=== PATIENT | female | born 1975 | race Caucasian/White ===

== ENCOUNTER 2025-02-02 15:15 | Inpatient (IN) | payer BC, SELFPAY ==
[2025-02-02 15:58] VITALS: BP 108/62; PULSE 72; RESP 17; TEMP 36.8; O2SAT 95; BMI 27.1
[2025-02-02 18:00] VITALS: BP 103/61; PULSE 72; RESP 16; TEMP 36.9; O2SAT 96
[2025-02-02] MEDS: Cefdinir 300 MG Capsule PO (21:54)
[2025-02-02] MEDS: Midodrine HCl 5 MG Tablet PO (21:54)
[2025-02-02] MEDS: tiZANidine HCl 2 MG Tablet PO (21:54)
[2025-02-02] MEDS: Enoxaparin 80 MG/0.8 ML Syringe SC (21:54)
[2025-02-02 22:00] VITALS: PULSE 72; RESP 15; O2SAT 94
[2025-02-02 23:50] VITALS: BP 108/63; PULSE 70; RESP 16; TEMP 36.7; O2SAT 95
[2025-02-03] VITALS (8 sets, daily range): BP systolic 88–130; BP diastolic 37–74; PULSE 66–74; RESP 15–18; TEMP 36.7–37.2; O2SAT 93–97
[2025-02-03] MEDS: tiZANidine HCl 2 MG Tablet PO ×3 (05:20→20:14)
[2025-02-03] MEDS: Midodrine HCl 5 MG Tablet PO ×3 (05:20→20:46)
[2025-02-03 06:51] LABS: Absolute Lymphocyte Count 1.04 X10^3/uL (0.83-4.51); Absolute Neutrophil Count 9.2 X10^3/uL (2.0-7.7); Basophil% 0.8 % (0-1); Eosinophil# 0.18 X10^3/uL; Eosinophils% 1.5 % (0-5); Hematocrit 35.7 % (37-47); Hemoglobin 11.9 g/dL (12.0-15.0); Lymphocyte # 1.04 X10^3/ul (0.83-4.51); Lymphocyte % 8.8 % (19-41); Mean Corp Hgb Conc 33.3 g/dL (32-36); Mean Corpuscular Hgb 32.2 pg (27.0-32.0); Mean Corpuscular Volume 96.7 fL (81-99); Monocyte# 0.86 X10^3/uL; Monocyte% 7.3 % (0-10); NRBC Flagged by Analyzer 0 % (0-5); Neutrophil # 9.23 X10^3/uL (2.7-7.7); Neutrophil % 78.2 % (47-70); POSITIVE MORPHOLOGY YES; Platelet Count 380 K/mm3 (150-450); RBC Distribution Width CV 13.4 % (11.6-14.6); RBC Distribution Width SD 48.3 fl (35.1-43.9); Red Blood Count 3.69 M/mm3 (4.2-5.4); White Blood Count 11.8 K/mm3 (4.4-11.0)
[2025-02-03 07:02] LABS: International Normalized Ratio 1.8; Prothrombin Time (Protime)PT. 21.3 SECONDS (11.7-14.9)
[2025-02-03 07:25] LABS: Differential Indicated SCAN CRITERIA MET
[2025-02-03 07:27] LABS: Anion Gap 11 (5-15); BUN 20 mg/dL (4-19); BUN/Creat Ratio 24.1 RATIO (10-20); Calcium,Total 9.4 mg/dL (7.6-11.0); Carbon Dioxide 24.8 mmol/L (21.0-32.0); Chloride 98 mmol/L (98-108); Creatinine, Serum 0.81 mg/dL (0.70-1.20); EST Glomerular Filtration Rate 90 (>60); Estimated Creatinine Clearance 82.41 ml/min (50-250); Glucose 111 mg/dL (70-99); Potassium 4.3 mmol/L (3.3-5.1); Sodium Level 134 mmol/L (133-145)
[2025-02-03 07:50] LABS: Magnesium 2.2 mg/dL (1.5-2.2); Phosphorus 3.8 mg/dL (2.7-4.5)
[2025-02-03] MEDS: Enoxaparin 80 MG/0.8 ML Syringe SC ×2 (08:38→20:13)
[2025-02-03] MEDS: Cefdinir 300 MG Capsule PO ×2 (08:38→20:14)
[2025-02-03] MEDS: Amiodarone 200 MG Tablet PO (08:38)
[2025-02-03] MEDS: Multivitamins,Therapeutic Tablet 1 TABLET PO (08:38)
[2025-02-03] MEDS: Pantoprazole Sodium 40 MG Tablet PO (08:39)
--- NOTE | 2025-02-03 09:52 | PCM.HP.STD ---
HPI - General General Date of Admission: 02/02/25 Date of Service: 02/03/25 Chief Complaint: Non-traumatic spinal cord injury HPI Narrative VIC GOLDSTEIN, is a 49 YO F with a PMH of atrial flutter, rheumatic fever, mitral valve replacement, aortic valve replacement, chronic anticoagulation with warfarin, tricuspid valve repair and left atrial appendage closure who presented to an emergency room on 01/17/2025 with complaints of headache and back pain with radiation of pain into her chest. She was transferred to [facility] on January 18, 2025. She was started on a heparin drip. She underwent a stress test which showed probable variable breast attenuation artifact but ischemia could not be excluded. An echocardiogram was concerning for moderate to severe aortic valve regurgitation. The EF was 60 to 65%. Right ventricular systolic pressure was mildly elevated at 36. The tricuspid valve had mild to moderate regurgitation. She was seen by cardiology. Further cardiac workup was not pursued due to sudden onset of severe back pain with acute bilateral lower extremity weakness and numbness along with right arm weakness. Neurosurgery was consulted and she had an MRI of her thoracic, lumbar and cervical spine that showed heterogeneous fluid collection or mass at the level of T1-T6 with moderate cord compression and mild cord edema at T2-T4. Patient had a rapid loss of sensation and motor function from the nipple level down. She underwent emergent thoracic laminectomy (T1-T5), decompression and hematoma evacuation by Dr. Gentile. She was cleared to restart anticoagulation on January 21, 2025. Complications post op included hypotension, constipation and urine retention. She has a Valencia catheter present at admission to rehab and is on Cefdinir for UTI (had Rocephin 01/31-02/02). Apparently no culture was done.......requested results and none were sent. She is currently on Midodrine 5 mg TID but, at presentation she has severe orthostatic hypotension causing syncope. Recovered very quickly with lying her down. Abd is distended and tympanic. Can not tell when she is having a BM. Had a medium non-formed stool today. Was on stool softeners at the previous hospital (was on MiraLAX) but, on no stool softeners at the time of transfer. She was transferred to the acute inpt rehab unit at [facility] on 02/02/25 for 3 hours of therapy daily. Owns her own house, multilevel. Could live in the basement........there is a walk in shower and a kitchen down there. Has 1 step to enter the house. No ramp. Previously independent with all ADL's. Denies any hx of anx/depression. Feeling overwhelmed at the present time. All lab drawn this morning was personally reviewed. White blood cell count is elevated at 11.8 with 78% neutrophils. The immature granulocytes are 3.4% which is elevated. Hemoglobin is 11.9 and the MCV is 96.7. The RDW is elevated. Platelets are within normal limits. INR today is 1.8. Currently taking warfarin 2 mg p.o. daily and is also on therapeutic Lovenox until the INR is therapeutic. Sodium is 134 and the potassium is 4.3. Serum bicarb is normal. The BUN is 20 with a creatinine of 0.81 and a BUN/creatinine ratio of 24.1. Calcium is 9.4 and the phosphorus is 3.8 with a magnesium of 2.2. She had syncope when therapy got her up this morning. BP dropped from 130 systolic to 88/37 with going from lying down to sitting at the EOB with legs dependent. She received 5 mg of midodrine today. Fluid balance is -620 since admission to rehab yesterday. Chronic Valencia catheter for neurogenic bladder. ECHO: Left atrium is mildly to moderately dilated. Right atrium is normal in size. Left ventricular wall thickness is mildly increased with normal systolic function. Unable to assess diastolic dysfunction. There is a mechanical prosthesis at the mitral valve. No evidence of stenosis. No significant regurgitation. Aortic valve is trileaflet and was well-visualized. Leaflets are moderately thickened. There was no stenosis. There was moderate to severe regurgitation reported but she has no diastolic murmur. Tricuspid valve showed no evidence of stenosis but there was mild to moderate regurgitation. The IVC was dilated. [facility] Medical History (Updated 02/04/25 @ 16:[address] Brooke Alvarado DO) History of rheumatic fever Atrial flutter Chronic anticoagulation Spinal cord injury at T1-T6 level Home Medications ?Medication ?Instructions ?Recorded ?Last Taken ?Type amiodarone 200 mg tablet 200 mg PO DAILY b/p 02/02/25 Unknown History cefdinir 300 mg capsule 300 mg PO BID antibiotic 02/02/25 Unknown History enoxaparin 80 mg/0.8 mL 80 mg subcut Q12H dvt 02/02/25 Unknown History subcutaneous syringe ergocalciferol (vitamin D2) 1,250 1,250 mcg PO QWEEK supplement 02/02/25 Unknown History mcg (50,000 unit) capsule midodrine 5 mg tablet 5 mg PO TID B/P 02/02/25 Unknown History pantoprazole 40 mg tablet,delayed 40 mg PO DAILY Gerd 02/02/25 Unknown History release tizanidine 2 mg tablet 2 mg PO Q8H muscle relaxer 02/02/25 Unknown History warfarin 2 mg tablet 2 mg PO DAILY anticoagulant 02/02/25 Unknown History Allergy/AdvReac Type Severity Reaction Status Date / Time No Known Allergies Allergy Verified 02/02/25 19:37 Family History (Updated 02/03/25 @ 11:[address] Brooke Alvarado DO) Grandmother CVA (cerebral vascular accident) maternal GM of a stroke Father , of COVID complications. No problems noted. Other Hypertension Surgical History (Updated 02/03/25 @ 11:[address] Brooke Alvarado DO) History of left atrial appendage closure History of tricuspid valve repair H/O laminectomy History of mitral valve replacement with mechanical valve Social History (Updated 02/03/25 @ 11:[address] 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 [employer] Smoking Status: Never smoker alcohol intake: never substance use type: does not use diet: gluten free scott/jewish: Mennonite ROS Constitutional Constitutional: Reports fatigue and weakness; Denies anorexia, change in weight, chills, fever(s) or night sweats Eyes Eyes: Denies blurry vision, change in vision, eye pain or loss of vision ENT HEENT: Denies abnormal hearing, dysphagia, headache(s), hearing loss, nasal congestion or sore throat Cardiovascular Cardiovascular: Reports lightheadedness, syncope and weakness in extremities; Denies chest pain, dyspnea on exertion, edema, orthopnea, palpitations or paroxysmal nocturnal dyspnea Respiratory/Chest Respiratory/Chest: Denies cough, dyspnea, shortness of breath at rest, shortness of breath with exertion or wheezing Gastrointestinal Gastrointestinal: Reports change in bowel habits, change in stool character, constipation, fecal incontinence and other Details: abd distention ; Denies abdominal pain, cramping, diarrhea, dyspepsia, dysphagia, hematemesis, hematochezia, nausea or vomiting Genitourinary Genitourinary: Reports urinary incontinence and other Details: urine retention due to neurogenic bladder due to non-traumatic spinal cord injury ; Denies dysuria, hematuria or nocturia Musculoskeletal Musculoskeletal: Denies back pain, joint pain, joint swelling or neck pain Integumentary Integumentary: Reports other Details: No skin breakdown ; Denies jaundice or rash Neurologic Neurologic: Reports focal weakness, numbness, paresthesias, sensory deficit, syncope and weakness; Denies abnormal movements, behavior changes, confusion, convulsions, disequilibrium, dizziness, headache(s), memory loss, seizures, tremor(s) or vertigo Psychiatric Psychiatric: Denies anxiety, depression, homicidal ideation or suicidal ideation Endocrine Endocrinology: Denies change in body appearance, polydipsia or polyuria Hematologic/Lymphatic Hematologic/Lymphatic: Denies easy bleeding, easy bruising or lymphadenopathy Allergic/Immunologic Allergic/Immunologic: Denies rhinitis, eczemia or asthma Vital Signs Vital Signs Vital Signs: 02/02/25 15:58 02/02/25 15:58 02/02/25 18:00 Temperature 98.3 F 98.4 F Temperature Source Oral Oral Pulse Rate 72 72 Respiratory Rate 17 16 Respiratory Effort Respiratory Depth Respiratory Pattern Blood Pressure 108/62 103/61 Blood Pressure Mean 77 75 Blood Pressure Source Monitor Blood Pressure Position Semi-Fowlers Blood Pressure Location Left Arm Pulse Ox 95 96 Oxygen Delivery Method Room Air Room Air Room Air 02/02/25 22:00 02/02/25 23:50 02/03/25 05:17 Temperature 98.0 F 98.1 F Temperature Source Temporal Oral Pulse Rate 72 70 74 Respiratory Rate 15 16 17 Respiratory Effort Normal Non-Labored Respiratory Depth Normal Respiratory Pattern Normal Blood Pressure 108/63 99/53 L Blood Pressure Mean 78 68 Blood Pressure Source Monitor Blood Pressure Position Semi-Fowlers Blood Pressure Location Left Arm Pulse Ox 94 95 93 Oxygen Delivery Method Room Air Room Air Room Air Weight Weight: 157 lb 13.616 oz Body Mass Index (BMI) 27.1 Physical Exam Const alert, oriented x3 and no apparent distress General Appearance: cooperative, well kempt and well developed HEENT normocephalic, head/scalp atraumatic and hearing grossly normal bilaterally HEENT Narrative: Dry mucous membranes, tongue protrudes on the midline. No buccal lesions. No evidence of thrush. Eyes PERRL, EOMs intact bilaterally, conjunctivae normal and no scleral icterus Eyes Narrative: No discharge from the eyes and no mattering of the eyelashes. General Eye: normal appearance of both eyes and normal light reflex Neck full ROM, supple, no meningeal signs, thyroid normal, No nodes and no carotid bruits General: trachea midline Chest Chest: symmetrical chest wall rise Resp normal respiratory effort Resp Narrative: Clear to auscultation with good air exchange anterior and lateral. Will listen to the posterior lung vicente when I have helped to roll her on her side. Occasional nonproductive cough. Denies shortness of breath. No chest pain. Cardio regular rate, regular rhythm, S1 normal heart sound, S2 normal heart sound, no rub and no gallops Cardio Narrative: click in the mitral listening post due to mechanical MV. Very soft systolic MM at the 2nd RICS with radiation to the LVOT. No diastolic MM appreciated. GI GI Narrative: Mildly distended and tympanic. Nontender to palpation. Active bowel sounds in all 4 quadrants. No guarding with palpation. No sensation to pinprick of the abd wall. no CVA tenderness Bladder / Kidney Exam: catheter in place Extremity no pedal edema Extremity Narrative: AFO's present on both LE's to prevent foot drop and pressure ulcers on the heels. Skin no rashes or lesions noted Skin Narrative: I could not examine the incision because she was lying on her back. Will examine when I have helpt to turn her. General Skin Exam: no breakdown Neuro oriented x3 and CN's II-XII intact bilaterally Neuro Narrative: Good strength in the UE's. Good hand it field technician BL. Intact sensation to pinprick in both UE's. She has no sensation to light touch or pinprick from 2 above the nipple line distally. No movement in the LE's. Valencia in place for neurogenic bladder. Has fecal incontinence and does not know when she is having a BM. Psych thought process normal, cooperative, speech normal, denies hallucinations, denies homicidal ideation and denies suicidal ideation Psych Narrative: affect is flat. We discussed the sx of depression and although she feels overwhelmed she does not feel depressed. She is feeling fatigued a lot of the time. Will continue to monitor for signs of depression closely. Appearance: grossly normal, appropriate and well kempt Attitude: calm and engaged Activity / Motor Behavior: appropriate eye contact Speech: normal speech Mood & Affect: flat affect Results Lab / Micro Data 02/03/25 06:43 02/04/25 05:18 Labs: Laboratory Results - last 24 hr 02/03/25 06:43: WBC 11.8 H, RBC 3.69 L, Hgb 11.9 L, Hct 35.7 L, MCV 96.7, MCH 32.2 H, MCHC 33.3, RDW Std Deviation 48.3 H, RDW Coeff of Hans 13.4, Plt Count 380, MPV 11.0, Immature Gran % (Auto) 3.400 H, Neut % (Auto) 78.2 H, Lymph % (Auto) 8.8 L, [place] % (Auto) 7.3, Eos % (Auto) 1.5, Baso % (Auto) 0.8, Absolute Neuts (auto) 9.2 H, Absolute Lymphs (auto) 1.04, Nucleated RBC % 0, PT 21.3 H, INR 1.8, Sodium 134, Potassium 4.3, Chloride 98, Carbon Dioxide 24.8, Anion Gap 11, BUN 20 H, Creatinine 0.81, Estim Creat Clear Calc 82.41, Est GFR (MDRD) Non-Af 90, BUN/Creatinine Ratio 24.1 H, Glucose 111 H, Calcium 9.4, Phosphorus 3.8, Magnesium 2.2 Assessment & Plan Assessment/Plan (1) Physical debility: (2) Spinal cord injury at T1-T6 level: (3) H/O laminectomy: PLAN: Laminectomy T1-T5 with decompression and evacuation of hematoma on 01/19/2025 at [facility] by Dr. Gentile. (4) Paraplegia following spinal cord injury: PLAN: No sensation up to about 2 above the nipple line and has bowel incontinence and urine retention. Good strength in the UE's with intact sensation. (5) Urine retention: PLAN: Valencia catheter in place at admission to rehab. (6) Neurogenic dysfunction of the urinary bladder: (7) UTI (urinary tract infection): QUALIFIERS: Urinary tract infection type: acute cystitis Hematuria presence: without hematuria Qualified Code(s): N30.00 - Acute cystitis without hematuria PLAN: Likely due to neurogenic bladder/urine retention. Present at admission to rehab. Received 3 days of IV Rocephin and was transitioned to cefdinir 300 mg twice daily at the time of transfer. (8) Autonomic orthostatic hypotension: (9) Constipation: QUALIFIERS: Constipation type: other constipation type Qualified Code(s): K59.09 - Other constipation (10) Dehydration: (11) Chronic anticoagulation: PLAN: With warfarin due to mechanical MV. (12) History of mitral valve replacement with mechanical valve: (13) History of tricuspid valve repair: (14) Atrial flutter: QUALIFIERS: Atrial flutter type: unspecified Qualified Code(s): I48.92 - Unspecified atrial flutter (15) History of left atrial appendage closure: PLAN: Plan PLAN PT for gait stability OT for ADL's ST for evaluation Analgesics as needed Bowel protocol Fall precautions Assess for Anxiety/Depression GI prophylaxis -pantoprazole DVT prophylaxis -continue warfarin until the INR is therapeutic. Continue Lovenox until the INR is therapeutic. Follow up with [] following DC from [facility] Rehab AM lab including CMP, CBC, Mag and Phos 1 L of normal saline over 2 hours then decrease rate to 80 cc/h Continue midodrine 5 mg 3 times daily. Recheck orthostatics in the a.m. and if she is still orthostatic we will need to increase the midodrine dose. UA today-Valencia catheter present at admission [facility]R until the INR is stable and therapeutic, > 2.0 CMP, TSH, cortisol, PT/INR in the AM Charges/Coding Visit Charges Inpatient E&M: 13300 Init Hosp L3
--- NOTE | 2025-02-03 10:48 | RAD_ITS ---
PROCEDURE: ABDOMEN SINGLE VIEW 02/03/2025 REASON FOR EXAM: CONSTIPATION TECHNIQUE: Single view abdomen. FINDINGS: The bowel gas pattern is unremarkable. A moderate generalized fecal burden is seen. There is no evidence of obstruction or ileus. There is no evidence of free perforation. There is no evidence of hepatosplenomegaly. No abnormal soft tissue calcifications are seen. Osseous structures are unremarkable for age. RAD/Abdomen Single View IMPRESSION: Nonspecific abdomen. Moderate fecal burden. Reading Location: [place] [id number]
[2025-02-03] MEDS: 0.9% Normal Saline (1000mL) 1,000 ML 80 ML IV (11:38)
[2025-02-03 11:39] LABS: Bacteria 0 SEEN /hpf (None Seen); Mucous, Urine 0 SEEN /hpf (<or=2+); Squamous Epithelial Cells - UA 0 SEEN /hpf (5-10)
[2025-02-03 11:41] LABS: Color, Urine Yellow (Yellow); Glucose, Dipstick Normal (Normal); Ketone-Dipstick Negative (Negative); Leukocyte Esterase-Dipstick 500 /ul (Negative); Nitrite-Dipstick Positive (Negative); Occult Blood-Urine 25 /ul (Negative); Protein-Dipstick 15 mg/dl (Negative); Urine Bilirubin Dipstick Negative (Negative); Urine Clarity Cloudy (Clear); Urine Urobilinogen Normal (Normal)
[2025-02-03 11:52] LABS: Amorphous Sediment 2+; White Blood Cells 5-10 SEEN /hpf (0-5)
[2025-02-03 11:53] LABS: Coarse Granular Cast 0-5 SEEN /lpf (0-5 /lpf); Red Blood Cells-Urine 0 SEEN /hpf (0-5)
--- NOTE | 2025-02-03 14:59 | REHABEVAL_ITS ---
Admission Information Primary Diagnosis:: DEBITILY DUE TO NON-TRAUMATIC SPINAL CORD INJURY WITH PARAPLEGIA Status Changes from Prescreening?: No changes Identified Actual Problem List:: Infection, Skin Intergrity, Bladder Incontinence (Neurogenic bladder with urine retention), Bowel, Incontinence, Bowel, Constipation, Alteration in Sleep, Mobility Impaired, Self Care Deficit, BP, Hypotension, Fluid Change-Dehydration and Alteration-Leisure Activ. Potential Problem List:: DVT, Bleeding, Infection, UTI, Aspiration, Falls, Skin Integrity and Depression Risk of Complications DVT: ISABEL Víctore and - (Continue warfarin 2 mg daily and Lovenox. Discontinue the Lovenox when the INR is greater than 2.) Bleeding: Monitor Lab Values, Nursing to Teach Precautions for anti-coagulation therapy., Wound, if applicable, to be assessed every shift. and Stroke patients assessed for lethargy or change in status. Infection: Clinical Staff to Monitor for S/S of infection: and S/S of infection include fever, redness, warmth, etc. Urinary Tract Infection: Monitor for frequency, burning, discomfort, or incontinence. and Nursing will obtain urine sample for urinalysis and C&S when ordered. Aspiration: Clinical staff will monitor for coughing, drooling, congestion., Speech will evaluate swallowing and dsyphasia. and Nursing will monitor patient swallowing during meals. Falls: Patient will be evaluated for Fall Precautions and Patient will be placed on Fall Precautions as indicated per protocol. Skin Breakdown: Nursing will assess skin daily using assessment tool. and Nursing will place on Skin Breakdown Precautions as indicated. Pain: Clinical staff will assess patient's pain level per protocol., Medications will be given, if needed, and the pain level reassessed. and Other methods: Massage, distraction, decrease stimulus, etc. used PRN. Plan of Care Patient requires physician specializing in physical medicine and rehab oversight to provide close medical supervision of rehab issues including: Pain Management, Sleep Problems, Bowel and Bladder, Medical and co-morbidity Management, DVT prophylaxis, Rehabilitation Leadership and Coordination of treatment team Patient needs Physical Therapy: For a minimum of 1 hour and At least 5 out of 7 days Patient needs Physical Therapy to improve:: Mobility, Strengthening, Transfers, Stretching, ROM, Endurance, Stairs, Gait and Balance Patient needs Occupational Therapy: For a minimum of 1 hour and At least 5 out of 7 days Patient needs Occupational Therapy to improve ADL's incl.: Eating, Grooming, Bathing, Dressing, Toileting, Toilet transfers, Community Reintegration, Higher functioning activities, Household tasks, Adaptive Equipment, Splinting and Other activities as determined Patient requires speech therapy for: Swallowing Patient requires 24/7 Rehabilitation Nursing for: Pain Issues, Identifying and preventing risk factors, Monitoring and reporting current medical conditions, Assisting with ambulation, transfer, and all ADL's, Teaching patients about disease process and medications, Family teaching, Providing safe environment, Bowel and Bladder Issues, Skin integrity and Medication Management Patient needs Reproduction Machine Loader/ Case Management for: Discharge Planning, Arranging Home Equipment or Services and Family Interventions Patient needs Dietary and Nutrition Services for: Adequate Nutrition, Nutritional Supplements and Nutritional Education Goals Goals Patient will remain: free from falls Patient will perform eating at: MOD I level of assist. Patient will perform bed mobility at: - (Contact-guard assist) Patient will complete transfers from bed to chair at: - (She will complete sliding board transfers from surface to surface at contact-guard assist with patient shifting to place and remove the board.) Patient will ambulate: - (Not a goal at this time) Patient will propel wheelchair: - (150 feet at standby assist on various surfaces and up/down inclines.) Patient will complete upper body dressing at: - (Set up level) Patient will complete lower body dressing at: - (Minimal assistance using adaptive equipment as needed to increase independence with self-care) Patient will complete toilet transfer at: - (Min assist) Patient will complete toileting at: - (Min assist) Patient will perform bathing at: - (She will complete upper body bathing at independent level and lower body bathing at min assist with adaptive equipment as needed) Patient will perform Tub/Shower transfer at: - (Min assist with adaptive equipment as needed and DME as needed.) Patient will complete grooming at: MOD I level of assist. (While sitting at the sink) Patient will achieve: - (not a goal......will need a ramp) Patient will have pain level of: of 3 or less Patient's skin will: remain intact Patient will receive: adequate nutrition. Discharge Planning Pt Prognosis for Sig. Practical Improv. w/in Reasonable Time: Good Estimated Length of stay (days): 28 Anticipated D/C Destination: TBD Was Preadmission Assessment Accurate?: Yes
[2025-02-03] MEDS: Jantoven 2 MG Tablet PO (17:14)
[2025-02-03] MEDS: Bisacodyl 5 MG Tablet 10 MG PO (17:14)
[2025-02-04] MEDS: 0.9% Normal Saline (1000mL) 1,000 ML 80 ML IV ×2 (00:14→12:03)
[2025-02-04] MEDS: tiZANidine HCl 2 MG Tablet PO ×3 (05:08→21:45)
[2025-02-04] MEDS: Midodrine HCl 5 MG Tablet PO ×2 (05:08→14:40)
[2025-02-04 06:00] VITALS: BP 114/63; PULSE 75; RESP 14; TEMP 37; O2SAT 95
[2025-02-04 06:20] LABS: ALB/GLOB Ratio 0.9 RATIO (0.9-2.4); AST(SGOT) 40 U/L (<=31); Alanine Aminotransfer ALT/SGPT 41 U/L (<=34); Albumin, Serum 3.1 g/dL (3.5-5.0); Alkaline Phosphatase 77 U/L (35-104); Anion Gap 10 (5-15); BUN 17 mg/dL (4-19); BUN/Creat Ratio 23.3 RATIO (10-20); Calcium,Total 8.7 mg/dL (7.6-11.0); Carbon Dioxide 23.4 mmol/L (21.0-32.0); Chloride 103 mmol/L (98-108); Creatinine, Serum 0.73 mg/dL (0.70-1.20); EST Glomerular Filtration Rate 101 (>60); Estimated Creatinine Clearance 91.44 ml/min (50-250); Globulin 3.4 g/dL (2.2-4.2); Glucose 96 mg/dL (70-99); Protein, Total 6.5 g/dL (5.9-8.4); Sodium Level 136 mmol/L (133-145); Total Bilirubin 0.38 mg/dL (0.00-1.30)
[2025-02-04 06:21] LABS: International Normalized Ratio 1.9; Prothrombin Time (Protime)PT. 22.1 SECONDS (11.7-14.9)
[2025-02-04 07:37] VITALS: BP 106/64; BP 114/63; PULSE 73; PULSE 74
[2025-02-04] MEDS: Enoxaparin 80 MG/0.8 ML Syringe SC ×2 (08:51→21:45)
[2025-02-04] MEDS: Polyethylene Glycol 3350 17 GM PACKET PO (08:51)
[2025-02-04] MEDS: Pantoprazole Sodium 40 MG Tablet PO (08:51)
[2025-02-04] MEDS: Amiodarone 200 MG Tablet PO (08:51)
[2025-02-04] MEDS: Cefdinir 300 MG Capsule PO ×2 (08:51→21:45)
[2025-02-04 10:00] VITALS: BP 103/55; PULSE 67; RESP 16; TEMP 36.8; O2SAT 95; O2SAT 96
[2025-02-04] MEDS: Multivitamins,Therapeutic Tablet 1 TABLET PO (12:03)
[2025-02-04 14:00] VITALS: BP 119/57; PULSE 76; RESP 16; TEMP 36.7; O2SAT 95
--- NOTE | 2025-02-04 16:30 | PN_ITS ---
Subjective Subjective Afebrile VSS -blood pressure lying down today was 114/63 with a heart rate of 74. became orthostatic and near syncopal with sitting up for a longer period of time in the WC. No elevated blood pressures. Maintaining appropriate oxygen saturation on RA Oral intake - FOOD good FLUIDS good oral intake and she is also receiving IV fluids. Fluid balance for 02/03/2025 was -530 but overnight was +1075 cc. Discussed with nursing - no problems that need addressed. She had 2 bowel movements on 02/03/2025 and has had 3 bowel movements today. 3 bowel movements today were large and soft. He remains incontinent of feces. Reviewed the THERAPY notes Medication list reviewed. INR today is 1.9. BMP today showed a sodium of 134 and a potassium of 4.0. Serum bicarb is normal. BUN today is 17, down from 20 yesterday and the creatinine is 0.73. The BUN/creatinine ratio is 23.3. AST and ALT are very mildly elevated but the total bilirubin and the alkaline phosphatase are normal. Serum albumin is 3.1. A.m. cortisol is 23.6. TSH is normal at 2.69. UA showed 5-10 WBCs with no bacteria. Urine culture was ordered but I suspect that she likely has some Yulissa. Denies cephalgia. Denies lightheadedness lying down and was doing well sitting up in the wheelchair but tried to push it and then became near syncopal. Denies chest pain, shortness of breath, cough, sore throat, nausea/vomiting/abdominal pain. Objective Data Objective Data Vital Signs: Vital Signs Temp Pulse Resp BP Pulse Ox O2 Del Method 98.2 F 67 16 103/55 L 96 Room Air 02/04/25 10:00 02/04/25 10:00 02/04/25 10:00 02/04/25 10:00 02/04/25 10:00 02/04/25 10:00 Oxygen Delivery Method Room Air Weight: 157 lb 13.616 oz Body Mass Index (BMI) 27.1 Intake & Output: Intake and Output for Last 24 Hours 02/02/25 02/03/25 02/04/25 23:59 23:59 23:59 Intake Total 240 / 240 2070 / 2070 2975.33 / 2975.33 Output Total 900 / 1200 2600 / 2600 1900 / 1900 Balance -660 / -960 -530 / -530 1075.33 / 1075.33 Lab / Micro Data 02/03/25 06:43 02/04/25 05:18 Labs: Laboratory Results - last 24 hr 02/04/25 05:18: PT 22.1 H, INR 1.9, Sodium 136, Potassium 4.0, Chloride 103, Carbon Dioxide 23.4, Anion Gap 10, BUN 17, Creatinine 0.73, Estim Creat Clear Calc 91.44, Est GFR (MDRD) Non-Af 101, BUN/Creatinine Ratio 23.3 H, Glucose 96, Calcium 8.7, Total Bilirubin 0.38, AST 40 H, ALT 41 H, Alkaline Phosphatase 77, Total Protein 6.5, Albumin 3.1 L, Globulin 3.4, Albumin/Globulin Ratio 0.9, TSH 2.690, Cortisol AM Sample 23.60 H Physical Exam Const alert, oriented x3 and no apparent distress Constitutional Narrative: upbeat today. General Appearance: cooperative HEENT Mouth: dry mucous membranes Neck supple and no meningeal signs Resp normal respiratory effort Resp Narrative: Clear to auscultation with good air exchange anterior and lateral. Not tachypneic, no conversational dyspnea. Cardio regular rate, regular rhythm and no gallops Cardio Narrative: click in the mitral listening post due to mechanical MV. Very soft systolic MM at the 2nd RICS with radiation to the LVOT. No diastolic MM appreciated. GI GI Narrative: The abdomen is less distended and tympanic today. She had no pain with palpation. Bowel sounds are active in all quadrants. no CVA tenderness Narrative: Urine in the Valencia tubing is clear and pale today Bladder / Kidney Exam: catheter in place Extremity no pedal edema Extremity Narrative: AFO's present on both LE's to prevent foot drop and pressure ulcers on the heels. Skin no rashes or lesions noted General Skin Exam: no breakdown Rashes: no rashes Psych cooperative and affect normal Psych Narrative: Denies feeling depressed. She also denies feeling anxious. Assessment & Plan Assessment/Plan (1) Physical debility: (2) Spinal cord injury at T1-T6 level: (3) H/O laminectomy: (4) Paraplegia following spinal cord injury: (5) Urine retention: (6) Neurogenic dysfunction of the urinary bladder: (7) UTI (urinary tract infection): QUALIFIERS: Urinary tract infection type: acute cystitis H ematuria presence: without hematuria Qualified Code(s): N30.00 - Acute cystitis without hematuria (8) Autonomic orthostatic hypotension: (9) Constipation: QUALIFIERS: Constipation type: other constipation type Qualified Code(s): K59.09 - Other constipation (10) Dehydration: (11) Chronic anticoagulation: (12) History of mitral valve replacement with mechanical valve: (13) History of tricuspid valve repair: (14) Atrial flutter: QUALIFIERS: Atrial flutter type: unspecified Qualified Code(s): I 48.92 - Unspecified atrial flutter (15) History of left atrial appendage closure: PLAN: Plan 1. Continue therapy 2. Continue IV fluids, normal saline at 80 cc/h 3. Recheck orthostatics daily x 3 days 4. Increase the midodrine to 10 mg 3 times daily. If the blood pressure lying down becomes high we will have nursing elevate the head of the bed to 30 degrees. Charges/Coding Visit Charges Inpatient E&M: 20050 [facility] L1
--- NOTE | 2025-02-04 16:44 | CASEMGMT ---
Social Work SW requested pt have family provide copies of advance directives to place on file. Pt unsure who she named as HCPOA. Jacqueline Jennings APPLICATION OPERATIONS ENGINEER SKIN PILER
--- NOTE | 2025-02-04 16:50 | CASEMGMT ---
Social Work SW met with patient to complete initial assessment. Introduced self and role. Educated to [employer] insurance, NRD 02/08, review process and does not require an advanced notice. Verified/updated contacts and preferred name. Patient confirmed code status as full code. Pt is currently a milagro lift and paraplegic from nipple line down. Pt emotional during assessment. SW allowed time and safe space for pt to express feelings. Provided ongoing supportive listening. Pt overall is optimistic to recovery and has robust, strong support system from family and hindu family. Though, pt denied visit from [facility] Engineering Group Leader during stay. Pt stated the plan is to return home regardless of LOF with the assistance from family and friends. SW educated to insurance coverage with several DME items and this worker to assist with DC planning. Explored pt can have FFSU and can accommodate a hospital bed. SW offered ongoing supportive visits during stay. Pt appreciative. Jacqueline Jennings SPECIAL TESTER SIDE TRIMMER
[2025-02-04 18:00] VITALS: BP 100/62; PULSE 76; RESP 16; TEMP 36.9; O2SAT 97
[2025-02-04] MEDS: Jantoven 2 MG Tablet PO (18:06)
[2025-02-04] MEDS: Midodrine HCl 5 MG Tablet 10 MG PO (21:45)
[2025-02-04 22:00] VITALS: BP 110/62; PULSE 74; RESP 16; TEMP 36.8; O2SAT 97
[2025-02-05] MEDS: 0.9% Saline Lock 10 ML Syringe IV (00:20)
[2025-02-05] MEDS: 0.9% Normal Saline (1000mL) 1,000 ML 80 ML IV (01:19)
[2025-02-05] MEDS: tiZANidine HCl 2 MG Tablet PO ×3 (05:48→21:10)
[2025-02-05] MEDS: Midodrine HCl 5 MG Tablet 10 MG PO ×3 (05:48→21:09)
[2025-02-05 06:00] VITALS: BP 114/66; PULSE 75; RESP 15; TEMP 36.6; O2SAT 95
[2025-02-05 06:24] LABS: International Normalized Ratio 1.8; Prothrombin Time (Protime)PT. 21.7 SECONDS (11.7-14.9)
[2025-02-05] MEDS: Enoxaparin 80 MG/0.8 ML Syringe SC ×2 (07:46→21:09)
[2025-02-05] MEDS: Pantoprazole Sodium 40 MG Tablet PO (07:47)
[2025-02-05] MEDS: Multivitamins,Therapeutic Tablet 1 TABLET PO (07:47)
[2025-02-05] MEDS: Cefdinir 300 MG Capsule PO ×2 (07:47→21:09)
[2025-02-05] MEDS: Amiodarone 200 MG Tablet PO (07:47)
[2025-02-05] MEDS: Polyethylene Glycol 3350 17 GM PACKET PO (07:47)
[2025-02-05 10:00] VITALS: BP 107/54; PULSE 64
--- NOTE | 2025-02-05 11:48 | PN_ITS ---
Subjective Subjective Afebrile VSS -blood pressure over the past 24 hours has ranged from 100/62 to 119/57. The heart rate is within normal limits. Maintaining appropriate oxygen saturation on RA-95 to 97%. Oral intake - FOOD good FLUIDS good. Fluid balance yesterday was +665 and overnight she was +400.No BM today but, had multiple over the past 2 days secondary to laxatives given for increased stool burden on KUB Discussed with nursing - no problems that need addressed. Orthostatics were not done today. Reviewed the THERAPY notes Medication list reviewed. She is complaining of some tightness in her upper trapezius muscles and the posterior neck which she attributes to doing upper extremity exercises. Denies cephalgia. Tells me the lightheadedness is better today. The midodrine was increased to 10 mg 3 times daily yesterday. She denies chest pain, cough, sore throat, shortness of breath, nausea/vomiting/abdominal pain. No pain in her legs. Urine in the Valencia bag is a paler yellow and clear. INR is 1.8 today, down from 1.9 yesterday despite an extra 1 mg of Coumadin. Objective Data Objective Data Vital Signs: Vital Signs Temp Pulse Resp BP Pulse Ox O2 Del Method 97.9 F 64 15 107/54 L 95 Room Air 02/05/25 06:00 02/05/25 10:00 02/05/25 06:00 02/05/25 10:00 02/05/25 06:00 02/05/25 06:00 Oxygen Delivery Method Room Air Weight: 157 lb 13.616 oz Body Mass Index (BMI) 27.1 Intake & Output: Intake and Output for Last 24 Hours 02/03/25 02/04/25 02/05/25 23:59 23:59 23:59 Intake Total 2070 / 2070 3815.33 / 3815.33 1500 / 1500 Output Total 2600 / 2600 3150 / 3150 1100 / 1100 Balance -530 / -530 665.33 / 665.33 400 / 400 Lab / Micro Data 02/03/25 06:43 02/04/25 05:18 Labs: Laboratory Results - last 24 hr 02/05/25 05:39: PT 21.7 H, INR 1.8 Physical Exam Const alert, oriented x3 and no apparent distress Constitutional Narrative: Upbeat today, but, was tearful last night. Does not feel she is depressed......she is sad which is a normal response to her current situation. General Appearance: cooperative HEENT Mouth: dry mucous membranes Neck supple and no meningeal signs Resp normal respiratory effort Resp Narrative: Clear to auscultation with good air exchange anterior and lateral. Not tachypneic, no conversational dyspnea. Cardio regular rate, regular rhythm and no gallops Cardio Narrative: click in the mitral listening post due to mechanical MV. Very soft systolic MM at the 2nd RICS with radiation to the LVOT. No diastolic MM appreciated. GI GI Narrative: The abdomen is less distended and tympanic today. She had no pain with palpation. Bowel sounds are active in all quadrants. no CVA tenderness Narrative: Urine in the Valencia tubing is clear and pale today Bladder / Kidney Exam: catheter in place Extremity no pedal edema Extremity Narrative: AFO's present on both LE's to prevent foot drop and pressure ulcers on the heels. Skin no rashes or lesions noted General Skin Exam: no breakdown Rashes: no rashes Psych cooperative and affect normal Psych Narrative: Denies feeling depressed. She also denies feeling anxious. Assessment & Plan Assessment/Plan (1) Physical debility: (2) Spinal cord injury at T1-T6 level: (3) H/O laminectomy: (4) Paraplegia following spinal cord injury: (5) Urine retention: (6) Neurogenic dysfunction of the urinary bladder: (7) UTI (urinary tract infection): QUALIFIERS: Urinary tract infection type: acute cystitis H ematuria presence: without hematuria Qualified Code(s): N30.00 - Acute cystitis without hematuria (8) Autonomic orthostatic hypotension: (9) Dehydration: (10) Chronic anticoagulation: (11) History of mitral valve replacement with mechanical valve: (12) History of tricuspid valve repair: (13) Atrial flutter: QUALIFIERS: Atrial flutter type: unspecified Qualified Code(s): I 48.92 - Unspecified atrial flutter (14) History of left atrial appendage closure: PLAN: Plan 1. Continue therapy 2. Add arthritis cream twice daily to the posterior neck and upper trapezius muscles. 3. Increase the warfarin dose to 3 mg daily and give 1 mg now for total of 4 mg today. Discontinue Lovenox when the INR is consistently greater than 2. 4. Continue to monitor closely for any signs of depression. 5. Await the results of the orthostatic vital signs today. She was able to tolerate therapy sitting up in a wheelchair today without lightheadedness/near syncope. Will continue midodrine 10 mg 3 times daily. 6. Continue IV fluids and recheck a BMP in the AM. Charges/Coding Visit Charges Inpatient E&M: 10937 Subs Hosp L1
[2025-02-05 11:55] VITALS: BP 88/51; BP 95/49; PULSE 69
[2025-02-05 14:00] VITALS: BP 99/54; PULSE 67
[2025-02-05] MEDS: Warfarin (BKC) 3 MG Tablet PO (17:25)
[2025-02-05 18:00] VITALS: BP 124/63; PULSE 68; RESP 16; TEMP 36.6; O2SAT 95
[2025-02-05] MEDS: Arthritis Pain Compound 60 CLICK TUBE TOPICAL (21:09)
[2025-02-05 22:00] VITALS: BP 93/60; PULSE 73; RESP 16; TEMP 36.7; O2SAT 96
[2025-02-06 06:00] VITALS: BP 113/63; PULSE 71; RESP 16; TEMP 36.7; O2SAT 96
[2025-02-06] MEDS: tiZANidine HCl 2 MG Tablet PO ×3 (06:01→20:21)
[2025-02-06] MEDS: Midodrine HCl 5 MG Tablet 10 MG PO ×3 (06:01→20:20)
[2025-02-06] MEDS: Enoxaparin 80 MG/0.8 ML Syringe SC ×2 (07:52→20:20)
[2025-02-06] MEDS: Arthritis Pain Compound 60 CLICK TUBE TOPICAL ×2 (07:53→20:19)
[2025-02-06] MEDS: Cefdinir 300 MG Capsule PO ×2 (07:53→20:21)
[2025-02-06] MEDS: Pantoprazole Sodium 40 MG Tablet PO (07:53)
[2025-02-06] MEDS: Amiodarone 200 MG Tablet PO (07:53)
[2025-02-06] MEDS: Polyethylene Glycol 3350 17 GM PACKET PO (07:54)
[2025-02-06 07:59] LABS: International Normalized Ratio 1.9; Prothrombin Time (Protime)PT. 22.2 SECONDS (11.7-14.9)
[2025-02-06 08:18] LABS: Anion Gap 9 (5-15); BUN 10 mg/dL (4-19); Calcium,Total 8.9 mg/dL (7.6-11.0); Chloride 103 mmol/L (98-108); Creatinine, Serum 0.69 mg/dL (0.70-1.20); EST Glomerular Filtration Rate 107 (>60); Estimated Creatinine Clearance 96.74 ml/min (50-250); Glucose 106 mg/dL (70-99); Sodium Level 137 mmol/L (133-145)
[2025-02-06 10:00] VITALS: BP 119/56; PULSE 66
--- NOTE | 2025-02-06 11:37 | PCM.PROGNOTE ---
Subjective Subjective Ada was seen on team rounds today. Her sisters were present in the room for rounds. Afebrile VSS -blood pressures over the past 24 hours have ranged from 93/62 124/63. Current blood pressure is 119/56. Heart rate is within normal limits. Maintaining appropriate oxygen saturation on RA Oral intake - FOOD good FLUIDS good. IV fluids have been discontinued. Discussed with nursing - no problems that need addressed Reviewed the THERAPY notes Medication list reviewed. INR is 1.9 today. Dose was increased to 3 mg daily yesterday and she got an extra 1 mg for a total of 4 mg yesterday. Neck pain and shoulder pain better with arthritis cream. Denies cephalgia. Dizziness has improved significantly with the increase in the Midodrine dose. Denies CP, palpitations, SOB, N/V/abd pain and nerve pain. Objective Data Objective Data Vital Signs: Vital Signs Temp Pulse Resp BP Pulse Ox O2 Del Method 98.1 F 66 16 119/56 L 96 Room Air 02/06/25 06:00 02/06/25 10:00 02/06/25 06:00 02/06/25 10:00 02/06/25 06:00 02/06/25 06:00 Oxygen Delivery Method Room Air Weight: 157 lb 13.616 oz Body Mass Index (BMI) 27.1 Intake & Output: Intake and Output for Last 24 Hours 02/04/25 02/05/25 02/06/25 23:59 23:59 23:59 Intake Total 3815.33 / 3815.33 2740 / 2740 1020 / 1020 Output Total 3150 / 3150 1900 / 1900 2950 / 2950 Balance 665.33 / 665.33 840 / 840 -1930 / -1930 Lab / Micro Data 02/03/25 06:43 02/06/25 07:01 Labs: Laboratory Results - last 24 hr 02/06/25 07:01: PT 22.2 H, INR 1.9, Sodium 137, Potassium 4.0, Chloride 103, Carbon Dioxide 25.0, Anion Gap 9, BUN 10, Creatinine 0.69 L, Estim Creat Clear Calc 96.74, Est GFR (MDRD) Non-Af 107, BUN/Creatinine Ratio 14.0, Glucose 106 H, Calcium 8.9 Micro: Microbiology 02/03/25 11:30 Urine Catheter - Valencia Urine Culture - Preliminary Gram negative cipriano GNR lactose marine pipefitter helper GNR Poss Pseudomonas sp Physical Exam Const alert, oriented x3 and no apparent distress Resp normal respiratory effort Resp Narrative: Clear to auscultation with good air exchange anterior and lateral. Not tachypneic, no conversational dyspnea. Cardio regular rate, regular rhythm and no gallops Cardio Narrative: click in the mitral listening post due to mechanical MV. Very soft systolic MM at the 2nd RICS with radiation to the LVOT. No diastolic MM appreciated. GI non-tender GI Narrative: mildly tympanic. Having regular BM's. BS's present in all quadrants. Denies pain with palpation. Extremity Extremity Narrative: no pitting edema Skin Rashes: no rashes Neuro Neuro Narrative: sleeping well. Good appetite. Denies feeling depressed. Engaged and making good eye contact. Assessment & Plan Assessment/Plan (1) Physical debility: (2) Spinal cord injury at T1-T6 level: (3) H/O laminectomy: (4) Paraplegia following spinal cord injury: (5) Urine retention: (6) Neurogenic dysfunction of the urinary bladder: (7) UTI (urinary tract infection): QUALIFIERS: Urinary tract infection type: acute cystitis Hematuria presence: without hematuria Qualified Code(s): N30.00 - Acute cystitis without hematuria (8) Autonomic orthostatic hypotension: (9) Dehydration: (10) Chronic anticoagulation: (11) History of mitral valve replacement with mechanical valve: (12) History of tricuspid valve repair: (13) Atrial flutter: QUALIFIERS: Atrial flutter type: unspecified Qualified Code(s): I48.92 - Unspecified atrial flutter (14) History of left atrial appendage closure: (15) Subtherapeutic international normalized ratio (INR): PLAN: Plan 1. Continue therapy 2. No changes to the drug regimen today 3. IV fluids have been discontinued. 4. I spent time with her family updating them on her condition and doing some education about spinal injuries. I answered all questions. Miri wants to go home from rehab but, she has really not discussed this with her sisters. They were told they can come in for training in how to use the [place], using the sliding board, caring for the catheter, preventing decubitus ulcers etc. They seem overwhelmed. Plan on providing continuing education. I am encouraged by the proprioception she is experiencing in her hips, knees and ankles. Still can not feel light touch and pinprick. 5. Give a total of 5 mg of warfarin today and continue with daily PT/INR. Charges/Coding Visit Charges Inpatient E&M: 50100 Subs Hosp L1
[2025-02-06] MEDS: Multivitamins,Therapeutic Tablet 1 TABLET PO (12:12)
--- NOTE | 2025-02-06 13:04 | CASEMGMT ---
Social Work IDT met with patient, sister and ABENA for Team meeting. Discussed patient's progress in PT/OT/SN. Educated to [place] CM insurance with NRD 02/07 and continued stay is not guaranteed with each review. SW inquired if pt and family still are planning on home at DC, to assist with DC planning needs. Pt stated she has not discussed this with her family yet or what other options there would be. SW suggested pt and family have that discussion now with information from the team on LOF and progress. Educated to SNF option, and the insurance precert process, that could deny or approve that stay. Educated to paying OOP for SNF and therapy, if insurance denies. Sister inquired about paying OOP for RU. SW confirmed and provided pricing for about $1587/day compared to SNF $300-400/day, not including therapy or a la carte medical costs. SW explained if pt would DC to the community, IDT is recommending a milagro lift, custom/power w/c, standard reclining w/c, and skilled HHC. SW explained this worker will assist with either plan, after pt/family makes decision. Pt/family expressed understanding. Provided pt with this worker's contact information. Will ReTeam weekly. SW will continue to follow. Jacqueline eJnnings MSW JOB SUPERINTENDENT
[2025-02-06 14:00] VITALS: BP 115/53; PULSE 68
[2025-02-06] MEDS: Jantoven 2 MG Tablet PO (15:53)
[2025-02-06] MEDS: Warfarin (BKC) 3 MG Tablet PO (15:54)
[2025-02-06 18:00] VITALS: BP 144/63; PULSE 66; RESP 16; TEMP 36.6; O2SAT 98
[2025-02-06 20:39] VITALS: BP 107/57; PULSE 67; RESP 16; TEMP 37.1; O2SAT 97
[2025-02-07 05:33] VITALS: BP 109/62; PULSE 69; RESP 18; TEMP 36.9; O2SAT 95; BMI 27.8
[2025-02-07] MEDS: tiZANidine HCl 2 MG Tablet PO ×2 (06:10→21:56)
[2025-02-07] MEDS: Midodrine HCl 5 MG Tablet 10 MG PO ×3 (06:10→21:56)
[2025-02-07 08:52] LABS: International Normalized Ratio 2.4; Prothrombin Time (Protime)PT. 26.7 SECONDS (11.7-14.9)
--- NOTE | 2025-02-07 10:13 | PN_ITS ---
Subjective Subjective Afebrile Vital signs stable. No high blood pressures. Maintaining appropriate oxygen saturation on room air Having regular bowel movements that are soft. Remains incontinent of stool. INR today is 2.4. She has 5-10 WBCs on her UA but she has been afebrile. Urine culture has grown Citrobacter freundii and Pseudomonas aeruginosa. The Pseudomonas is sensitive to cefepime, Fluoroquinolones, meropenem and Zosyn. Denies PIRES, vertigo, CP, SOB, palpitations, N/V and abd pain. EKG today with a QT of 456 which is high normal. QTc is 478. D/W pharm D. Cipro and Amiodarone together have low risk for Torsades so will go with Cipro. Objective Data Objective Data Vital Signs: Vital Signs Temp Pulse Resp BP Pulse Ox O2 Del Method 98.5 F 69 18 109/62 95 Room Air 02/07/25 05:33 02/07/25 05:33 02/07/25 05:33 02/07/25 05:33 02/07/25 05:33 02/07/25 05:33 Oxygen Delivery Method Room Air Weight: 162 lb 8 oz Body Mass Index (BMI) 27.8 Intake & Output: Intake and Output for Last 24 Hours 02/05/25 02/06/25 02/07/25 23:59 23:59 23:59 Intake Total 2740 / 2740 1660 / 1900 1040 / 1040 Output Total 1900 / 1900 4450 / 4450 1350 / 1350 Balance 840 / 840 -2790 / -2550 -310 / -310 Lab / Micro Data 02/03/25 06:43 02/06/25 07:01 Labs: Laboratory Results - last 24 hr 02/07/25 07:54: PT 26.7 H, INR 2.4 Micro: Microbiology 02/03/25 11:30 Urine Catheter - Valencia Urine Culture - Preliminary Gram negative cipriano Citrobacter freundii Pseudomonas aeruginosa Physical Exam Const alert, oriented x3 and no apparent distress Constitutional Narrative: Upbeat today, but, was tearful last night. Does not feel she is depressed......she is sad which is a normal response to her current situation. General Appearance: cooperative, well kempt and well developed Eyes Eyes Narrative: No discharge from the eyes and no mattering of the eyelashes. Neck full ROM, supple, no meningeal signs, thyroid normal, No nodes and no carotid bruits General: trachea midline Resp normal respiratory effort Resp Narrative: Clear to auscultation with good air exchange anterior and lateral. Posteriorly she is diminished in the bases. Not tachypneic, no conversational dyspnea. Cardio regular rate, regular rhythm and no gallops Cardio Narrative: click in the mitral listening post due to mechanical MV. Very soft systolic MM at the 2nd RICS with radiation to the LVOT. No diastolic MM appreciated. GI non-tender GI Narrative: mildly tympanic. Having regular BM's. BS's present in all quadrants. Denies pain with palpation. no CVA tenderness Narrative: Urine in the Valencia tubing is clear and pale today Bladder / Kidney Exam: catheter in place Extremity no pedal edema Extremity Narrative: no pitting edema Skin no rashes or lesions noted General Skin Exam: no breakdown Rashes: no rashes Neuro oriented x3 and CN's II-XII intact bilaterally Neuro Narrative: sleeping well. Good appetite. Denies feeling depressed. Engaged and making good eye contact. Psych cooperative and affect normal Psych Narrative: Denies feeling depressed. She also denies feeling anxious. Appearance: appropriate Attitude: engaged Activity / Motor Behavior: appropriate eye contact Speech: normal speech Assessment & Plan Assessment/Plan (1) Physical debility: (2) Spinal cord injury at T1-T6 level: (3) H/O laminectomy: (4) Paraplegia following spinal cord injury: (5) Urine retention: (6) Neurogenic dysfunction of the urinary bladder: (7) UTI (urinary tract infection): QUALIFIERS: Urinary tract infection type: acute cystitis H ematuria presence: without hematuria Qualified Code(s): N30.00 - Acute cystitis without hematuria PLAN: More likely than not related to neurogenic bladder/Valencia catheter. (8) Autonomic orthostatic hypotension: (9) Dehydration: (10) Chronic anticoagulation: (11) History of mitral valve replacement with mechanical valve: (12) History of tricuspid valve repair: (13) Atrial flutter: QUALIFIERS: Atrial flutter type: unspecified Qualified Code(s): I 48.92 - Unspecified atrial flutter (14) History of left atrial appendage closure: (15) Subtherapeutic international normalized ratio (INR): PLAN: Plan 1. Continue therapy 2. Continue warfarin 3 mg p.o. daily 3. Start Cipro 250 mg twice daily x 10 doses 4. EKG to check QT interval now since she is taking tizanidine, amiodarone and now Cipro has been added 5. Continue to monitor PT/INR twice daily on Cipro plus warfarin 6. Decrease the tizanidine to 2 mg p.o. every 12 hours. 7. Repeat an EKG on Monday to recheck QTc. Charges/Coding Visit Charges Inpatient E&M: 93197 Subs Hosp L1
[2025-02-07 10:35] VITALS: BP 96/56; PULSE 66
--- NOTE | 2025-02-07 10:35 | EKG12_ITS ---
Test Reason : MED CHANGE Blood Pressure : */* mmHG Vent. Rate : 66 BPM Atrial Rate : 66 BPM P-R Int : 148 ms QRS Dur : 88 ms QT Int : 456 ms P-R-T Axes : 94 107 76 degrees QTcB Int : 478 ms Suspect arm lead reversal, interpretation assumes no reversal Normal sinus rhythm Possible Right ventricular hypertrophy Abnormal ECG No previous ECGs available Confirmed by FRANCISCO GROSS, MIKHAIL ([id number]), video tape editor LAZARA NAVARRO ([id number]) on 02/10/2025 11:43:26 AM Referred By: JOSSELINE FRAZIER Confirmed By: MIKHAIL SINGH MD
[2025-02-07] MEDS: Arthritis Pain Compound 60 CLICK TUBE TOPICAL ×2 (10:59→21:56)
[2025-02-07] MEDS: Pantoprazole Sodium 40 MG Tablet PO (10:59)
[2025-02-07] MEDS: Amiodarone 200 MG Tablet PO (10:59)
[2025-02-07] MEDS: Multivitamins,Therapeutic Tablet 1 TABLET PO (11:03)
[2025-02-07] MEDS: Ciprofloxacin 250 MG Tablet PO ×2 (13:15→21:56)
[2025-02-07 13:19] VITALS: BP 111/59; PULSE 68
[2025-02-07 18:00] VITALS: BP 103/60; PULSE 72; RESP 16; TEMP 36.7; O2SAT 97
[2025-02-07] MEDS: Warfarin (BKC) 3 MG Tablet PO (18:44)
[2025-02-07] MEDS: 0.9% Saline Lock 10 ML Syringe IV (18:45)
[2025-02-07 21:56] VITALS: BP 120/59; PULSE 72
[2025-02-08 06:00] VITALS: BP 99/53; PULSE 69; RESP 16; TEMP 36.5; O2SAT 96
[2025-02-08] MEDS: Midodrine HCl 5 MG Tablet 10 MG PO ×3 (06:14→21:59)
[2025-02-08] MEDS: Ciprofloxacin 250 MG Tablet PO ×2 (08:21→21:59)
[2025-02-08] MEDS: Arthritis Pain Compound 60 CLICK TUBE TOPICAL (08:21)
[2025-02-08] MEDS: Polyethylene Glycol 3350 17 GM PACKET PO (08:22)
[2025-02-08] MEDS: Ergocalciferol 1.25 MG (50, 000 UNIT) Capsule PO (08:22)
[2025-02-08] MEDS: tiZANidine HCl 2 MG Tablet PO ×2 (08:23→22:00)
[2025-02-08] MEDS: Pantoprazole Sodium 40 MG Tablet PO (08:23)
[2025-02-08] MEDS: Amiodarone 200 MG Tablet PO (08:24)
[2025-02-08 08:38] LABS: International Normalized Ratio 2.2; Prothrombin Time (Protime)PT. 24.7 SECONDS (11.7-14.9)
[2025-02-08] MEDS: Multivitamins,Therapeutic Tablet 1 TABLET PO (09:38)
[2025-02-08 10:00] VITALS: BP 99/54; PULSE 64
[2025-02-08 14:00] VITALS: BP 105/54; PULSE 67
[2025-02-08] MEDS: 0.9% Saline Lock 10 ML Syringe IV ×2 (16:29→22:01)
[2025-02-08 18:00] VITALS: BP 123/59; PULSE 67; RESP 16; TEMP 36.6; O2SAT 96
[2025-02-08 21:54] VITALS: BP 96/49; PULSE 72; RESP 18
[2025-02-09 06:00] VITALS: BP 120/57; PULSE 63; RESP 14; TEMP 36.9; O2SAT 96
[2025-02-09] MEDS: Midodrine HCl 5 MG Tablet 10 MG PO ×3 (07:29→21:46)
--- NOTE | 2025-02-09 08:00 | EKG12_ITS ---
Test Reason : MED CHANGE Blood Pressure : */* mmHG Vent. Rate : 63 BPM Atrial Rate : 63 BPM P-R Int : 164 ms QRS Dur : 92 ms QT Int : 444 ms P-R-T Axes : 77 86 62 degrees QTcB Int : 454 ms Normal sinus rhythm Low voltage QRS Incomplete right bundle branch block Borderline ECG When compared with ECG of 07-Feb-2025 12:08, MANUAL COMPARISON REQUIRED DATA IS UNCONFIRMED Confirmed by Osvaldo Torres ([id number]), video tape editor NEYMAR NORIEGA ([id number]) on 02/13/2025 10:02:37 AM Referred By: Confirmed By: Osvaldo Torres
[2025-02-09] MEDS: Arthritis Pain Compound 60 CLICK TUBE TOPICAL ×2 (08:04→21:45)
[2025-02-09] MEDS: Amiodarone 200 MG Tablet PO (08:04)
[2025-02-09] MEDS: tiZANidine HCl 2 MG Tablet PO ×2 (08:04→21:46)
[2025-02-09] MEDS: Ciprofloxacin 250 MG Tablet PO ×2 (08:04→21:45)
[2025-02-09] MEDS: Pantoprazole Sodium 40 MG Tablet PO (08:05)
[2025-02-09] MEDS: Polyethylene Glycol 3350 17 GM PACKET PO (08:05)
[2025-02-09] MEDS: Multivitamins,Therapeutic Tablet 1 TABLET PO (08:05)
[2025-02-09 08:15] LABS: International Normalized Ratio 2.8
[2025-02-09 10:00] VITALS: BP 120/52; PULSE 64
[2025-02-09] MEDS: 0.9% Saline Lock 10 ML Syringe IV (16:43)
[2025-02-09 17:46] VITALS: BP 108/58; PULSE 68; RESP 16; TEMP 37.2; O2SAT 98
[2025-02-09 20:10] VITALS: BP 106/57; PULSE 68; RESP 15; TEMP 37.3; O2SAT 95
[2025-02-10 05:49] LABS: International Normalized Ratio 2.8; Prothrombin Time (Protime)PT. 29.8 SECONDS (11.7-14.9)
[2025-02-10 06:10] VITALS: BP 112/56; PULSE 63; RESP 16; TEMP 36.7; O2SAT 97
[2025-02-10] MEDS: Midodrine HCl 5 MG Tablet 10 MG PO ×3 (06:23→16:38)
[2025-02-10] MEDS: Arthritis Pain Compound 60 CLICK TUBE TOPICAL ×2 (08:03→21:34)
[2025-02-10] MEDS: Polyethylene Glycol 3350 17 GM PACKET PO (08:04)
[2025-02-10] MEDS: Multivitamins,Therapeutic Tablet 1 TABLET PO (08:04)
[2025-02-10] MEDS: Ciprofloxacin 250 MG Tablet PO ×2 (08:04→21:34)
[2025-02-10] MEDS: Pantoprazole Sodium 40 MG Tablet PO (08:04)
[2025-02-10] MEDS: Amiodarone 200 MG Tablet PO (08:04)
[2025-02-10] MEDS: tiZANidine HCl 2 MG Tablet PO ×2 (08:04→21:34)
[2025-02-10 09:25] VITALS: BP 83/74; PULSE 60
--- NOTE | 2025-02-10 11:07 | PCM.PROGNOTE ---
Subjective Subjective Day #47 of ciprofloxacin for cystitis Afebrile VSS -blood pressure this morning at 6:00 was 112/56. At 930 it was 83/74 and at 10 it was 83/39. Heart rate over the past 3 days has ranged from 60-72. when I am seeing her at 1100 she has no lightheadedness and she has been up in the chair for at least 30 minutes. Maintaining appropriate oxygen saturation on RA Oral intake - FOOD good FLUIDS good Urine in the Valencia bag and tubing is pale yellow and clear Last bowel movement was 02/08/2025 Discussed with nursing - no problems that need addressed Reviewed the THERAPY notes Medication list reviewed. Has been getting Midodrine at 7:30 AM, 2 PM and at bedtime? Final on the urine culture is 2 different strains of Pseudomonas aeruginosa and also Citrobacter Freundii. All 3 organisms are pansensitive. I saw her in the therapy room and she was up in the WC. Denies lightheadedness. Still with some pain in the trapezius muscles and shoulders......likely due to strain from using her UE's to reposition herself and transfer. She is also having some burning in her thighs.......not painful but, she is aware of that sensation. Faizan cephalgia, SOB, cough, N/V, palpitations. She also tells me that sometimes when her legs are moved she feels a tightness in the abd. INR today is 2.8 and stable on 4 mg of warfarin daily. EKG yesterday showed a QT interval of 444 and a QTc of 454 which is normal. There is an incomplete right bundle branch block which was present on the last EKG. No ST depression or ST elevation. Objective Data Objective Data Vital Signs: Vital Signs Temp Pulse Resp BP Pulse Ox O2 Del Method 98.0 F 66 16 83/39 L 97 Room Air 02/10/25 06:10 02/10/25 10:00 02/10/25 06:10 02/10/25 10:00 02/10/25 06:10 02/10/25 06:10 Oxygen Delivery Method Room Air Weight: 162 lb 8 oz Body Mass Index (BMI) 27.8 Intake & Output: Intake and Output for Last 24 Hours 02/08/25 02/09/25 02/10/25 23:59 23:59 23:59 Intake Total 1800 / 1800 1300 / 1300 440 / 440 Output Total 3650 / 3650 2150 / 2150 925 / 925 Balance -1850 / -1850 -850 / -850 -485 / -485 Lab / Micro Data 02/03/25 06:43 02/06/25 07:01 Labs: Laboratory Results - last 24 hr 02/10/25 05:30: PT 29.8 H, INR 2.8 Micro: Microbiology 02/03/25 11:30 Urine Catheter - Valencia Urine Culture - Final Citrobacter freundii Pseudomonas aeruginosa Physical Exam Const alert, oriented x3 and no apparent distress General Appearance: cooperative Neck Neck Narrative: tightness of the Trapezius ridges, L>R. Neck is supple. Resp clear to auscultation bilaterally Resp Narrative: Using IS and PEP Cardio regular rate, regular rhythm and no gallops GI normal to inspection, nondistended, normoactive bowel sounds and soft to palpation GI Narrative: No guarding with palpation. Extremity no calf tenderness General Extremity: Negative for edema Skin Rashes: no rashes Wound Narrative: The posterior thoracic incision is intact. [place] have been removed. There is no dehiscence, no geraldo-incisional erythema, no discharge from the incision and no pain with palpation around the incision. Neuro CN's II-XII intact bilaterally Neuro Narrative: She now has sensation to pinprick at just below the nipple line. She had some sensation to touch on the R side of the abd. She also has sensation in the BL hips with compression of the joint. No sensation in the ankles. When I compress the knee joints she feels it in the hips and lower abd. Psych thought process normal, cooperative, affect normal and denies suicidal ideation Psych Narrative: Sleeping well and eating well. Normal speech. Appearance: appropriate Attitude: No agitated Activity / Motor Behavior: Negative for restless Assessment & Plan Assessment/Plan (1) Physical debility: (2) Spinal cord injury at T1-T6 level: (3) H/O laminectomy: (4) Paraplegia following spinal cord injury: (5) Urine retention: (6) Neurogenic dysfunction of the urinary bladder: (7) UTI (urinary tract infection): QUALIFIERS: Urinary tract infection type: acute cystitis Hematuria presence: without hematuria Qualified Code(s): N30.00 - Acute cystitis without hematuria PLAN: UTI due to neurogenic bladder and presence of Valencia. Treating with 7 days of Cipro. QT is not prolonged. No systemic sx......this is cystitis. (8) Autonomic orthostatic hypotension: (9) Dehydration: (10) Chronic anticoagulation: (11) History of mitral valve replacement with mechanical valve: (12) History of tricuspid valve repair: (13) Atrial flutter: QUALIFIERS: Atrial flutter type: unspecified Qualified Code(s): I48.92 - Unspecified atrial flutter (14) History of left atrial appendage closure: PLAN: Plan 1. Continue therapy 2. Change the scheduled midodrine x 207 30, 1130 and 1530. On the mornings Occupational Therapy is going to do her a.m. ADLs at 0630 we will give the midodrine at 0530. 3. try a K pad to the upper trapezius muscles. 4. CBC without differential, BMP, mag and Phos in the a.m. 5. check a UA 4-5 days after the conclusion of the antibiotic. 6. Continue daily PT/INR for a few more days. Would like to maintain the INR between 2.5 and 3. Will continue vitamin K restriction. Continue warfarin 4 mg daily. INR may change when Cipro is discontinued. Charges/Coding Visit Charges Inpatient E&M: 25612 [facility] Hosp L1
--- NOTE | 2025-02-10 14:05 | CASEMGMT ---
Addendum entered by Jacqueline Jennings 02/12/25 08:54: [facility] and [facility] are the two accepting agencies. [employer] can provide milagro lift, reclining w/c and hospital bed. pt will DC home with a roach. SW to finalize plans once DC date is known. Original Note: Social Work SW spoke with pt to follow up on any discussions with family about DC. Pt stated she spoke with brother and ABENA and they agreed to take care of pt in their in-law suite. The in-law suite was built at [facility] on one floor and was used for in-law parents prior. Both are aware and can provide 24/7 care. SW to pursue DME planning for homegoing. Pt appreciative. - SW referred to [facility] for milagro lift, reclining w/c, and hospital bed. Pt will need to order other DME such as reclining shower chair. Discussed with pt pursuing a custom electric w/c as well. SW to coordinate skilled HHC. Referrals sent to several agencies d/y payor and high level of care. Will continue to follow. Jacqueline Jennings INTEGRATED MARKETING INTERN HEALTH PSYCHOLOGIST
[2025-02-10 17:30] VITALS: BP 118/58; PULSE 63; RESP 16; TEMP 36.1; O2SAT 97
[2025-02-10 21:31] VITALS: BP 105/51; PULSE 72
[2025-02-10] MEDS: Senna/Docusate Sodium 1 Tablet 2 TABLET PO (21:34)
[2025-02-10] MEDS: 0.9% Saline Lock 10 ML Syringe IV (21:48)
[2025-02-11 06:00] VITALS: BP 108/39; PULSE 63; RESP 17; TEMP 36.4; O2SAT 97
[2025-02-11 06:45] LABS: Hematocrit 35.4 % (37-47); Hemoglobin 11.5 g/dL (12.0-15.0); Mean Corp Hgb Conc 32.5 g/dL (32-36); Mean Corpuscular Hgb 31.6 pg (27.0-32.0); Mean Corpuscular Volume 97.3 fL (81-99); Mean Platelet Vol. 11.6 fl (6.2-12.0); Platelet Count 430 K/mm3 (150-450); RBC Distribution Width CV 13.7 % (11.6-14.6); RBC Distribution Width SD 49.3 fl (35.1-43.9); Red Blood Count 3.64 M/mm3 (4.2-5.4); White Blood Count 7.5 K/mm3 (4.4-11.0)
[2025-02-11 06:59] LABS: Anion Gap 14 (5-15); BUN 18 mg/dL (4-19); BUN/Creat Ratio 24.3 RATIO (10-20); Calcium,Total 9.3 mg/dL (7.6-11.0); Carbon Dioxide 22.9 mmol/L (21.0-32.0); Chloride 102 mmol/L (98-108); Creatinine, Serum 0.75 mg/dL (0.70-1.20); EST Glomerular Filtration Rate 98 (>60); Estimated Creatinine Clearance 90.22 ml/min (50-250); Glucose 93 mg/dL (70-99); Magnesium 2.1 mg/dL (1.5-2.2); Phosphorus 3.8 mg/dL (2.7-4.5); Sodium Level 139 mmol/L (133-145)
[2025-02-11] MEDS: Midodrine HCl 5 MG Tablet 10 MG PO ×3 (07:39→16:02)
[2025-02-11] MEDS: Ciprofloxacin 250 MG Tablet PO ×2 (07:39→21:43)
[2025-02-11] MEDS: Amiodarone 200 MG Tablet PO (07:39)
[2025-02-11] MEDS: Senna/Docusate Sodium 1 Tablet 2 TABLET PO ×2 (07:39→21:43)
[2025-02-11] MEDS: Multivitamins,Therapeutic Tablet 1 TABLET PO (07:40)
[2025-02-11] MEDS: Pantoprazole Sodium 40 MG Tablet PO (07:40)
[2025-02-11] MEDS: tiZANidine HCl 2 MG Tablet PO ×2 (07:40→21:43)
[2025-02-11] MEDS: Arthritis Pain Compound 60 CLICK TUBE TOPICAL ×2 (07:40→21:43)
[2025-02-11] MEDS: Polyethylene Glycol 3350 17 GM PACKET PO (07:40)
[2025-02-11 10:00] VITALS: BP 106/59; PULSE 60
--- NOTE | 2025-02-11 10:22 | PN_ITS ---
Subjective Subjective Afebrile VSS -blood pressure this a.m. was 108/39. Heart rate is within normal limits. She denies lightheadedness. Maintaining appropriate oxygen saturation on RA-95 to 98% Oral intake - FOOD good FLUIDS good. Fluid balance has been consistently negative however I suspect we are not capturing all she is drinking because therapy and other people give her fluids that are being measured. Weight is actually increased since admission. Had a BM yesterday. Discussed with nursing - no problems that need addressed Reviewed the THERAPY notes Medication list reviewed. All lab from today was personally reviewed. Hemoglobin is stable 11.5. The white blood cell count is normal at 7.5 and platelets are also normal. Sodium and potassium are within normal limits. The BUN is 18 and the creatinine is stable at 0.75. The BUN/creatinine ratio is 24.3. Phosphorus and magnesium are both within normal limits. INR today is 3.2. Cipro will finish after the last dose tomorrow. Denies lightheadedness, cephalgia, CP, SOB, cough, N/V/abd pain. sleeping well at night. Good appetite. + attitude Objective Data Objective Data Vital Signs: Vital Signs Temp Pulse Resp BP Pulse Ox O2 Del Method 97.5 F L 63 17 108/39 L 97 Room Air 02/11/25 06:00 02/11/25 06:00 02/11/25 06:00 02/11/25 06:00 02/11/25 06:00 02/11/25 06:00 Oxygen Delivery Method Room Air Weight: 162 lb 8 oz Body Mass Index (BMI) 27.8 Intake & Output: Intake and Output for Last 24 Hours 02/09/25 02/10/25 02/11/25 23:59 23:59 23:59 Intake Total 1300 / 1300 1560 / 1560 60 / 60 Output Total 2150 / 2150 2450 / 2450 325 / 325 Balance -850 / -850 -890 / -890 -265 / -265 Lab / Micro Data 02/11/25 05:36 02/11/25 05:36 Labs: Laboratory Results - last 24 hr 02/11/25 05:36: WBC 7.5, RBC 3.64 L, Hgb 11.5 L, Hct 35.4 L, MCV 97.3, MCH 31.6, MCHC 32.5, RDW Std Deviation 49.3 H, RDW Coeff of Hans 13.7, Plt Count 430, MPV 11.6, Sodium 139, Potassium 4.0, Chloride 102, Carbon Dioxide 22.9, Anion Gap 14, BUN 18, Creatinine 0.75, Estim Creat Clear Calc 90.22, Est GFR (MDRD) Non-Af 98, BUN/Creatinine Ratio 24.3 H, Glucose 93, Calcium 9.3, Phosphorus 3.8, Magnesium 2.1 Micro: Microbiology 02/03/25 11:30 Urine Catheter - Valencia Urine Culture - Final Citrobacter freundii Pseudomonas aeruginosa Physical Exam Const alert, oriented x3 and no apparent distress General Appearance: cooperative HEENT HEENT Narrative: MM are dry. No thrush. Denies mouth pain and painful swallowing. Resp clear to auscultation bilaterally Cardio regular rate, regular rhythm and no gallops GI normal to inspection, nondistended, normoactive bowel sounds and soft to palpation GI Narrative: No guarding with palpation. Urine in the Valencia bag and the tubing is pale yellow and clear. No sediment. Extremity no calf tenderness General Extremity: Negative for edema Skin Rashes: no rashes Wound Narrative: The posterior thoracic incision is intact. [place] have been removed. There is no dehiscence, no geraldo-incisional erythema, no discharge from the incision and no pain with palpation around the incision. Neuro CN's II-XII intact bilaterally Neuro Narrative: She now has sensation to pinprick at just below the nipple line. She had some sensation to touch on the R side of the abd. She also has sensation in the BL hips with compression of the joint. No sensation in the ankles. When I compress the knee joints she feels it in the hips and lower abd. Psych thought process normal, cooperative and affect normal Psych Narrative: Sleeping well and eating well. Normal speech. Assessment & Plan Assessment/Plan (1) Physical debility: (2) Spinal cord injury at T1-T6 level: (3) H/O laminectomy: (4) Paraplegia following spinal cord injury: (5) Urine retention: (6) Neurogenic dysfunction of the urinary bladder: (7) UTI (urinary tract infection): QUALIFIERS: Urinary tract infection type: acute cystitis H ematuria presence: without hematuria Qualified Code(s): N30.00 - Acute cystitis without hematuria (8) Autonomic orthostatic hypotension: (9) Chronic anticoagulation: (10) History of mitral valve replacement with mechanical valve: (11) History of tricuspid valve repair: (12) Atrial flutter: QUALIFIERS: Atrial flutter type: unspecified Qualified Code(s): I 48.92 - Unspecified atrial flutter (13) History of left atrial appendage closure: PLAN: Plan 1. Continue therapy 2. Give only 1 mg of Warfarin today. Decrease the daily dose to 3 mg daily starting 02/12/25. Check a PT/INR daily for the next 4 days. May need to adjust the dose of the Warfarin after Cipro is discontinued. Keep the INR between 2.5 and 3. 3. Continue Midodrine 10 mg TID. No lightheadedness today. 4. Voiding trial prior to DC....suspect she will continue to need a Valencia for neurogenic bladder. Still incontinent of stool.......can not feel when she is having a BM. The patient has a mobility limitation that cannot be sufficiently resolved by using a cane or walker. Use of a w/c will improve the participation in ADLs on a regular basis, in the home. Unable to walk at all. Confined to and she has severe orthostatic hypotension. The WC should be able to recline and she should be able to elevate the legs. Also will need anti-tippers. The patient requires a hospital bed due to needing frequent changes in position, to alleviate pain and to prevent ongoing pressure areas that is not feasible in an ordinary bed. Related to Dx of spinal cord injury resulting in paraplegia. The transfer between bed and a chair or commode requires the assistance of more than one person and without use of a lift, the patient would be bed-confined. Charges/Coding Visit Charges Inpatient E&M: 95445 Subs Hosp L1
[2025-02-11 11:27] LABS: International Normalized Ratio 3.2; Prothrombin Time (Protime)PT. 33.3 SECONDS (11.7-14.9)
[2025-02-11 11:28] VITALS: BMI 27.4
[2025-02-11 17:23] VITALS: BP 112/58; PULSE 58; RESP 16; TEMP 36.5; O2SAT 96
[2025-02-11] MEDS: 0.9% Saline Lock 10 ML Syringe IV (21:48)
[2025-02-11 22:00] VITALS: PULSE 58; RESP 16; O2SAT 96
[2025-02-12 05:25] VITALS: BP 87/44; PULSE 63
[2025-02-12] MEDS: Midodrine HCl 5 MG Tablet 10 MG PO ×3 (05:28→15:46)
[2025-02-12 06:25] VITALS: BP 125/65; PULSE 63; RESP 13; TEMP 37.1; O2SAT 96
[2025-02-12 06:36] LABS: International Normalized Ratio 3.2; Prothrombin Time (Protime)PT. 33.5 SECONDS (11.7-14.9)
[2025-02-12 07:01] VITALS: BP 73/46; PULSE 60
--- NOTE | 2025-02-12 07:04 | NURSING ---
07:00 Midodrine given at 05:30 per S request when pt is to have OT ADLs. BP rechecked before OT @ 06:30. BP- 125/65 & HR 63. Upon repositioning with OT, pt felt light headed and BP taken 73/46. A cool cloth was provided and pt was repositioned back to bed.
[2025-02-12] MEDS: Polyethylene Glycol 3350 17 GM PACKET PO (08:09)
[2025-02-12] MEDS: Pantoprazole Sodium 40 MG Tablet PO (08:09)
[2025-02-12] MEDS: Multivitamins,Therapeutic Tablet 1 TABLET PO (08:09)
[2025-02-12] MEDS: Arthritis Pain Compound 60 CLICK TUBE TOPICAL ×2 (08:09→21:36)
[2025-02-12] MEDS: tiZANidine HCl 2 MG Tablet PO ×2 (08:10→21:36)
[2025-02-12] MEDS: Ciprofloxacin 250 MG Tablet PO (08:10)
[2025-02-12] MEDS: Senna/Docusate Sodium 1 Tablet 2 TABLET PO ×2 (08:10→21:36)
[2025-02-12] MEDS: Amiodarone 200 MG Tablet PO (08:10)
[2025-02-12 17:41] VITALS: BP 139/57; PULSE 60; RESP 16; TEMP 36.6; O2SAT 99
--- NOTE | 2025-02-12 17:48 | PN.REHAB_ITS ---
Subjective Subjective Patient seen, examined. She has no new complaints. She is expecting to discharge to her sister and brother in law's house. She has numbness in her bilateral lower extremities, but no pain. Objective Data Objective Data Vital Signs: Vital Signs Temp Pulse Resp BP Pulse Ox O2 Del Method 97.9 F 60 16 139/57 H 99 Room Air 02/12/25 17:41 02/12/25 17:41 02/12/25 17:41 02/12/25 17:41 02/12/25 17:41 02/12/25 17:41 Oxygen Delivery Method Room Air Weight: 72.5 kg Body Mass Index (BMI) 27.4 Intake & Output: Intake and Output for Last 24 Hours 02/10/25 02/11/25 02/12/25 23:59 23:59 23:59 Intake Total 1560 / 1560 880 / 880 1140 / 1140 Output Total 2450 / 2450 2250 / 2250 1075 / 1075 Balance -890 / -890 -1370 / -1370 65 / 65 Lab / Micro Data Attestation: I reviewed the patient's lab results. 02/11/25 05:36 02/11/25 05:36 Labs: Laboratory Results - last 24 hr 02/12/25 05:36: PT 33.5 H, INR 3.2 Micro: Microbiology 02/03/25 11:30 Urine Catheter - Valencia Urine Culture - Final Citrobacter freundii Pseudomonas aeruginosa Indicators for Scoring Admitted with or Primary Diagnosis of CVA/Stroke: No Hx of CVA/Stroke: No Physical Exam Const alert General Appearance: cooperative HEENT normocephalic Eyes PERRL and EOMs intact bilaterally Neck supple, no JVD and no carotid bruits Resp normal respiratory effort, normal air movement and clear to auscultation bilaterally Cardio regular rate and regular rhythm GI normal to inspection, nondistended, normoactive bowel sounds, non-tender and non-distended Extremity normal capillary refill General Extremity: Negative for edema Skin no rashes or lesions noted General Skin Exam: no breakdown Neuro Neuro Narrative: Paraplegia. Psych affect normal Appearance: appropriate Assessment & Plan Assessment/Plan (1) Debility: (2) Spinal cord injury at T1-T6 level: (3) Orthostatic hypotension: (4) Constipation: QUALIFIERS: Constipation type: other constipation type Qualified Code(s): K59.09 - Other constipation (5) Urine retention: (6) UTI (urinary tract infection): QUALIFIERS: Urinary tract infection type: acute cystitis H ematuria presence: without hematuria Qualified Code(s): N30.00 - Acute cystitis without hematuria (7) Atrial flutter: QUALIFIERS: Atrial flutter type: unspecified Qualified Code(s): I 48.92 - Unspecified atrial flutter (8) History of left atrial appendage closure: (9) History of tricuspid valve repair: (10) History of mitral valve replacement with mechanical valve: (11) GERD (gastroesophageal reflux disease): (12) Muscle spasm: PLAN: Plan 49 year old female with below past medical history hospitalized for thoracic spinal cord injury 2/2 hematoma, underwent T1-T5 laminectomy, decompression, hematoma evacuation per Dr. Gentile, postoperative course complicated by hypotension, constipation, urinary tract infection, admitted to for 3 hours daily rehabilitation, strengthening, prior to disposition determination. * Debility - PT/OT. * Cognition - ST. * Pain - Tylenol 650mg q6 prn, Arthritis Pain 3 clicks topical bid. * Bowel - Miralax 17gm daily, senna/colace 2 tablets bid, MOM 30mL po x 1 prn, Dulcolax 10mg pr x 1 prn. * Atrial flutter - Amiodarone 200mg daily, INR 3.2, lower warfarin to 2.5mg daily, INR goal 2.5 to 3.0. * Orthostatic hypotension - Midodrine 10mg tid. * Nutrition - MVI 1 tablet daily. * Hypertension - Nifedipine 10mg q4 prn. * GERD - Pantoprazole 40mg daily. * Muscle spasm - Tizanidine 2mg q12.
[2025-02-12] MEDS: 0.9% Saline Lock 10 ML Syringe IV (21:54)
[2025-02-12 22:00] VITALS: PULSE 60; RESP 16; O2SAT 99
[2025-02-13 06:00] VITALS: BP 105/56; PULSE 58; RESP 16; TEMP 36.6; O2SAT 96
[2025-02-13 06:55] LABS: International Normalized Ratio 3.4; Prothrombin Time (Protime)PT. 34.7 SECONDS (11.7-14.9)
--- NOTE | 2025-02-13 08:11 | CASEMGMT ---
Social Work IDT met with patient, sister and ABENA for Team meeting. Discussed patient's progress in PT/OT/SN. Educated to [place] insurance with NRD 02/14 and continued stay is not guaranteed with each review; no advanced noticed is required. Encouraged family to begin participating in therapy sessions as the plan is for pt to return home. Informed pt/family of the two skilled [facility] agencies that accepted pt. Provided family with list of [facility] and [facility] with medicare ratings and data via [email or web address]. Informed pt/family that [facility] carries and insurance approves the DME: milagro, hospital bed, reclining w/c. The exact coverage will be determined once there is a DC date. Educated family to begin securing other DME needs such as the reclining shower chair. SW will continue to follow for DC planning assistance. Will ReTeam weekly. Jacqueline Jennings WATER WELL DRILLER ENLISTED ADVISOR
[2025-02-13] MEDS: Arthritis Pain Compound 60 CLICK TUBE TOPICAL ×2 (08:56→21:11)
[2025-02-13] MEDS: Senna/Docusate Sodium 1 Tablet 2 TABLET PO ×2 (08:56→21:11)
[2025-02-13] MEDS: Midodrine HCl 5 MG Tablet 15 MG PO ×3 (08:56→15:59)
[2025-02-13] MEDS: Amiodarone 200 MG Tablet PO (08:56)
[2025-02-13] MEDS: Polyethylene Glycol 3350 17 GM PACKET PO (08:56)
[2025-02-13] MEDS: Pantoprazole Sodium 40 MG Tablet PO (08:56)
[2025-02-13] MEDS: Multivitamins,Therapeutic Tablet 1 TABLET PO (08:57)
[2025-02-13] MEDS: tiZANidine HCl 2 MG Tablet PO ×2 (08:57→21:11)
[2025-02-13] MEDS: 0.9% Saline Lock 10 ML Syringe IV (12:03)
[2025-02-13 12:06] VITALS: BP 111/57; PULSE 62
[2025-02-13 17:48] VITALS: BP 157/52; PULSE 58; RESP 16; TEMP 36.1; O2SAT 97
[2025-02-13 21:35] VITALS: PULSE 58; RESP 16; O2SAT 97
[2025-02-14 05:51] VITALS: BP 90/45; PULSE 67; RESP 15; TEMP 36.8; O2SAT 97
[2025-02-14 06:15] VITALS: BP 90/45; PULSE 67; RESP 15; TEMP 36.8; O2SAT 97; BMI 26.9
[2025-02-14 06:16] VITALS: BMI 26.9
[2025-02-14 06:30] LABS: International Normalized Ratio 3.4; Prothrombin Time (Protime)PT. 35.2 SECONDS (11.7-14.9)
[2025-02-14] MEDS: Midodrine HCl 5 MG Tablet 15 MG PO ×3 (06:41→14:27)
[2025-02-14] MEDS: Multivitamins,Therapeutic Tablet 1 TABLET PO (08:01)
[2025-02-14] MEDS: Polyethylene Glycol 3350 17 GM PACKET PO (08:01)
[2025-02-14] MEDS: Amiodarone 200 MG Tablet PO (08:01)
[2025-02-14] MEDS: Pantoprazole Sodium 40 MG Tablet PO (08:02)
[2025-02-14] MEDS: Senna/Docusate Sodium 1 Tablet 2 TABLET PO ×2 (08:02→22:06)
[2025-02-14] MEDS: tiZANidine HCl 2 MG Tablet PO ×2 (08:03→22:06)
--- NOTE | 2025-02-14 08:11 | PN.REHAB_ITS ---
Subjective Subjective Patient seen, examined. She is eating breakfast in bed. She appears well, feels well. Slept well last night without needing Melatonin. Her midodrine was increased to 15mg tid, she thinks it may have been helpful with her orthostatic symptoms. She is a hard worker in therapy. Objective Data Objective Data Vital Signs: Vital Signs Temp Pulse Resp BP Pulse Ox O2 Del Method 98.3 F 67 15 90/45 L 97 Room Air 02/14/25 06:15 02/14/25 06:15 02/14/25 06:15 02/14/25 06:15 02/14/25 06:15 02/14/25 06:15 Oxygen Delivery Method Room Air Weight: 71.3 kg Body Mass Index (BMI) 26.9 Intake & Output: Intake and Output for Last 24 Hours 02/12/25 02/13/25 02/14/25 23:59 23:59 23:59 Intake Total 1680 / 1680 1120 / 1120 350 / 350 Output Total 1625 / 1625 1350 / 1350 550 / 550 Balance 55 / 55 -230 / -230 -200 / -200 Lab / Micro Data 02/11/25 05:36 02/11/25 05:36 Labs: Laboratory Results - last 24 hr 02/14/25 05:20: PT 35.2 H, INR 3.4 Micro: Microbiology 02/03/25 11:30 Urine Catheter - Vaelncia Urine Culture - Final Citrobacter freundii Pseudomonas aeruginosa Indicators for Scoring Admitted with or Primary Diagnosis of CVA/Stroke: No Hx of CVA/Stroke: No Physical Exam Const alert General Appearance: cooperative HEENT normocephalic Eyes PERRL and EOMs intact bilaterally Neck supple, no JVD and no carotid bruits Resp normal respiratory effort, normal air movement and clear to auscultation bilaterally Cardio regular rate and regular rhythm GI normal to inspection, nondistended, normoactive bowel sounds, non-tender and non-distended Bladder / Kidney Exam: catheter in place urethral Extremity normal capillary refill General Extremity: Negative for edema Skin no rashes or lesions noted General Skin Exam: no breakdown Neuro Neuro Narrative: Paraplegia. Psych affect normal Appearance: appropriate Assessment & Plan Assessment/Plan (1) Debility: (2) Spinal cord injury at T1-T6 level: (3) Orthostatic hypotension: (4) Constipation: QUALIFIERS: Constipation type: other constipation type Qualified Code(s): K59.09 - Other constipation (5) Urine retention: (6) UTI (urinary tract infection): QUALIFIERS: Urinary tract infection type: acute cystitis H ematuria presence: without hematuria Qualified Code(s): N30.00 - Acute cystitis without hematuria (7) Atrial flutter: QUALIFIERS: Atrial flutter type: unspecified Qualified Code(s): I 48.92 - Unspecified atrial flutter (8) History of left atrial appendage closure: (9) History of tricuspid valve repair: (10) History of mitral valve replacement with mechanical valve: (11) GERD (gastroesophageal reflux disease): (12) Muscle spasm: PLAN: Plan 49 year old female with below past medical history hospitalized for thoracic spinal cord injury 2/2 hematoma, underwent T1-T5 laminectomy, decompression, hematoma evacuation per Dr. Gentile, postoperative course complicated by hypotension, constipation, urinary tract infection, admitted to for 3 hours daily rehabilitation, strengthening, prior to disposition determination. * Debility - PT/OT. * Cognition - ST. * Pain - Tylenol 650mg q6 prn, Arthritis Pain 3 clicks topical bid. * Bowel - Miralax 17gm daily, senna/colace 2 tablets bid, MOM 30mL po x 1 prn, Dulcolax 10mg pr x 1 prn. * Atrial flutter - Amiodarone 200mg daily, INR 3.2, lower warfarin to 2.5mg daily, INR goal 2.5 to 3.0. * Orthostatic hypotension - Midodrine increased to 15mg tid. * Nutrition - MVI 1 tablet daily. * Hypertension - Nifedipine 10mg q4 prn. * GERD - Pantoprazole 40mg daily. * Muscle spasm - Tizanidine 2mg q12. * Insomnia - Melatonin 3mg qhs prn.
[2025-02-14 08:47] VITALS: PULSE 60
[2025-02-14 18:00] VITALS: BP 109/54; PULSE 62; RESP 18; TEMP 36.4; O2SAT 96
[2025-02-14 22:00] VITALS: PULSE 62; RESP 18; O2SAT 96
[2025-02-14] MEDS: Arthritis Pain Compound 60 CLICK TUBE TOPICAL (22:06)
[2025-02-14 22:22] VITALS: BP 118/58; PULSE 63
[2025-02-15 06:00] VITALS: BP 97/49; PULSE 67; RESP 15; TEMP 36.6; O2SAT 96
[2025-02-15] MEDS: Midodrine HCl 5 MG Tablet 15 MG PO ×3 (06:47→16:25)
[2025-02-15 07:21] LABS: Prothrombin Time (Protime)PT. 31.8 SECONDS (11.7-14.9)
[2025-02-15] MEDS: Ergocalciferol 1.25 MG (50, 000 UNIT) Capsule PO (10:17)
[2025-02-15] MEDS: Pantoprazole Sodium 40 MG Tablet PO (10:17)
[2025-02-15] MEDS: Multivitamins,Therapeutic Tablet 1 TABLET PO (10:17)
[2025-02-15] MEDS: tiZANidine HCl 2 MG Tablet PO ×2 (10:17→20:53)
[2025-02-15] MEDS: Amiodarone 200 MG Tablet PO (10:18)
[2025-02-15] MEDS: Arthritis Pain Compound 60 CLICK TUBE TOPICAL ×2 (10:18→20:52)
[2025-02-15] MEDS: Senna/Docusate Sodium 1 Tablet 2 TABLET PO ×2 (10:20→20:52)
[2025-02-15] MEDS: Polyethylene Glycol 3350 17 GM PACKET PO (10:20)
[2025-02-15 11:26] VITALS: BP 138/70; PULSE 78
[2025-02-15 16:27] VITALS: BP 107/63; PULSE 66; RESP 16; TEMP 36.3; O2SAT 97
--- NOTE | 2025-02-15 19:00 | NURSING ---
Dr. Lemus aware of INR and NNO's regarding coumadin to be ordered but will check INR 2x per week and order entered.
[2025-02-15 20:45] VITALS: BP 122/41; PULSE 67; RESP 18; TEMP 36.6; O2SAT 98
[2025-02-16 06:00] VITALS: BP 116/61; PULSE 64; RESP 18; TEMP 36.7; O2SAT 96
[2025-02-16] MEDS: 0.9% Saline Lock 10 ML Syringe IV ×2 (06:18→21:14)
[2025-02-16] MEDS: Amiodarone 200 MG Tablet PO (08:11)
[2025-02-16] MEDS: Pantoprazole Sodium 40 MG Tablet PO (08:11)
[2025-02-16] MEDS: Midodrine HCl 5 MG Tablet 15 MG PO ×3 (08:11→16:30)
[2025-02-16] MEDS: Senna/Docusate Sodium 1 Tablet 2 TABLET PO ×2 (08:11→21:05)
[2025-02-16] MEDS: Polyethylene Glycol 3350 17 GM PACKET PO (08:11)
[2025-02-16] MEDS: Arthritis Pain Compound 60 CLICK TUBE TOPICAL ×2 (08:12→21:05)
[2025-02-16] MEDS: tiZANidine HCl 2 MG Tablet PO ×2 (08:12→21:05)
[2025-02-16] MEDS: Multivitamins,Therapeutic Tablet 1 TABLET PO (08:12)
[2025-02-16 10:00] VITALS: O2SAT 96
[2025-02-16 16:56] VITALS: BP 114/62; PULSE 66; RESP 17; TEMP 36.8; O2SAT 98
[2025-02-16 22:38] VITALS: BP 133/63; PULSE 68
[2025-02-17 05:49] VITALS: BP 98/54; PULSE 63; RESP 16; TEMP 36.8; O2SAT 96
[2025-02-17] MEDS: Multivitamins,Therapeutic Tablet 1 TABLET PO (07:42)
[2025-02-17] MEDS: Arthritis Pain Compound 60 CLICK TUBE TOPICAL ×2 (07:42→22:17)
[2025-02-17] MEDS: tiZANidine HCl 2 MG Tablet PO ×2 (07:42→22:17)
[2025-02-17] MEDS: Amiodarone 200 MG Tablet PO (07:42)
[2025-02-17] MEDS: Pantoprazole Sodium 40 MG Tablet PO (07:42)
[2025-02-17] MEDS: Senna/Docusate Sodium 1 Tablet 2 TABLET PO (07:42)
[2025-02-17] MEDS: Midodrine HCl 5 MG Tablet 15 MG PO ×3 (07:42→15:09)
--- NOTE | 2025-02-17 07:44 | PN.REHAB_ITS ---
Subjective Subjective Patient seen, examined. She had a good weekend, she feels her dizziness episodes are much better. She feels she is progressing with therapy. Objective Data Objective Data Vital Signs: Vital Signs Temp Pulse Resp BP Pulse Ox O2 Del Method 98.3 F 63 16 98/54 L 96 Room Air 02/17/25 05:49 02/17/25 05:49 02/17/25 05:49 02/17/25 05:49 02/17/25 05:49 02/17/25 05:49 Oxygen Delivery Method Room Air Weight: 71.3 kg Body Mass Index (BMI) 26.9 Intake & Output: Intake and Output for Last 24 Hours 02/15/25 02/16/25 02/17/25 23:59 23:59 23:59 Intake Total 2580 / 2580 1170 / 1170 Output Total 1800 / 1800 2350 / 2350 300 / 300 Balance 780 / 780 -1180 / -1180 -300 / -300 Lab / Micro Data 02/11/25 05:36 02/11/25 05:36 Micro: Microbiology 02/03/25 11:30 Urine Catheter - [place] Urine Culture - Final Citrobacter freundii Pseudomonas aeruginosa Indicators for Scoring Admitted with or Primary Diagnosis of CVA/Stroke: No Hx of CVA/Stroke: No Physical Exam Const alert General Appearance: cooperative HEENT normocephalic Eyes PERRL and EOMs intact bilaterally Neck supple, no JVD and no carotid bruits Resp normal respiratory effort, normal air movement and clear to auscultation bilaterally Cardio regular rate and regular rhythm GI normal to inspection, nondistended, normoactive bowel sounds, non-tender and non-distended Bladder / Kidney Exam: catheter in place urethral Extremity normal capillary refill General Extremity: Negative for edema Skin no rashes or lesions noted General Skin Exam: no breakdown Neuro Neuro Narrative: Paraplegia. Psych affect normal Appearance: appropriate Assessment & Plan Assessment/Plan (1) Debility: (2) Spinal cord injury at T1-T6 level: (3) Orthostatic hypotension: (4) Constipation: QUALIFIERS: Constipation type: other constipation type Qualified Code(s): K59.09 - Other constipation (5) Urine retention: (6) UTI (urinary tract infection): QUALIFIERS: Urinary tract infection type: acute cystitis H ematuria presence: without hematuria Qualified Code(s): N30.00 - Acute cystitis without hematuria (7) Atrial flutter: QUALIFIERS: Atrial flutter type: unspecified Qualified Code(s): I 48.92 - Unspecified atrial flutter (8) History of left atrial appendage closure: (9) History of tricuspid valve repair: (10) History of mitral valve replacement with mechanical valve: (11) GERD (gastroesophageal reflux disease): (12) Muscle spasm: PLAN: Plan 49 year old female with below past medical history hospitalized for thoracic spinal cord injury 2/2 hematoma, underwent T1-T5 laminectomy, decompression, hematoma evacuation per Dr. Gentile, postoperative course complicated by hypotension, constipation, urinary tract infection, admitted to for 3 hours daily rehabilitation, strengthening, prior to disposition determination. * Debility - PT/OT. * Cognition - ST. * Pain - Tylenol 650mg q6 prn, Arthritis Pain 3 clicks topical bid. * Bowel - Miralax 17gm daily, senna/colace 2 tablets bid, MOM 30mL po x 1 prn, Dulcolax 10mg pr x 1 prn. * Atrial flutter - Amiodarone 200mg daily, INR 3.2, lower warfarin to 2.5mg daily, INR goal 2.5 to 3.0. * Orthostatic hypotension - Midodrine increased to 15mg tid. * Nutrition - MVI 1 tablet daily. * Hypertension - Nifedipine 10mg q4 prn, check blood pressure at bedtime. * GERD - Pantoprazole 40mg daily. * Muscle spasm - Tizanidine 2mg q12. * Insomnia - Melatonin 3mg qhs prn.
[2025-02-17 09:15] LABS: International Normalized Ratio 1.9; Prothrombin Time (Protime)PT. 22.4 SECONDS (11.7-14.9)
[2025-02-17 18:00] VITALS: BP 109/56; PULSE 58; RESP 16; TEMP 36.4; O2SAT 97
[2025-02-17 22:00] VITALS: BP 120/58; PULSE 69; RESP 16; O2SAT 97
[2025-02-18 06:07] VITALS: BP 102/53; PULSE 67; RESP 16; TEMP 36.4; O2SAT 97
[2025-02-18] MEDS: 0.9% Saline Lock 10 ML Syringe IV ×2 (06:12→21:28)
[2025-02-18] MEDS: Midodrine HCl 5 MG Tablet 15 MG PO ×3 (06:40→15:02)
[2025-02-18] MEDS: Senna/Docusate Sodium 1 Tablet 2 TABLET PO ×2 (08:04→21:28)
[2025-02-18] MEDS: Arthritis Pain Compound 60 CLICK TUBE TOPICAL ×2 (08:04→21:28)
[2025-02-18] MEDS: Multivitamins,Therapeutic Tablet 1 TABLET PO (08:05)
[2025-02-18] MEDS: Amiodarone 200 MG Tablet PO (08:05)
[2025-02-18] MEDS: Pantoprazole Sodium 40 MG Tablet PO (08:05)
[2025-02-18] MEDS: tiZANidine HCl 2 MG Tablet PO ×2 (08:06→21:28)
--- NOTE | 2025-02-18 08:32 | PN.REHAB_ITS ---
Subjective Subjective Patient seen, examined. Patient had some transient nausea yesterday morning, resolved quickly, no nausea today, no new complaints. Objective Data Objective Data Vital Signs: Vital Signs Temp Pulse Resp BP Pulse Ox O2 Del Method 97.5 F L 67 16 102/53 L 97 Room Air 02/18/25 06:07 02/18/25 06:07 02/18/25 06:07 02/18/25 06:07 02/18/25 06:07 02/18/25 06:07 Oxygen Delivery Method Room Air Weight: 71.3 kg Body Mass Index (BMI) 26.9 Intake & Output: Intake and Output for Last 24 Hours 02/16/25 02/17/25 02/18/25 23:59 23:59 23:59 Intake Total 1170 / 1170 1500 / 1500 600 / 600 Output Total 2350 / 2350 1850 / 1850 Balance -1180 / -1180 -350 / -350 600 / 600 Lab / Micro Data 02/11/25 05:36 02/11/25 05:36 Labs: Laboratory Results - last 24 hr 02/17/25 07:00: PT 22.4 H, INR 1.9 Micro: Microbiology 02/03/25 11:30 Urine Catheter - [place] Urine Culture - Final Citrobacter freundii Pseudomonas aeruginosa Indicators for Scoring Admitted with or Primary Diagnosis of CVA/Stroke: No Hx of CVA/Stroke: No Physical Exam Const alert General Appearance: cooperative HEENT normocephalic Eyes PERRL and EOMs intact bilaterally Neck supple, no JVD and no carotid bruits Resp normal respiratory effort, normal air movement and clear to auscultation bilaterally Cardio regular rate and regular rhythm GI normal to inspection, nondistended, normoactive bowel sounds, non-tender and non-distended Bladder / Kidney Exam: catheter in place urethral Extremity normal capillary refill General Extremity: Negative for edema Skin no rashes or lesions noted General Skin Exam: no breakdown Neuro Neuro Narrative: Paraplegia. Psych affect normal Appearance: appropriate Assessment & Plan Assessment/Plan (1) Debility: (2) Spinal cord injury at T1-T6 level: (3) Orthostatic hypotension: (4) Constipation: QUALIFIERS: Constipation type: other constipation type Qualified Code(s): K59.09 - Other constipation (5) Urine retention: (6) UTI (urinary tract infection): QUALIFIERS: Urinary tract infection type: acute cystitis H ematuria presence: without hematuria Qualified Code(s): N30.00 - Acute cystitis without hematuria (7) Atrial flutter: QUALIFIERS: Atrial flutter type: unspecified Qualified Code(s): I 48.92 - Unspecified atrial flutter (8) History of left atrial appendage closure: (9) History of tricuspid valve repair: (10) History of mitral valve replacement with mechanical valve: (11) GERD (gastroesophageal reflux disease): (12) Muscle spasm: PLAN: Plan 49 year old female with below past medical history hospitalized for thoracic spinal cord injury 2/2 hematoma, underwent T1-T5 laminectomy, decompression, hematoma evacuation per Dr. Gentile, postoperative course complicated by hypotension, constipation, urinary tract infection, admitted to for 3 hours daily rehabilitation, strengthening, prior to disposition determination. * Debility - PT/OT. * Cognition - ST. * Pain - Tylenol 650mg q6 prn, Arthritis Pain 3 clicks topical bid. * Bowel - Miralax 17gm daily, senna/colace 2 tablets bid, MOM 30mL po x 1 prn, Dulcolax 10mg pr x 1 prn. * Atrial flutter - Amiodarone 200mg daily, INR 3.2, lower warfarin to 2.5mg daily, INR goal 2.5 to 3.0. * Orthostatic hypotension - Midodrine increased to 15mg tid. * Nutrition - MVI 1 tablet daily. * Hypertension - Nifedipine 10mg q4 prn, check blood pressure at bedtime. * GERD - Pantoprazole 40mg daily. * Muscle spasm - Tizanidine 2mg q12. * Insomnia - Melatonin 3mg qhs prn.
[2025-02-18 18:00] VITALS: BP 128/53; PULSE 58; RESP 16; TEMP 36.4
[2025-02-18 21:00] VITALS: PULSE 63; RESP 16; O2SAT 96
[2025-02-18 21:43] VITALS: BP 87/50; PULSE 63
[2025-02-19] MEDS: Midodrine HCl 5 MG Tablet 15 MG PO ×3 (05:26→16:15)
[2025-02-19 05:36] VITALS: BP 93/44; PULSE 63; RESP 15; TEMP 36.7; O2SAT 97
[2025-02-19] MEDS: Arthritis Pain Compound 60 CLICK TUBE TOPICAL ×2 (08:09→23:06)
[2025-02-19] MEDS: Senna/Docusate Sodium 1 Tablet 2 TABLET PO ×2 (08:09→21:23)
[2025-02-19] MEDS: Amiodarone 200 MG Tablet PO (08:10)
[2025-02-19] MEDS: Pantoprazole Sodium 40 MG Tablet PO (08:10)
[2025-02-19] MEDS: Multivitamins,Therapeutic Tablet 1 TABLET PO (08:10)
[2025-02-19] MEDS: tiZANidine HCl 2 MG Tablet PO ×2 (08:10→21:24)
[2025-02-19] MEDS: 0.9% Saline Lock 10 ML Syringe IV ×2 (08:11→21:26)
--- NOTE | 2025-02-19 08:18 | PN.REHAB_ITS ---
Subjective Subjective Patient seen, examined. She had an episode of lightheadedness in shower today, but it was not severe. She has no new complaints. Objective Data Objective Data Vital Signs: Vital Signs Temp Pulse Resp BP Pulse Ox O2 Del Method 98.0 F 63 15 93/44 L 97 Room Air 02/19/25 05:36 02/19/25 05:36 02/19/25 05:36 02/19/25 05:36 02/19/25 05:36 02/18/25 21:00 Oxygen Delivery Method Room Air Weight: 71.3 kg Body Mass Index (BMI) 26.9 Intake & Output: Intake and Output for Last 24 Hours 02/17/25 02/18/25 02/19/25 23:59 23:59 23:59 Intake Total 1500 / 1500 2680 / 2680 800 / 800 Output Total 1850 / 1850 1200 / 1200 725 / 725 Balance -350 / -350 1480 / 1480 75 / 75 Lab / Micro Data 02/11/25 05:36 02/11/25 05:36 Micro: Microbiology 02/03/25 11:30 Urine Catheter - [place] Urine Culture - Final Citrobacter freundii Pseudomonas aeruginosa Indicators for Scoring Admitted with or Primary Diagnosis of CVA/Stroke: No Hx of CVA/Stroke: No Physical Exam Const alert General Appearance: cooperative HEENT normocephalic Eyes PERRL and EOMs intact bilaterally Neck supple, no JVD and no carotid bruits Resp normal respiratory effort, normal air movement and clear to auscultation bilaterally Cardio regular rate and regular rhythm GI normal to inspection, nondistended, normoactive bowel sounds, non-tender and non-distended Bladder / Kidney Exam: catheter in place urethral Extremity normal capillary refill General Extremity: Negative for edema Skin no rashes or lesions noted General Skin Exam: no breakdown Neuro Neuro Narrative: Paraplegia. Psych affect normal Appearance: appropriate Assessment & Plan Assessment/Plan (1) Debility: (2) Spinal cord injury at T1-T6 level: (3) Orthostatic hypotension: (4) Constipation: QUALIFIERS: Constipation type: other constipation type Qualified Code(s): K59.09 - Other constipation (5) Urine retention: (6) UTI (urinary tract infection): QUALIFIERS: Urinary tract infection type: acute cystitis H ematuria presence: without hematuria Qualified Code(s): N30.00 - Acute cystitis without hematuria (7) Atrial flutter: QUALIFIERS: Atrial flutter type: unspecified Qualified Code(s): I 48.92 - Unspecified atrial flutter (8) History of left atrial appendage closure: (9) History of tricuspid valve repair: (10) History of mitral valve replacement with mechanical valve: (11) GERD (gastroesophageal reflux disease): (12) Muscle spasm: PLAN: Plan 49 year old female with below past medical history hospitalized for thoracic spinal cord injury 2/2 hematoma, underwent T1-T5 laminectomy, decompression, hematoma evacuation per Dr. Gentile, postoperative course complicated by hypotension, constipation, urinary tract infection, admitted to for 3 hours daily rehabilitation, strengthening, prior to disposition determination. * Debility - PT/OT. * Cognition - ST. * Pain - Tylenol 650mg q6 prn, Arthritis Pain 3 clicks topical bid. * Bowel - Miralax 17gm daily, senna/colace 2 tablets bid, MOM 30mL po x 1 prn, Dulcolax 10mg pr x 1 prn. * Atrial flutter - Amiodarone 200mg daily, warfarin to 2.5mg daily, check INR tomorrow. * Orthostatic hypotension - Midodrine 15mg tid. * Nutrition - MVI 1 tablet daily. * Hypertension - Nifedipine 10mg q4 prn, check blood pressure at bedtime. * GERD - Pantoprazole 40mg daily. * Muscle spasm - Tizanidine 2mg q12. * Insomnia - Melatonin 3mg qhs prn.
[2025-02-19 11:18] VITALS: BP 100/45; PULSE 59
[2025-02-19 17:39] VITALS: BP 115/50; PULSE 75; RESP 16; TEMP 36.1; O2SAT 99
[2025-02-19 22:00] VITALS: BP 126/52; PULSE 70
[2025-02-20 05:50] VITALS: BP 113/56; PULSE 64; RESP 18; TEMP 36.3; O2SAT 97
[2025-02-20 06:56] LABS: International Normalized Ratio 1.8; Prothrombin Time (Protime)PT. 21.5 SECONDS (11.7-14.9)
[2025-02-20] MEDS: tiZANidine HCl 2 MG Tablet PO ×2 (07:40→22:31)
[2025-02-20] MEDS: Amiodarone 200 MG Tablet PO (07:40)
[2025-02-20] MEDS: Midodrine HCl 5 MG Tablet 15 MG PO ×3 (07:40→15:04)
[2025-02-20] MEDS: Pantoprazole Sodium 40 MG Tablet PO (07:40)
[2025-02-20] MEDS: Senna/Docusate Sodium 1 Tablet 2 TABLET PO ×2 (07:40→22:31)
[2025-02-20] MEDS: Arthritis Pain Compound 60 CLICK TUBE TOPICAL ×2 (07:40→22:31)
[2025-02-20] MEDS: Multivitamins,Therapeutic Tablet 1 TABLET PO (07:40)
--- NOTE | 2025-02-20 08:14 | CASEMGMT ---
Social Work IDT met with patient, sister and ABENA for Team meeting. Discussed patient's progress from PT/OT/SN/MD. Educated to [facility] insurance with [employer] 02/20 and continued stay is not guaranteed with each review. SW to send referral to [facility] to being processing needed DME: milagro, hospital bed, reclining w/c with anti-tippers. Nursing to begin bowel and bladder program and educated pt/family on roach cath care at home. Pt remains in good spirits. No issues noted. SW will continue to follow for DC planning assistance and support. Will ReTeam weekly. Jacqueline Jennings FITNESS/WELLNESS DIRECTOR POWER SHOVEL OPERATOR
--- NOTE | 2025-02-20 08:39 | PN.REHAB_ITS ---
Subjective Subjective Patient seen on Team rounds. Her sister and sister in law present today. She has no new complaints. Goals of care discussed, PT/OT talked about bowel and bladder training. Will start with Dulcolax 10mg pr qam, and due to neurogenic bladder, and inability to self cath, will maintaing roach catheter for now. She will also require a reclining wheelchair on discharge. Objective Data Objective Data Vital Signs: Vital Signs Temp Pulse Resp BP Pulse Ox O2 Del Method 97.4 F L 64 18 113/56 L 97 Room Air 02/20/25 05:50 02/20/25 05:50 02/20/25 05:50 02/20/25 05:50 02/20/25 05:50 02/20/25 05:50 Oxygen Delivery Method Room Air Weight: 71.3 kg Body Mass Index (BMI) 26.9 Intake & Output: Intake and Output for Last 24 Hours 02/18/25 02/19/25 02/20/25 23:59 23:59 23:59 Intake Total 2680 / 2680 1200 / 1650 1290 / 1290 Output Total 1200 / 1200 1275 / 1825 800 / 800 Balance 1480 / 1480 -75 / -175 490 / 490 Lab / Micro Data 02/11/25 05:36 02/11/25 05:36 Labs: Laboratory Results - last 24 hr 02/20/25 05:24: PT 21.5 H, INR 1.8 Micro: Microbiology 02/03/25 11:30 Urine Catheter - [place] Urine Culture - Final Citrobacter freundii Pseudomonas aeruginosa Indicators for Scoring Admitted with or Primary Diagnosis of CVA/Stroke: No Hx of CVA/Stroke: No Physical Exam Const alert General Appearance: cooperative HEENT normocephalic Eyes PERRL and EOMs intact bilaterally Neck supple, no JVD and no carotid bruits Resp normal respiratory effort, normal air movement and clear to auscultation bilaterally Cardio regular rate and regular rhythm GI normal to inspection, nondistended, normoactive bowel sounds, non-tender and non-distended Bladder / Kidney Exam: catheter in place urethral Extremity normal capillary refill General Extremity: Negative for edema Skin no rashes or lesions noted General Skin Exam: no breakdown Neuro Neuro Narrative: Paraplegia. Psych affect normal Appearance: appropriate Assessment & Plan Assessment/Plan (1) Debility: (2) Spinal cord injury at T1-T6 level: (3) Orthostatic hypotension: (4) Constipation: QUALIFIERS: Constipation type: other constipation type Qualified Code(s): K59.09 - Other constipation (5) Urine retention: (6) UTI (urinary tract infection): QUALIFIERS: Urinary tract infection type: acute cystitis H ematuria presence: without hematuria Qualified Code(s): N30.00 - Acute cystitis without hematuria (7) Atrial flutter: QUALIFIERS: Atrial flutter type: unspecified Qualified Code(s): I 48.92 - Unspecified atrial flutter (8) History of left atrial appendage closure: (9) History of tricuspid valve repair: (10) History of mitral valve replacement with mechanical valve: (11) GERD (gastroesophageal reflux disease): (12) Muscle spasm: PLAN: Plan 49 year old female with below past medical history hospitalized for thoracic spinal cord injury 2/2 hematoma, underwent T1-T5 laminectomy, decompression, hematoma evacuation per Dr. Gentile, postoperative course complicated by hypotension, constipation, urinary tract infection, admitted to for 3 hours daily rehabilitation, strengthening, prior to disposition determination. * Debility - PT/OT. * Cognition - ST. * Pain - Tylenol 650mg q6 prn, Arthritis Pain 3 clicks topical bid. * Bowel - Miralax 17gm daily, senna/colace 2 tablets bid, MOM 30mL po x 1 prn, Dulcolax 10mg pr x 1 prn. * Atrial flutter - Amiodarone 200mg daily, warfarin to 2.5mg daily, check INR tomorrow. * Orthostatic hypotension - Midodrine 15mg tid. * Nutrition - MVI 1 tablet daily. * Hypertension - Nifedipine 10mg q4 prn, check blood pressure at bedtime. * GERD - Pantoprazole 40mg daily. * Muscle spasm - Tizanidine 2mg q12. * Insomnia - Melatonin 3mg qhs prn. Reclining wheelchair: A) The patient has a mobility limitation that significantly impairs his/her ability to participate in one or more mobility-related activities of daily living (MRADLs) such as toileting, feeding, dressing, grooming, and bathing in customary locationis in the home. B) The patient's mobility limitation cannot be sufficiently resolved by the use of a cane or walker. C) The patient's home provides adequate access between rooms, maneuvering space, and surfaces for use of the manual wheelchair that is provided. D) Use of a manual wheelchair will significantly improve the patient's ability to participate in MRADLs and the patient will use it on a regular basis in the home. E) The patient has not expressed an unwillingness to use the wheelchair that is proved in the home. AND G) The patient has a caregiver who is available, willing, and able to provide assistance with the wheelchair.
[2025-02-20 08:55] LABS: Absolute Lymphocyte Count 0.98 X10^3/uL (0.83-4.51); Absolute Neutrophil Count 5.5 X10^3/uL (2.0-7.7); Basophil# 0.06 X10^3/uL; Basophil% 0.8 % (0-1); Eosinophil# 0.21 X10^3/uL; Eosinophils% 2.8 % (0-5); Hematocrit 35.8 % (37-47); Hemoglobin 11.6 g/dL (12.0-15.0); Lymphocyte # 0.98 X10^3/ul (0.83-4.51); Lymphocyte % 13.2 % (19-41); Mean Corp Hgb Conc 32.4 g/dL (32-36); Mean Corpuscular Volume 98.6 fL (81-99); Mean Platelet Vol. 11.9 fl (6.2-12.0); Monocyte# 0.59 X10^3/uL; NRBC Flagged by Analyzer 0 % (0-5); Neutrophil # 5.48 X10^3/uL (2.7-7.7); Platelet Count 267 K/mm3 (150-450); RBC Distribution Width CV 13.7 % (11.6-14.6); RBC Distribution Width SD 50.2 fl (35.1-43.9); Red Blood Count 3.63 M/mm3 (4.2-5.4); White Blood Count 7.4 K/mm3 (4.4-11.0)
[2025-02-20 09:37] LABS: ALB/GLOB Ratio 1.1 RATIO (0.9-2.4); AST(SGOT) 27 U/L (<=31); Alanine Aminotransfer ALT/SGPT 23 U/L (<=34); Albumin, Serum 3.5 g/dL (3.5-5.0); Alkaline Phosphatase 75 U/L (35-104); Anion Gap 11 (5-15); BUN 11 mg/dL (4-19); BUN/Creat Ratio 15.4 RATIO (10-20); Calcium,Total 9.1 mg/dL (7.6-11.0); Carbon Dioxide 23.9 mmol/L (21.0-32.0); Chloride 102 mmol/L (98-108); Creatinine, Serum 0.73 mg/dL (0.70-1.20); EST Glomerular Filtration Rate 101 (>60); Estimated Creatinine Clearance 91.26 ml/min (50-250); Globulin 3.1 g/dL (2.2-4.2); Glucose 108 mg/dL (70-99); Potassium 3.9 mmol/L (3.3-5.1); Protein, Total 6.5 g/dL (5.9-8.4); Sodium Level 137 mmol/L (133-145); Total Bilirubin 0.23 mg/dL (0.00-1.30)
[2025-02-20] MEDS: Warfarin (BKC) 3 MG Tablet PO (16:19)
[2025-02-20 18:00] VITALS: BP 110/62; PULSE 60; RESP 17; TEMP 36.6; O2SAT 95
[2025-02-20 22:00] VITALS: BP 98/56; PULSE 67
[2025-02-20] MEDS: 0.9% Saline Lock 10 ML Syringe IV (22:30)
[2025-02-21 06:00] VITALS: BP 99/42; PULSE 63; RESP 16; TEMP 36.3; O2SAT 96; BMI 26.1
[2025-02-21] MEDS: Bisacodyl 10 MG Suppository RC (06:35)
[2025-02-21] MEDS: Arthritis Pain Compound 60 CLICK TUBE TOPICAL ×2 (07:46→21:09)
[2025-02-21] MEDS: Midodrine HCl 5 MG Tablet 15 MG PO ×3 (07:46→16:38)
[2025-02-21] MEDS: Amiodarone 200 MG Tablet PO (07:47)
[2025-02-21] MEDS: Multivitamins,Therapeutic Tablet 1 TABLET PO (07:47)
[2025-02-21] MEDS: Pantoprazole Sodium 40 MG Tablet PO (07:47)
[2025-02-21] MEDS: tiZANidine HCl 2 MG Tablet PO ×2 (07:47→21:10)
[2025-02-21] MEDS: Senna/Docusate Sodium 1 Tablet 2 TABLET PO ×2 (07:47→21:10)
[2025-02-21 11:33] VITALS: BP 96/38; PULSE 61
[2025-02-21] MEDS: Warfarin (BKC) 3 MG Tablet PO (16:39)
[2025-02-21] MEDS: 0.9% Saline Lock 10 ML Syringe IV (17:03)
[2025-02-21 17:43] VITALS: BP 151/66; PULSE 63; RESP 16; TEMP 36.6; O2SAT 96
[2025-02-21 21:24] VITALS: BP 150/67; PULSE 66; RESP 18; TEMP 36.8; O2SAT 98
[2025-02-22 03:31] VITALS: BP 96/50; PULSE 67; RESP 18; TEMP 36.4; O2SAT 97
[2025-02-22] MEDS: Bisacodyl 10 MG Suppository RC (05:40)
[2025-02-22] MEDS: Multivitamins,Therapeutic Tablet 1 TABLET PO (08:17)
[2025-02-22] MEDS: Senna/Docusate Sodium 1 Tablet 2 TABLET PO ×2 (08:17→22:22)
[2025-02-22] MEDS: Pantoprazole Sodium 40 MG Tablet PO (08:17)
[2025-02-22] MEDS: Ergocalciferol 1.25 MG (50, 000 UNIT) Capsule PO (08:17)
[2025-02-22] MEDS: Amiodarone 200 MG Tablet PO (08:17)
[2025-02-22] MEDS: Midodrine HCl 5 MG Tablet 15 MG PO ×3 (08:17→16:36)
[2025-02-22] MEDS: Arthritis Pain Compound 60 CLICK TUBE TOPICAL ×2 (08:17→22:22)
[2025-02-22] MEDS: tiZANidine HCl 2 MG Tablet PO ×2 (08:18→22:22)
[2025-02-22 12:47] VITALS: BP 88/38
[2025-02-22] MEDS: 0.9% Saline Lock 10 ML Syringe IV ×2 (15:04→22:22)
[2025-02-22] MEDS: Warfarin (BKC) 3 MG Tablet PO (16:35)
[2025-02-22 17:35] VITALS: BP 126/59; PULSE 63; RESP 17; TEMP 36.6; O2SAT 97
[2025-02-22 22:21] VITALS: BP 106/54; PULSE 66
[2025-02-23] MEDS: Bisacodyl 10 MG Suppository RC (06:16)
[2025-02-23 06:18] VITALS: BP 108/60; PULSE 64; RESP 16; TEMP 36.5; O2SAT 97
[2025-02-23] MEDS: Midodrine HCl 5 MG Tablet 15 MG PO ×3 (08:00→18:00)
[2025-02-23] MEDS: Pantoprazole Sodium 40 MG Tablet PO (08:02)
[2025-02-23] MEDS: Multivitamins,Therapeutic Tablet 1 TABLET PO (08:02)
[2025-02-23] MEDS: Amiodarone 200 MG Tablet PO (08:02)
[2025-02-23] MEDS: tiZANidine HCl 2 MG Tablet PO ×2 (08:03→22:05)
[2025-02-23] MEDS: Arthritis Pain Compound 60 CLICK TUBE TOPICAL ×2 (08:03→22:04)
[2025-02-23] MEDS: Senna/Docusate Sodium 1 Tablet 2 TABLET PO ×2 (08:03→22:05)
[2025-02-23 08:55] VITALS: RESP 16
[2025-02-23 16:35] VITALS: BP 99/47; PULSE 65; RESP 16; TEMP 36.7; O2SAT 97
[2025-02-23] MEDS: Warfarin (BKC) 3 MG Tablet PO (18:01)
[2025-02-23 22:00] VITALS: BP 136/61; PULSE 69
[2025-02-23] MEDS: 0.9% Saline Lock 10 ML Syringe IV (23:20)
[2025-02-24 06:00] VITALS: BP 96/54; PULSE 67; RESP 17; TEMP 36.9; O2SAT 98
[2025-02-24] MEDS: Bisacodyl 10 MG Suppository RC (06:13)
[2025-02-24 06:22] LABS: International Normalized Ratio 2.3
[2025-02-24] MEDS: Midodrine HCl 5 MG Tablet 15 MG PO ×3 (07:56→16:03)
[2025-02-24] MEDS: Multivitamins,Therapeutic Tablet 1 TABLET PO (07:57)
[2025-02-24] MEDS: Arthritis Pain Compound 60 CLICK TUBE TOPICAL ×2 (07:57→20:50)
[2025-02-24] MEDS: Pantoprazole Sodium 40 MG Tablet PO (07:58)
[2025-02-24] MEDS: Senna/Docusate Sodium 1 Tablet 2 TABLET PO ×2 (07:58→20:49)
[2025-02-24] MEDS: Amiodarone 200 MG Tablet PO (07:58)
[2025-02-24] MEDS: tiZANidine HCl 2 MG Tablet PO ×2 (07:59→20:49)
[2025-02-24] MEDS: Warfarin (BKC) 3 MG Tablet PO (17:29)
[2025-02-24 18:00] VITALS: BP 167/64; PULSE 64; RESP 16; TEMP 36.6; O2SAT 97
[2025-02-24 22:00] VITALS: BP 139/62; PULSE 63; RESP 16; O2SAT 97
[2025-02-25 06:00] VITALS: BP 107/54; PULSE 63; RESP 15; TEMP 36.3; O2SAT 96
[2025-02-25] MEDS: Bisacodyl 10 MG Suppository RC (06:15)
[2025-02-25] MEDS: Midodrine HCl 5 MG Tablet 15 MG PO ×3 (06:30→16:48)
[2025-02-25] MEDS: Pantoprazole Sodium 40 MG Tablet PO (08:17)
[2025-02-25] MEDS: Arthritis Pain Compound 60 CLICK TUBE TOPICAL ×2 (08:17→21:21)
[2025-02-25] MEDS: Senna/Docusate Sodium 1 Tablet 2 TABLET PO ×2 (08:17→21:21)
[2025-02-25] MEDS: Multivitamins,Therapeutic Tablet 1 TABLET PO (08:18)
[2025-02-25] MEDS: tiZANidine HCl 2 MG Tablet PO ×2 (08:18→21:21)
[2025-02-25] MEDS: Amiodarone 200 MG Tablet PO (08:18)
--- NOTE | 2025-02-25 10:34 | PN_ITS ---
Subjective Subjective Afebrile VSS -blood pressures are somewhat erratic. She continues on midodrine 15 mg 3 times daily. No recent orthostatic vital signs. Maintaining appropriate oxygen saturation on RA Oral intake - FOOD good FLUIDS good Having regular soft bowel movements. Valencia remains in place for neurogenic bladder. Discussed with nursing - no problems that need addressed Reviewed the THERAPY notes Medication list reviewed. Has been started on a bowel regimen and is taking Dulcolax 10 mg suppository at 0600 daily. Denies cephalgia, vertigo, lightheadedness, chest pain, shortness of breath, cough, nausea/vomiting/abdominal pain, suprapubic pain. She is asking about the mild abd distension......I explained she is having regular BM's and I do not suspect constipation. I think the mild distension is due to loss of control of the abd muscles/laxity. This is likely not going to change and I explained this to her. She is sleeping well at night and has a good appetite. She still has a positive attitude and denies feeling depressed. We once again reviewed the signs/symptoms of anxiety/depression. Has mild anxiety with the [place]...... afraid she is going to be dropped. More comfortable with the therapists and the [place] at this time and less confident when her sister is transferring her. She is able to feel me squeeze the R second toe. She has some sensation with compression of the R knee and hip. No sensation on the left. Unable to feel light touch from the toes to just above the nipple line BL. Her sister has been coming in for training. Plan is home with family at [place]. Will need a [place]. Objective Data Objective Data Vital Signs: Vital Signs Temp Pulse Resp BP Pulse Ox O2 Del Method 97.4 F L 63 15 107/54 L 96 Room Air 02/25/25 06:00 02/25/25 06:00 02/25/25 06:00 02/25/25 06:00 02/25/25 06:00 02/25/25 06:00 Oxygen Delivery Method Room Air Weight: 152 lb 1.903 oz Body Mass Index (BMI) 26.1 Intake & Output: Intake and Output for Last 24 Hours 02/23/25 02/24/25 02/25/25 23:59 23:59 23:59 Intake Total 720 / 720 1450 / 1450 850 / 850 Output Total 1830 / 1830 1900 / 1900 450 / 450 Balance -1110 / -1110 -450 / -450 400 / 400 Lab / Micro Data 02/20/25 08:39 02/20/25 08:39 Micro: Microbiology 02/03/25 11:30 Urine Catheter - [place] Urine Culture - Final Citrobacter freundii Pseudomonas aeruginosa Physical Exam Const alert General Appearance: cooperative HEENT normocephalic Eyes PERRL and EOMs intact bilaterally Neck supple, no JVD and no carotid bruits Resp normal respiratory effort, normal air movement and clear to auscultation bilaterally Cardio regular rate and regular rhythm GI normal to inspection, nondistended, normoactive bowel sounds, non-tender and non-distended Bladder / Kidney Exam: catheter in place urethral Extremity normal capillary refill General Extremity: Negative for edema Skin no rashes or lesions noted General Skin Exam: no breakdown Neuro Neuro Narrative: Paraplegia. Psych affect normal Appearance: appropriate Assessment & Plan Assessment/Plan (1) Physical debility: (2) Spinal cord injury at T1-T6 level: (3) H/O laminectomy: (4) Paraplegia following spinal cord injury: (5) Urine retention: (6) Neurogenic dysfunction of the urinary bladder: (7) Autonomic orthostatic hypotension: (8) Chronic anticoagulation: (9) History of mitral valve replacement with mechanical valve: (10) History of tricuspid valve repair: (11) Atrial flutter: QUALIFIERS: Atrial flutter type: unspecified Qualified Code(s): I 48.92 - Unspecified atrial flutter (12) History of left atrial appendage closure: PLAN: Plan 1. Continue therapy 2. Reassess need for continued scheduled Zanaflex. D/W Alireza and will change the Zanaflex to once daily at HS and Q12H PRN muscle spasm. 3. INR was 2.3 yesterday. Due to the valve replacement recommendations are to maintain between 2.5 and 3.5. Current dose is 3 mg of warfarin daily. 4. CBC with differential, BMP and PT/INR on a.m. 5. Orthostatics today. They were negative when going from lying to sitting and the patient denied lightheadedness. No hypertension when lying down. Will continue midodrine 15 mg 3 times daily. Charges/Coding Visit Charges Inpatient E&M: 22428 Subs Hosp L1
[2025-02-25 11:26] VITALS: BP 105/49; BP 94/40; PULSE 59; PULSE 65
[2025-02-25] MEDS: Warfarin (BKC) 3 MG Tablet PO (16:48)
[2025-02-25 18:00] VITALS: BP 105/50; PULSE 60; RESP 16; TEMP 36.8; O2SAT 99
[2025-02-25 21:24] VITALS: BP 125/62; PULSE 61
[2025-02-25] MEDS: 0.9% Saline Lock 10 ML Syringe IV (21:34)
[2025-02-26] MEDS: Bisacodyl 10 MG Suppository RC (05:49)
[2025-02-26 06:00] VITALS: BP 104/53; PULSE 63; RESP 17; TEMP 36.7; O2SAT 97
[2025-02-26] MEDS: Midodrine HCl 5 MG Tablet 15 MG PO ×3 (07:37→16:06)
[2025-02-26] MEDS: Arthritis Pain Compound 60 CLICK TUBE TOPICAL ×2 (09:01→21:17)
[2025-02-26] MEDS: Amiodarone 200 MG Tablet PO (09:01)
[2025-02-26] MEDS: Multivitamins,Therapeutic Tablet 1 TABLET PO (09:01)
[2025-02-26] MEDS: Pantoprazole Sodium 40 MG Tablet PO (09:01)
[2025-02-26] MEDS: tiZANidine HCl 2 MG Tablet PO ×2 (09:01→21:17)
[2025-02-26] MEDS: Senna/Docusate Sodium 1 Tablet 2 TABLET PO ×2 (09:01→21:17)
[2025-02-26 09:04] VITALS: BP 112/57; PULSE 59
[2025-02-26 11:23] VITALS: BP 110/59; PULSE 61
[2025-02-26] MEDS: Warfarin (BKC) 3 MG Tablet PO (16:06)
[2025-02-26 18:20] VITALS: BP 120/40; PULSE 69; RESP 18; TEMP 36.9; O2SAT 99
[2025-02-26 22:00] VITALS: BP 112/57; PULSE 62; RESP 17; O2SAT 95
[2025-02-27] VITALS (7 sets, daily range): BP systolic 91–150; BP diastolic 42–61; PULSE 64–66; RESP 15–17; TEMP 36.6; O2SAT 97–99
[2025-02-27] MEDS: Bisacodyl 10 MG Suppository RC (06:22)
[2025-02-27 06:25] LABS: Absolute Lymphocyte Count 1.37 X10^3/uL (0.83-4.51); Absolute Neutrophil Count 5.3 X10^3/uL (2.0-7.7); Basophil# 0.07 X10^3/uL; Basophil% 0.9 % (0-1); Eosinophil# 0.25 X10^3/uL; Eosinophils% 3.2 % (0-5); Hematocrit 34.1 % (37-47); Hemoglobin 11.3 g/dL (12.0-15.0); Lymphocyte # 1.37 X10^3/ul (0.83-4.51); Lymphocyte % 17.6 % (19-41); Mean Corp Hgb Conc 33.1 g/dL (32-36); Mean Corpuscular Hgb 31.7 pg (27.0-32.0); Mean Corpuscular Volume 95.5 fL (81-99); Mean Platelet Vol. 12.7 fl (6.2-12.0); Monocyte# 0.68 X10^3/uL; Monocyte% 8.8 % (0-10); NRBC Flagged by Analyzer 0 % (0-5); Neutrophil # 5.29 X10^3/uL (2.7-7.7); Neutrophil % 68.1 % (47-70); Platelet Count 255 K/mm3 (150-450); RBC Distribution Width CV 13.5 % (11.6-14.6); RBC Distribution Width SD 47.8 fl (35.1-43.9); Red Blood Count 3.57 M/mm3 (4.2-5.4); White Blood Count 7.8 K/mm3 (4.4-11.0)
[2025-02-27 06:39] LABS: International Normalized Ratio 2.9; Prothrombin Time (Protime)PT. 31.3 SECONDS (11.7-14.9)
[2025-02-27 06:40] LABS: Anion Gap 9 (5-15); BUN 11 mg/dL (4-19); BUN/Creat Ratio 17.1 RATIO (10-20); Calcium,Total 9.1 mg/dL (7.6-11.0); Carbon Dioxide 24.3 mmol/L (21.0-32.0); Chloride 105 mmol/L (98-108); Creatinine, Serum 0.66 mg/dL (0.70-1.20); EST Glomerular Filtration Rate 108 (>60); Estimated Creatinine Clearance 99.43 ml/min (50-250); Glucose 90 mg/dL (70-99); Potassium 4.3 mmol/L (3.3-5.1); Sodium Level 139 mmol/L (133-145)
[2025-02-27] MEDS: Amiodarone 200 MG Tablet PO (08:09)
[2025-02-27] MEDS: Multivitamins,Therapeutic Tablet 1 TABLET PO (08:09)
[2025-02-27] MEDS: Arthritis Pain Compound 60 CLICK TUBE TOPICAL ×2 (08:09→21:19)
[2025-02-27] MEDS: Senna/Docusate Sodium 1 Tablet 2 TABLET PO ×2 (08:09→21:19)
[2025-02-27] MEDS: Pantoprazole Sodium 40 MG Tablet PO (08:09)
[2025-02-27] MEDS: Midodrine HCl 5 MG Tablet 15 MG PO ×3 (08:09→16:20)
--- NOTE | 2025-02-27 09:45 | PN_ITS ---
Subjective Subjective Afebrile VSS - Maintaining appropriate oxygen saturation on RA Oral intake - FOOD good FLUIDS good Discussed with nursing - no problems that need addressed Reviewed the THERAPY notes Medication list reviewed. All labs from this morning was personally reviewed. White blood cell count is normal at 7.8. Hemoglobin is stable at 11.3. Platelets are within normal limits. INR is therapeutic at 2.9 today. BMP is unremarkable. Creatinine is 0.66 and stable. Calcium is within normal limits. Had some lightheadedness and tunnel vision in the shower yesterday. Orthostatic were negative later in the day. Hot water from the shower may be contributing to venodilation and drop in pressure transiently. They will avoid very hot shower in the future. Will need a reclining WC with leg elevation to go home. No high BP's, even when lying flat in bed. Sleeping well at night. Good appetite. Denies pain, N/V, cephalgia. Objective Data Objective Data Vital Signs: Vital Signs Temp Pulse Resp BP Pulse Ox O2 Del Method 97.8 F 64 15 104/56 L 98 Room Air 02/27/25 06:00 02/27/25 08:11 02/27/25 06:00 02/27/25 08:11 02/27/25 06:00 02/27/25 06:00 Oxygen Delivery Method Room Air Weight: 152 lb 1.903 oz Body Mass Index (BMI) 26.1 Intake & Output: Intake and Output for Last 24 Hours 02/25/25 02/26/25 02/27/25 23:59 23:59 23:59 Intake Total 1949 1430 / 1430 370 / 370 Output Total 1949 2320 / 2320 600 / 600 Balance 0 / 0 -890 / -890 -230 / -230 Lab / Micro Data 02/27/25 05:09 02/27/25 05:09 Labs: Laboratory Results - last 24 hr 02/27/25 05:09: WBC 7.8, RBC 3.57 L, Hgb 11.3 L, Hct 34.1 L, MCV 95.5, MCH 31.7, MCHC 33.1, RDW Std Deviation 47.8 H, RDW Coeff of Hans 13.5, Plt Count 255, MPV 12.7 H, Immature Gran % (Auto) 1.400 H, Neut % (Auto) 68.1, Lymph % (Auto) 17.6 L, [place] % (Auto) 8.8, Eos % (Auto) 3.2, Baso % (Auto) 0.9, Absolute Neuts (auto) 5.3, Absolute Lymphs (auto) 1.37, Nucleated RBC % 0, PT 31.3 H, INR 2.9, Sodium 139, Potassium 4.3, Chloride 105, Carbon Dioxide 24.3, Anion Gap 9, BUN 11, C reatinine 0.66 L, Estim Creat Clear Calc 99.43, Est GFR (MDRD) Non-Af 108, BUN/Creatinine Ratio 17.1, Glucose 90, Calcium 9.1 Micro: Microbiology 02/03/25 11:30 Urine Catheter - Valencia Urine Culture - Final Citrobacter freundii Pseudomonas aeruginosa Physical Exam Const alert Constitutional Narrative: Tearful after we discussed the lack of progress with the LE's and what this likely means. General Appearance: cooperative HEENT normocephalic Eyes PERRL and EOMs intact bilaterally Neck supple, no JVD and no carotid bruits Resp normal respiratory effort, normal air movement and clear to auscultation bilaterally Cardio regular rate, regular rhythm, no murmurs, no rub and no gallops Cardio Narrative: no ectopy GI normal to inspection, nondistended, normoactive bowel sounds and non-tender GI Narrative: mild distension - suspect due to loss of abdominal muscle tone. good bowel function Narrative: urine in the Valencia and the tubing is pale yellow and clear. Bladder / Kidney Exam: catheter in place urethral Extremity General Extremity: Negative for edema Skin no rashes or lesions noted General Skin Exam: no breakdown Neuro CN's II-XII intact bilaterally Neuro Narrative: Paraplegia. no sensation below the nipple line except for pain in the R second toe with compression. 5/5 strength in the UE's Psych Psych Narrative: I suspect there may be some adjustment disorder/depression after the discussion today about lack of progress from the nipples distally and increasing chance that the paraplegia will be permanent. Appearance: appropriate Assessment & Plan Assessment/Plan (1) Physical debility: (2) Spinal cord injury at T1-T6 level: (3) H/O laminectomy: (4) Paraplegia following spinal cord injury: (5) Urine retention: (6) Neurogenic dysfunction of the urinary bladder: (7) Autonomic orthostatic hypotension: (8) Chronic anticoagulation: (9) History of mitral valve replacement with mechanical valve: (10) History of tricuspid valve repair: (11) Atrial flutter: QUALIFIERS: Atrial flutter type: unspecified Qualified Code(s): I 48.92 - Unspecified atrial flutter (12) History of left atrial appendage closure: PLAN: Plan 1. Continue therapy 2. Tasha was seen on team rounds today. Her sister and [id number] were present in the room for rounds. All questions were answered to their satisfaction.We discussed prognosis today. She is not progressing with the LE's. she is getting stronger in the UE's and she is able to propel the WC longer distances. Still incontinent of stool and Valencia is in place. I suspect when she started to bleed in the spinal canal there was a lack of blood and oxygen to the cord and the cord . Once the bleeding reached a level where the hematoma compressed the cord and she developed loss of sensation from the nipples down, flaccidity below the nipples and loss of bowel and bladder control she went to surgery immediately for evacuation of the clot and decompression of the cord. IF the paraplegia was due to compression of the cord by the hematoma I would expect that she would be showing some improvement and she is not. I suspect the spinal cord dysfunction is due to ischemia and not external compression of the cord. I discussed with Dafne and her family that I suspect the paraplegia will be permanent. Dafne and her family feel comfortable on the rehab floor and they all have trepidation around going home. Her sister has been coming in for training but, has not really shared care. She will be coming in from now on in the AM and performing daily care with therapy standing by for support if needed. Dafne and her family were tearful when I left the room. We discussed once again the sx of depression and when to bring this up with her physician. I related that I think Dafne and even family would benefit from some counselling and maybe even a support group since all of their lives have now changed. We are planning on DC in possibly a week when her sister feels comfortable to managing daily care at home. DME at admission will include a WC with anti-tip supports, reclining back and leg elevators and a [place] lift. 3. Avoid hot showers. Continue Midodrine 15 mg TID 4. Plan for home in approximately 1 week after family is able to complete daily care with only SBA from therapists. 5. discussed some of the things to monitor for daily.......like skin breakdown, changes in the urine, change in appetite, irritability, sleep disturbances, changes in appetite, etc. 6. INR is therapeutic at 2.9 today we will recheck Monday or Monday. The goal for the INR is to maintain between 2.5 and 3. Charges/Coding Visit Charges Inpatient E&M: 22525 Subs Hosp L2
--- NOTE | 2025-02-27 13:31 | CASEMGMT ---
Social Work IDT met with patient, sister and ABENA for Team meeting. Discussed patient's progress in PT/OT/SN. Educated to [facility] insurance with NRD 02/27 and continued stay is not guaranteed with each review. Discussed patient is beginning to plateau and looking toward setting DC date over the next week. Inquired about comfort with taking pt home. ABENA stated she has gotten more comfortable with ongoing therapy training, however, she expects to have some nervousness going home regardless. IDT agreed. SW offered shared care to assist with comfort and readiness. ABENA and pt agreed. ABENA scheduled to start on 03/03. Dr shared the news that pt is likely not going to regain function. Dr and SW provided emotional support. educated to symptoms of depression for pt and family. Offered the start of antidepressant for pt, if symptoms begin. Encouraged pt and family to begin counseling. TATUM provided counseling resources and offered to schedule appt for pt prior to DC. - TATUM updated [facility], as they are now the only accepting agency. Provided address and disciplines requested - PT/OT/SN/PIRES/SW. [facility] does not have SW. TATUM updated pt and ABENA, and further encouraged counseling services. TATUM will continue to follow to assist with DC planning and support. Jacqueline Jennings CANINE ENFORCEMENT OFFICER FUNERAL GREETER
[2025-02-27] MEDS: Warfarin (BKC) 3 MG Tablet PO (16:20)
--- NOTE | 2025-02-27 16:32 | CASEMGMT ---
Social Work SW received notification the insurance denied continued stay - LCD 03/02, DC 03/03. P2P appeal options provided. agreed to complete. TATUM phoned ABENA to update. Inquired if she wanted to start shared care tomorrow. ABENA to check schedule and notify nurse's station of outcome. TATUM updated therapy. TATUM will follow up tomorrow to finalize DC plans. Jacqueline Jennings READING AIDE ACETYLENE TORCH SOLDERER
--- NOTE | 2025-02-27 16:45 | CASEMGMT ---
Addendum entered by Jacqueline Jennings 03/03/25 11:08: TATUM scheduled cot transport through [facility] for 1300 on 03/06 Addendum entered by Jacqueline Jennings 02/28/25 14:01: Dr josr MartinezP. Pt is approved for DC 03/06. SW updated IDT, pt, ABENA, [facility] and [facility]. Plan: DC home with ABENA and brother for 05/06 care, [facility] PT/OT/SN/PIRES, milagro, reclining w/c, hospital bed Jacqueline Dick MCNEAL DEVELOPER [employer]CH[employer] Original Note: Social Work SW spoke with pt at bedside. Followed up on insurance DC. Educated to Dr carney P2P. Pt stated ABENA is completing shared care at 1100 this date for the day. If insurance does not approve continued stay, pt is going to pay privately through 03/05. SW inquired about pt's mood and feelings. Pt became a little tearful and replied, not totally down and out. SW validated pt can feel that way and encouraged to lean into her feelings. Acknowledging the major lifestyle change and the transitions with new 'first'. Pt thanked this worked extensively for the assistance and support throughout stay. Inquired about counseling services and insurance coverage. SW educated to the counseling agency to verify benefits or pt/family can contact insurance to verify benefits. The providers can also complete virtual visits. Pt appreciative. SW to keep pt updated on insurance outcome. - SW notified [facility] and [facility] and keep updated on finalized DC date. Jacqueline MARINELLI
[2025-02-27] MEDS: tiZANidine HCl 2 MG Tablet PO (21:19)
[2025-02-28 06:00] VITALS: BP 113/55; PULSE 64; RESP 15; TEMP 36.4; O2SAT 95; BMI 26.6
[2025-02-28] MEDS: Bisacodyl 10 MG Suppository RC (06:23)
[2025-02-28] MEDS: Midodrine HCl 5 MG Tablet 15 MG PO ×3 (06:31→15:48)
[2025-02-28] MEDS: Arthritis Pain Compound 60 CLICK TUBE TOPICAL ×2 (08:27→21:01)
[2025-02-28] MEDS: Senna/Docusate Sodium 1 Tablet 2 TABLET PO ×2 (08:28→21:02)
[2025-02-28] MEDS: Pantoprazole Sodium 40 MG Tablet PO (08:28)
[2025-02-28] MEDS: Amiodarone 200 MG Tablet PO (08:28)
[2025-02-28] MEDS: Multivitamins,Therapeutic Tablet 1 TABLET PO (08:28)
[2025-02-28 09:18] VITALS: PULSE 62; RESP 16
--- NOTE | 2025-02-28 10:27 | NURSING ---
Called [facility] to schedule [facility]. Left voicemail for options to schedule peer to peer. Will await return call.
--- NOTE | 2025-02-28 15:48 | PCM.PROGNOTE ---
Subjective Subjective Afebrile Vital signs stable Maintaining appropriate oxygen saturation on room air Good fluid intake Dafne is c/o burning pain in her R leg that awoke her from sleep last night. She also has pain during the day.....gets worse after therapy. This is new. Having some jerking of feet at times. Denies chest pain, cough, shortness of breath, lightheadedness, cephalgia, nausea and vomiting. Eating well. Continues to deny depression. Objective Data Objective Data Vital Signs: Vital Signs Temp Pulse Resp BP Pulse Ox O2 Del Method 97.6 F L 62 16 113/55 L 95 Room Air 02/28/25 06:00 02/28/25 09:18 02/28/25 09:18 02/28/25 06:00 02/28/25 06:00 02/28/25 09:18 Oxygen Delivery Method Room Air Weight: 155 lb 3.287 oz Body Mass Index (BMI) 26.6 Intake & Output: Intake and Output for Last 24 Hours 02/26/25 02/27/25 02/28/25 23:59 23:59 23:59 Intake Total 1430 / 1430 1810 / 1810 1680 / 1680 Output Total 2320 / 2320 2050 / 2050 1250 / 1250 Balance -890 / -890 -240 / -240 430 / 430 Lab / Micro Data 02/27/25 05:09 02/27/25 05:09 Micro: Microbiology 02/03/25 11:30 Urine Catheter - Valencia Urine Culture - Final Citrobacter freundii Pseudomonas aeruginosa Physical Exam Const alert Resp normal respiratory effort, normal air movement and clear to auscultation bilaterally Cardio regular rate, regular rhythm, no murmurs, no rub and no gallops Cardio Narrative: no ectopy GI normal to inspection, nondistended, normoactive bowel sounds and non-tender GI Narrative: mild distension - suspect due to loss of abdominal muscle tone. good bowel function Narrative: urine in the Valencia and the tubing is pale yellow and clear. Bladder / Kidney Exam: catheter in place urethral Extremity General Extremity: Negative for edema Skin no rashes or lesions noted General Skin Exam: no breakdown Neuro Neuro Narrative: Paraplegia. no sensation below the nipple line except for pain in the R second toe with compression. 5/5 strength in the UE's Assessment & Plan Assessment/Plan (1) Physical debility: (2) Spinal cord injury at T1-T6 level: (3) H/O laminectomy: (4) Paraplegia following spinal cord injury: (5) Urine retention: (6) Neurogenic dysfunction of the urinary bladder: (7) Autonomic orthostatic hypotension: (8) Chronic anticoagulation: (9) Neuropathic pain: PLAN: This is new. May be recovering some nerve function. PLAN: Plan 1. Continue therapy 2. Start Gabapentin 100 mg at 1999. 3. D/W peer to peer and they have approved additional time through next Monday. Plan DC home with family on . D/W TATUM who is arranging for hospital bed, [facility] humphrey and other needed DME. Charges/Coding Visit Charges Inpatient E&M: 98940 Subs Hosp L1
[2025-02-28] MEDS: Warfarin (BKC) 3 MG Tablet PO (16:18)
[2025-02-28 16:19] VITALS: BP 136/80; PULSE 70
[2025-02-28 17:30] VITALS: BP 164/72; PULSE 67; RESP 15; TEMP 36.6; O2SAT 97
[2025-02-28] MEDS: Gabapentin 100 MG Capsule PO (19:56)
[2025-02-28] MEDS: tiZANidine HCl 2 MG Tablet PO (21:02)
[2025-02-28 22:00] VITALS: BP 104/52; PULSE 71; RESP 18
[2025-03-01] MEDS: Bisacodyl 10 MG Suppository RC (05:18)
[2025-03-01 05:30] VITALS: BP 101/44; PULSE 60; RESP 17; TEMP 36.8; O2SAT 97
[2025-03-01] MEDS: Midodrine HCl 5 MG Tablet 15 MG PO ×3 (08:10→16:38)
[2025-03-01] MEDS: Arthritis Pain Compound 60 CLICK TUBE TOPICAL ×2 (08:10→21:19)
[2025-03-01] MEDS: Multivitamins,Therapeutic Tablet 1 TABLET PO (08:11)
[2025-03-01] MEDS: Pantoprazole Sodium 40 MG Tablet PO (08:11)
[2025-03-01] MEDS: Amiodarone 200 MG Tablet PO (08:11)
[2025-03-01] MEDS: Senna/Docusate Sodium 1 Tablet 2 TABLET PO ×2 (08:11→21:19)
[2025-03-01] MEDS: Ergocalciferol 1.25 MG (50, 000 UNIT) Capsule PO (08:12)
[2025-03-01] MEDS: Warfarin (BKC) 3 MG Tablet PO (16:37)
[2025-03-01 18:00] VITALS: BP 149/68; PULSE 63; RESP 16; TEMP 37.1; O2SAT 96
[2025-03-01] MEDS: Gabapentin 100 MG Capsule PO (20:23)
[2025-03-01] MEDS: tiZANidine HCl 2 MG Tablet PO (21:19)
[2025-03-01 22:00] VITALS: BP 112/62; PULSE 62; RESP 16
[2025-03-02 05:58] VITALS: BP 116/59; PULSE 64; RESP 16; TEMP 37.1; O2SAT 97
[2025-03-02] MEDS: Bisacodyl 10 MG Suppository RC (06:22)
[2025-03-02] MEDS: Midodrine HCl 5 MG Tablet 15 MG PO ×3 (07:36→16:05)
[2025-03-02] MEDS: Arthritis Pain Compound 60 CLICK TUBE TOPICAL ×2 (07:36→20:56)
[2025-03-02] MEDS: Multivitamins,Therapeutic Tablet 1 TABLET PO (07:37)
[2025-03-02] MEDS: Pantoprazole Sodium 40 MG Tablet PO (07:37)
[2025-03-02] MEDS: Senna/Docusate Sodium 1 Tablet 2 TABLET PO ×2 (07:37→20:56)
[2025-03-02] MEDS: Amiodarone 200 MG Tablet PO (07:37)
[2025-03-02 07:43] VITALS: BP 95/53
[2025-03-02 11:48] VITALS: BP 131/59
[2025-03-02] MEDS: Warfarin (BKC) 3 MG Tablet PO (16:04)
[2025-03-02 18:00] VITALS: BP 159/66; PULSE 66; RESP 16; TEMP 36.5; O2SAT 97
[2025-03-02] MEDS: tiZANidine HCl 2 MG Tablet PO (20:56)
[2025-03-02] MEDS: Gabapentin 100 MG Capsule PO (20:56)
[2025-03-02 21:30] VITALS: BP 156/80; PULSE 65
[2025-03-03] MEDS: Bisacodyl 10 MG Suppository RC (05:59)
[2025-03-03 06:00] LABS: International Normalized Ratio 2.7; Prothrombin Time (Protime)PT. 29.7 SECONDS (11.7-14.9)
[2025-03-03 06:03] VITALS: BP 122/63; PULSE 67; RESP 16; TEMP 36.3; O2SAT 96
[2025-03-03] MEDS: Arthritis Pain Compound 60 CLICK TUBE TOPICAL ×2 (07:41→20:54)
[2025-03-03] MEDS: Amiodarone 200 MG Tablet PO (07:42)
[2025-03-03] MEDS: Senna/Docusate Sodium 1 Tablet 2 TABLET PO ×2 (07:42→20:55)
[2025-03-03] MEDS: Pantoprazole Sodium 40 MG Tablet PO (07:42)
[2025-03-03] MEDS: Multivitamins,Therapeutic Tablet 1 TABLET PO (07:42)
[2025-03-03] MEDS: Midodrine HCl 5 MG Tablet 15 MG PO ×3 (07:42→16:22)
--- NOTE | 2025-03-03 09:52 | PN_ITS ---
Subjective Subjective Afebrile VSS -blood pressures over the past 24 hours have ranged from 95/53 to 156/80 Maintaining appropriate oxygen saturation on RA Oral intake - FOOD good FLUIDS good Having 1-2 bowel movements daily. Discussed with nursing - no problems that need addressed Reviewed the THERAPY notes Medication list reviewed. INR is stable and is 2.7 today on 3 mg of warfarin daily. Since the gabapentin was started at bedtime she has had no awakenings at night with burning pain in her legs. She is having burning in both thighs during the day but wants to continue with Gabapentin only at night. She will let me know if this changes. Denies lightheadedness, CP, SOB, N/V/abd pain, suprapubic pain. Denies feeling depressed. She is sleeping well and has a good appetite. working hard in therapy. Her sister is doing her care today with therapist at [facility]. Objective Data Objective Data Vital Signs: Vital Signs Temp Pulse Resp BP Pulse Ox O2 Del Method 97.3 F L 67 16 122/63 H 96 Room Air 03/03/25 06:03 03/03/25 06:03 03/03/25 06:03 03/03/25 06:03 03/03/25 06:03 03/03/25 06:03 Oxygen Delivery Method Room Air Weight: 155 lb 3.287 oz Body Mass Index (BMI) 26.6 Intake & Output: Intake and Output for Last 24 Hours 03/01/25 03/02/25 03/03/25 23:59 23:59 23:59 Intake Total 2365 / 2365 1800 / 1800 240 / 240 Output Total 1950 / 1950 1550 / 1550 350 / 350 Balance 415 / 415 250 / 250 -110 / -110 Lab / Micro Data 02/27/25 05:09 02/27/25 05:09 Labs: Laboratory Results - last 24 hr 03/03/25 05:27: PT 29.7 H, INR 2.7 Micro: Microbiology 02/03/25 11:30 Urine Catheter - Valencia Urine Culture - Final Citrobacter freundii Pseudomonas aeruginosa Physical Exam Const alert Resp normal respiratory effort, normal air movement and clear to auscultation bilaterally Cardio regular rate, regular rhythm, no murmurs, no rub and no gallops Cardio Narrative: no ectopy GI normal to inspection, nondistended, normoactive bowel sounds and non-tender GI Narrative: mild distension - suspect due to loss of abdominal muscle tone. good bowel function Narrative: urine in the Valencia and the tubing is pale yellow and clear. Bladder / Kidney Exam: catheter in place urethral Extremity General Extremity: Negative for edema Skin no rashes or lesions noted General Skin Exam: no breakdown Neuro Neuro Narrative: Paraplegia. no sensation below the nipple line except for pain in the R second toe with compression. 5/5 strength in the UE's. doing well with manipulating the WC. Has c/o burning pain in both thighs today........taking GAbapentin at HS with good relief of the burning. Assessment & Plan Assessment/Plan (1) Physical debility: (2) Spinal cord injury at T1-T6 level: (3) H/O laminectomy: (4) Paraplegia following spinal cord injury: (5) Urine retention: (6) Neurogenic dysfunction of the urinary bladder: (7) Autonomic orthostatic hypotension: (8) Chronic anticoagulation: (9) Neuropathic pain: PLAN: Plan 1. Continue therapy 2. Continue gabapentin 100 mg at at bedtime. 3. Plan discharge for to home. Her sister will continue to come in for shared care with the therapist providing standby assistance if needed only. 4. CBC and CMP in the a.m. in preparation for discharge . 5. Check a UA today. Charges/Coding Visit Charges Inpatient E&M: 65024 Subs Hosp L1
[2025-03-03 14:24] LABS: Bacteria 0 SEEN /hpf (None Seen); Mucous, Urine 0 SEEN /hpf (<or=2+)
[2025-03-03 14:27] LABS: Color, Urine Yellow (Yellow); Glucose, Dipstick Normal (Normal); Ketone-Dipstick Negative (Negative); Leukocyte Esterase-Dipstick 25 /ul (Negative); Nitrite-Dipstick Negative (Negative); Occult Blood-Urine 250 /ul (Negative); Protein-Dipstick 15 mg/dl (Negative); Specific Gravity, Urine 1.015 (1.002-1.030); Urine Bilirubin Dipstick Negative (Negative); Urine Clarity Clear (Clear); Urine Urobilinogen Normal (Normal)
[2025-03-03] MEDS: Warfarin (BKC) 3 MG Tablet PO (16:21)
[2025-03-03 17:03] LABS: Red Blood Cells-Urine 0-5 SEEN /hpf (0-5); Squamous Epithelial Cells - UA 0-5 SEEN /hpf (5-10); White Blood Cells 0-5 SEEN /hpf (0-5)
[2025-03-03 17:54] VITALS: BP 157/73; PULSE 57; RESP 17; TEMP 36.6; O2SAT 98
[2025-03-03] MEDS: Gabapentin 100 MG Capsule PO (20:33)
[2025-03-03] MEDS: tiZANidine HCl 2 MG Tablet PO (20:55)
[2025-03-03 21:08] VITALS: BP 130/61; PULSE 61
[2025-03-03 22:00] VITALS: PULSE 61; RESP 16; O2SAT 98
[2025-03-04 05:43] VITALS: BP 99/45; PULSE 63; RESP 14; TEMP 37.1; O2SAT 97
[2025-03-04 05:51] LABS: Hematocrit 36.9 % (37-47); Hemoglobin 12.1 g/dL (12.0-15.0); Mean Corp Hgb Conc 32.8 g/dL (32-36); Mean Corpuscular Hgb 31.3 pg (27.0-32.0); Mean Corpuscular Volume 95.3 fL (81-99); Mean Platelet Vol. 11.9 fl (6.2-12.0); Platelet Count 283 K/mm3 (150-450); RBC Distribution Width CV 13.6 % (11.6-14.6); Red Blood Count 3.87 M/mm3 (4.2-5.4); White Blood Count 8.6 K/mm3 (4.4-11.0)
[2025-03-04 06:24] LABS: ALB/GLOB Ratio 1.2 RATIO (0.9-2.4); AST(SGOT) 23 U/L (<=31); Alanine Aminotransfer ALT/SGPT 16 U/L (<=34); Albumin, Serum 3.7 g/dL (3.5-5.0); Alkaline Phosphatase 77 U/L (35-104); Anion Gap 10 (5-15); BUN 13 mg/dL (4-19); BUN/Creat Ratio 18.7 RATIO (10-20); Calcium,Total 9.3 mg/dL (7.6-11.0); Carbon Dioxide 24.7 mmol/L (21.0-32.0); Chloride 103 mmol/L (98-108); Creatinine, Serum 0.68 mg/dL (0.70-1.20); EST Glomerular Filtration Rate 107 (>60); Globulin 3.1 g/dL (2.2-4.2); Glucose 93 mg/dL (70-99); Potassium 4.2 mmol/L (3.3-5.1); Protein, Total 6.8 g/dL (5.9-8.4); Sodium Level 137 mmol/L (133-145); Total Bilirubin 0.34 mg/dL (0.00-1.30)
[2025-03-04] MEDS: Midodrine HCl 5 MG Tablet 15 MG PO (07:25)
[2025-03-04] MEDS: Senna/Docusate Sodium 1 Tablet 2 TABLET PO ×2 (07:45→21:12)
[2025-03-04] MEDS: Amiodarone 200 MG Tablet PO (07:46)
[2025-03-04] MEDS: Pantoprazole Sodium 40 MG Tablet PO (07:46)
[2025-03-04] MEDS: Multivitamins,Therapeutic Tablet 1 TABLET PO (07:46)
[2025-03-04] MEDS: Bisacodyl 10 MG Suppository RC (07:49)
--- NOTE | 2025-03-04 09:19 | PCM.PROGNOTE ---
Subjective Subjective Afebrile VSS - Maintaining appropriate oxygen saturation on RA Oral intake - FOOD good FLUIDS good Discussed with nursing - no problems that need addressed Reviewed the THERAPY notes Medication list reviewed. All lab was personally reviewed. The white blood cell count is normal at 8.6. Hemoglobin is normal at 12.1 and platelets are within normal limits. Creatinine is stable at 0.68 and the remainder of the BMP is normal. LFTs are normal. UA was negative for any sign of infection. 0-5 WBCs, 0-5 RBCs and no bacteria observed. Dafne's [id number] Lisa is getting more comfortable with Dafne's care. Did not sleep well last night........may have been a little anxious about DC on . Had some burning in her legs last night. Previous night she slept well. Burning in the legs during the day also.......tolerable and does not want Gabapentin for this. Denies chest pain, shortness of breath, cough, sore throat, cephalgia, lightheadedness. Objective Data Objective Data Vital Signs: Vital Signs Temp Pulse Resp BP Pulse Ox O2 Del Method 98.8 F 63 14 99/45 L 97 Room Air 03/04/25 05:43 03/04/25 05:43 03/04/25 05:43 03/04/25 05:43 03/04/25 05:43 03/04/25 05:43 Oxygen Delivery Method Room Air Weight: 155 lb 3.287 oz Body Mass Index (BMI) 26.6 Intake & Output: Intake and Output for Last 24 Hours 03/02/25 03/03/25 03/04/25 23:59 23:59 23:59 Intake Total 1800 / 1800 940 / 940 720 / 720 Output Total 1550 / 1550 2375 / 2375 600 / 600 Balance 250 / 250 -1435 / -1435 120 / 120 Lab / Micro Data 03/04/25 05:29 03/04/25 05:29 Labs: Laboratory Results - last 24 hr 03/03/25 14:00: Urine Color Yellow, Urine Clarity Clear, Urine pH 6.0, Ur Specific G[place]pie 1.015, Urine Protein 15 H, Urine Glucose (UA) Normal, Urine Ketones Negative, Urine Occult Blood 250 H, Urine Nitrite Negative, Urine Bilirubin Negative, Urine Urobilinogen Normal, Ur Leukocyte Esterase 25 H, Urine RBC 0-5 SEEN, Urine WBC 0-5 SEEN, Ur Squamous Epith Cells 0-5 SEEN, Urine Bacteria 0 SEEN, Urine Mucus 0 SEEN 03/04/25 05:29: WBC 8.6, RBC 3.87 L, Hgb 12.1, Hct 36.9 L, MCV 95.3, MCH 31.3, MCHC 32.8, RDW Std Deviation 48.0 H, RDW Coeff of Hans 13.6, Plt Count 283, MPV 11.9, Sodium 137, Potassium 4.2, Chloride 103, Carbon Dioxide 24.7, Anion Gap 10, BUN 13, Creatinine 0.68 L, Estim Creat Clear Calc 97.40, Est GFR (MDRD) Non-Af 107, BUN/Creatinine Ratio 18.7, Glucose 93, Calcium 9.3, Total Bilirubin 0.34, AST 23, ALT 16, Alkaline Phosphatase 77, Total Protein 6.8, Albumin 3.7, Globulin 3.1, Albumin/Globulin Ratio 1.2 Micro: Microbiology 02/03/25 11:30 Urine Catheter - [place] Urine Culture - Final Citrobacter freundii Pseudomonas aeruginosa Physical Exam Const alert, oriented x3 and no apparent distress Constitutional Narrative: Upbeat and positive attitude. Smiling. General Appearance: cooperative Resp clear to auscultation bilaterally Cardio regular rate, regular rhythm, no rub and no gallops Cardio Narrative: No ectopy GI normal to inspection, nondistended, normoactive bowel sounds, soft to palpation and non-tender Extremity no calf tenderness Extremity Narrative: ISABEL hose are in place. General Extremity: Negative for edema Skin General Skin Exam: no breakdown Rashes: no rashes Neuro Neuro Narrative: No objective change in neuroexam. Psych affect normal Assessment & Plan Assessment/Plan (1) Physical debility: (2) Spinal cord injury at T1-T6 level: (3) H/O laminectomy: (4) Paraplegia following spinal cord injury: (5) Urine retention: (6) Neurogenic dysfunction of the urinary bladder: (7) Autonomic orthostatic hypotension: (8) Chronic anticoagulation: (9) Neuropathic pain: PLAN: Plan 1. Continue therapy 2. Recheck a PT/INR in the a.m. 3. Change tizanidine to 2 mg p.o. every 8 hours as needed muscle spasm at patient's request. 4. Continue gabapentin 100 mg p.o. nightly. If she has another bad night tonight and does not sleep well will increase gabapentin to 200 mg at bedtime. 5. Try decreasing midodrine to 10 mg p.o. 3 times daily. If postural lightheadedness recurs will resume 15 mg 3 times daily. 6. A prescription for a handicap placard was completed and given to Lisa to take to the [employer] 7. DME is to be delivered 8. Both Lisa and Tasha had a lot of questions which I answered to their satisfaction. Charges/Coding Visit Charges Inpatient E&M: 98087 Subs Hosp L1
[2025-03-04] MEDS: Midodrine HCl 5 MG Tablet 10 MG PO ×2 (12:26→16:10)
[2025-03-04] MEDS: Warfarin (BKC) 3 MG Tablet PO (16:10)
[2025-03-04 17:44] VITALS: BP 130/64; PULSE 76; RESP 16; TEMP 36.4; O2SAT 97
[2025-03-04] MEDS: Arthritis Pain Compound 60 CLICK TUBE TOPICAL (21:10)
[2025-03-04] MEDS: Gabapentin 100 MG Capsule PO (21:11)
[2025-03-04 21:19] VITALS: BP 110/62; PULSE 66
[2025-03-05 06:00] VITALS: BP 120/58; PULSE 65; RESP 14; TEMP 37.1; O2SAT 97
[2025-03-05 06:07] LABS: International Normalized Ratio 2.8; Prothrombin Time (Protime)PT. 30.2 SECONDS (11.7-14.9)
[2025-03-05] MEDS: Amiodarone 200 MG Tablet PO (07:46)
[2025-03-05] MEDS: Midodrine HCl 5 MG Tablet 10 MG PO ×3 (07:46→16:05)
[2025-03-05] MEDS: Senna/Docusate Sodium 1 Tablet 2 TABLET PO ×2 (07:46→20:46)
[2025-03-05] MEDS: Multivitamins,Therapeutic Tablet 1 TABLET PO (07:46)
[2025-03-05] MEDS: Pantoprazole Sodium 40 MG Tablet PO (07:46)
[2025-03-05] MEDS: Arthritis Pain Compound 60 CLICK TUBE TOPICAL ×2 (07:47→20:46)
[2025-03-05] MEDS: Bisacodyl 10 MG Suppository RC (07:49)
--- NOTE | 2025-03-05 11:26 | DCINST_ITS ---
Discharge Instructions Diet Discharge Diet: No restrictions DC O2, CPAP, BIPAP needs Home O2 Discharge instructions: No Dressing / Incision Discharge Activity: May Not Drive, May Shower and - (Use wheelchair) Weight Bearing Status: No weight bearing (No weightbearing on the lower extremities-patient is paraplegic.) Keep extremity elevated above heart level: Legs Dressing / Incision Call your doctor if you observe: Fever of 101 or Higher, Inability to have a bowel movement, Shortness of breath, Dizziness, Fainting spells, Swelling in the ankles, Chest pain, Increased palpitations (irregular heartbeat), Uncontrolled pain and - (Any openings in the skin. Change in the urine such as blood in the urine or it gets cloudy. FEver, night sweats, shaking chills. Increased burning pain in the legs. ) Suture Line Care: Avoid Pulling/Pushing and Avoid Pinching/Bending Cleanse incision/area with: Soap & Water Follow Up Care Please Follow Up With: Katya Trujillo PA-C When: Appt has been scheduled for March 17 at 10:45 AM. You also have an appointment to follow-up with on 03/11/25at 10 AM. You will also need to follow up with your scallop cutter machine. Test Results: Test results from this visit will be discussed in further detail at your follow- up appointment, if applicable. Pending Tests Upon Discharge: none Discharge Plan Admission Admit Date/Time: 02/02/25 15:15 Primary Reason for Your Visit: Debility due to spinal stenosis with cord injury and paraplegia. Attending Provider: Brooke Alvarado Primary Care Provider: Katya Trujillo Instructions Patient Instructions: SCI Prevent Complications, SCI Pressure Injuries, SCI Manage Bowel, SCI Manage Bladder, SCI Understanding, Indwelling Urinary Catheter Dc, ED Pressure Injury Additional Instructions / Restrictions: 1. I have included in the Discharge instructions some literature on things to look out for in patients with spinal cord injuries. Please read through them and if you have any questions please do not hesitate to call me for clarification. 2. All you lab and the urine analysis done 1-2 days prior to discharge looked good. The INR was 2.8 and it has been stable between 2.7 and 2.9 the last 3 t imes we have checked it. The dose of Warfarin you are taking now is 3 mg daily. 3. Check for any skin breakdown, abraham on the heels and the buttocks, daily. If there are any openings in the skin notify the home health nurse immediately. Also look at the urine in the catheter tubing and bag daily. If the urine becomes cloudy or has a bad odor that is new or if there is blood in the urine then let the home health nurse know. They will want to check a urine analysis to check for infection. The first thing in the morning the urine is usually more concentrated and there may be a stronger ammonia smell......if the smell is different/stronger, abraham if cloudy, then this could be due to a urinary tract infection. 4. If you have fever, sweats, shaking chills, nausea/vomiting, cough call your primary care provider for instructions. 5. If you or your family have any questions please call me. OFFICE: [phone] CELL: [phone] NURSES STATION ON REHAB: [phone] Discharge Orders/Prescriptions Prescriptions: New acetaminophen 325 mg Tablet 650 mg PO Q6H PRN PRN (Reason: Pain 1-10 Or Fever) Qty: 1 0RF bisacodyl 10 mg suppository 10 mg CA DAILY Qty: 30 0RF multivitamin Tablet 1 tab PO DAILY Qty: 1 0RF bisacodyl 10 mg Suppository 10 mg CA 0800 Qty: 30 0RF midodrine 10 mg tablet 10 mg PO TID Qty: 90 0RF Rx Instructions: do not give last dose of day after 6PM or within 4 hrs of bedtime gabapentin 100 mg capsule 100 mg PO QHS Qty: 30 0RF tizanidine 2 mg tablet 2 mg PO Q8H PRN (Reason: muscle spasticity) Qty: 30 0RF warfarin 3 mg tablet 3 mg PO DAILY Qty: 30 0RF Continued amiodarone 200 mg tablet 200 mg PO DAILY Qty: 30 0RF ergocalciferol (vitamin D2) 1,250 mcg (50,000 unit) capsule 1,250 mcg PO QWEEK Qty: 4 0RF Patient Comments: Every Monday Discontinued cefdinir 300 mg capsule 300 mg PO BID enoxaparin 80 mg/0.8 mL syringe 80 mg subcut Q12H midodrine 5 mg tablet 5 mg PO TID pantoprazole 40 mg tablet,delayed release (DR/EC) 40 mg PO DAILY tizanidine 2 mg tablet 2 mg PO Q8H warfarin 2 mg tablet 2 mg PO DAILY Referrals / Follow Up: Tripp Gentile MD [Non-Staff] - 03/11/25 10:00 am Katya Trujillo PA-C [Primary Care Provider] - 03/17/25 10:45 am Disposition Disposition (needs filled in before D/C Order can be placed): Home Health Service
[2025-03-05] MEDS: Warfarin (BKC) 3 MG Tablet PO (16:05)
[2025-03-05 17:31] VITALS: BP 137/61; PULSE 64; RESP 15; TEMP 36.4; O2SAT 100
[2025-03-05] MEDS: Gabapentin 100 MG Capsule PO (20:46)
[2025-03-05 21:07] VITALS: BP 130/69; PULSE 64
[2025-03-06 06:00] VITALS: BP 131/59; PULSE 70; RESP 16; TEMP 36.9; O2SAT 97
[2025-03-06] MEDS: Midodrine HCl 5 MG Tablet 10 MG PO ×2 (07:07→12:24)
[2025-03-06] MEDS: Amiodarone 200 MG Tablet PO (08:33)
[2025-03-06] MEDS: Senna/Docusate Sodium 1 Tablet 2 TABLET PO (08:34)
[2025-03-06] MEDS: Multivitamins,Therapeutic Tablet 1 TABLET PO (08:34)
[2025-03-06] MEDS: Arthritis Pain Compound 60 CLICK TUBE TOPICAL (08:34)
[2025-03-06] MEDS: Pantoprazole Sodium 40 MG Tablet PO (08:35)
--- NOTE | 2025-03-06 09:05 | PCM.DC.SUM ---
Providers Date of Admission: 02/02/25 Date of Discharge: 03/06/25 Primary Care Physician: Katya Trujillo PA-C none Reason For Visit: EPIDURAL HEMATOMA WITH SPINAL CORD INJURY Diagnosis Discharge Diagnosis (1) Physical debility: Status: Acute Code(s): R53.81 - Other malaise (2) Spinal cord injury at T1-T6 level: Status: Acute Code(s): S24.101A - Unspecified injury at T1 level of thoracic spinal cord, initial encounter Plan: Due to epidural hematoma. (3) H/O laminectomy: Status: Acute Code(s): Z98.890 - Other specified postprocedural states Plan: Thoracic laminectomy (T1-T5) with decompression and hematoma evacuation by Dr. Gentile for cord compressions secondary to epidural hematoma. 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 (6) Neurogenic dysfunction of the urinary bladder: Status: Chronic Code(s): N31.9 - Neuromuscular dysfunction of bladder, unspecified (7) Autonomic orthostatic hypotension: Status: Chronic Code(s): I95.1 - Orthostatic hypotension Plan: Neurogenic due to spinal cord injury in the thoracic region. (8) Chronic anticoagulation: Status: Chronic Code(s): Z79.01 - MCFP (current) use of anticoagulants Plan: Goal for INR is 2.5-3.0. INR was 2.8 on 03/05/25. It has been stable between 2.7-2.9 on 3 mg of Warfarin daily. (9) Neuropathic pain: Status: Acute Code(s): M79.2 - Neuralgia and neuritis, unspecified Plan: Burning pain in the thighs. Taking Gabapentin 100 mg at HS. Also has neuropathic pain in the day but, she tolerates this with no medication at the time of discharge. (10) Muscle spasm: Status: Acute Code(s): M62.838 - Other muscle spasm Plan: Initially on scheduled Tizanidine 3 times a day but, a few days prior to DC Tizanidine was made PRN and she has not needed to take any for 48 hours prior to DC. (11) Atrial flutter: Status: Chronic Code(s): I48.92 - Unspecified atrial flutter Qualifiers: Atrial flutter type: unspecified Qualified Code(s): I48.92 - Unspecified atrial flutter Plan: On amiodarone. Has been in sinus rhythm jesica time she was examined while on acute rehab. (12) History of left atrial appendage closure: Status: Chronic Code(s): Z98.890 - Other specified postprocedural states (13) History of tricuspid valve repair: Status: Chronic Code(s): Z98.890 - Other specified postprocedural states (14) History of mitral valve replacement with mechanical valve: Status: Acute Code(s): Z95.2 - Presence of prosthetic heart valve (15) Fecal incontinence: Status: Acute Code(s): R15.9 - Full incontinence of feces Qualifiers: Fecal incontinence type: full incontinence of feces Qualified Code(s): R15.9 - Full incontinence of feces Plan: Neurogenic Plan 1. DC home with brother and [id number]. C for PT/OT/SN/PIRES. DME includes [place] lift, hospital bed and a reclining WC. 2. Follow up has been scheduled with PCP, Katya García NP and with Dr. Gentile, spinal surgeon. Will also need to follow up with her sales applications engineer. 3. Recheck INR in 1 week. Medications at Discharge Home Medications acetaminophen 325 mg tablet 650 mg (2 x 325 mg) PO Q6H PRN PRN Pain 1-10 Or Fever #1 TAB 03/05/25 amiodarone 200 mg tablet 200 mg PO DAILY b/p #30 tabs 03/05/25 bisacodyl 10 mg rectal suppository 10 mg MO 0800 #30 ea 03/05/25 bisacodyl 10 mg rectal suppository 10 mg MO DAILY #30 ea 03/05/25 ergocalciferol (vitamin D2) 1,250 mcg (50,000 unit) capsule 1,250 mcg PO QWEEK supplement #4 caps 03/05/25 gabapentin 100 mg capsule 100 mg PO QHS #30 caps 03/05/25 midodrine 10 mg tablet 10 mg PO TID #90 tabs 03/05/25 multivitamin 1 tab PO DAILY #1 TAB 03/05/25 tizanidine 2 mg tablet 2 mg PO Q8H PRN muscle spasticity #30 tabs 03/05/25 warfarin 3 mg tablet 3 mg PO DAILY #30 tabs 03/05/25 midodrine 10 mg tablet 10 mg PO TID #90 tabs 03/06/25 Hospital Course Operations - (Thoracic laminectomy, T1-T5, with decompression and evacuation of epidural hematoma by Dr. Gentile.) Procedures None Summary of Care Provided Minutes Spent on Discharge: 40 Hospital Course: VIOLET GOLDSTEIN, is a 49 YO F with a PMH of atrial flutter, rheumatic fever, mitral valve replacement, aortic valve replacement, chronic anticoagulation with warfarin, tricuspid valve repair and left atrial appendage closure who presented to an emergency room on 01/17/2025 with complaints of headache and back pain with radiation of pain into her chest. She was transferred to [facility] on January 18, 2025. She was started on a heparin drip. She underwent a stress test which showed probable variable breast attenuation artifact but ischemia could not be excluded. An echocardiogram was concerning for moderate to severe aortic valve regurgitation. The EF was 60 to 65%. Right ventricular systolic pressure was mildly elevated at 36. The tricuspid valve had mild to moderate regurgitation. She was seen by cardiology. Further cardiac workup was not pursued due to sudden onset of severe back pain with acute bilateral lower extremity weakness and numbness along with right arm weakness. Neurosurgery was consulted and she had an MRI of her thoracic, lumbar and cervical spine that showed heterogeneous fluid collection or mass at the level of T1-T6 with moderate cord compression and mild cord edema at T2-T4. Patient had a rapid loss of sensation and motor function from the nipple level down. She underwent emergent thoracic laminectomy (T1-T5), decompression and hematoma evacuation by Dr. Gentile. She was cleared to restart anticoagulation on January 21, 2025. Post op she had orthostatic hypotension and was on Midodrine 5 mg TID at the time of transfer to acute rehab. She also had urine retention (Valencia catheter was present at the time of admission to rehab) and complete fecal incontinence. She was transferred to the acute inpatient rehab unit at [facility] on 02/02/2025 for 3 hours of therapy daily to restore function/independence. Violet had severe orthostasis with near syncope at presentation to rehab even with Midodrine 5 mg TID. SX resolved with lying her down. Midodrine was increased to 10 mg TID and then to 15 mg TID. The dose was decreased to 10 mg TID on 03/04/2025 and the BP for 48 Hours prior to DC ranged form 99/45 to 137/61. She has no lightheadedness at the time of discharge. She has had no high BP's when lying nearly flat in the bed. At presentation to rehab she was having back spasms and was taking Tizanidine 2 mg TID. This was eventually weaned down to 2 mg BID and 2 days prior to discharge Tizanidine was made PRN and she has not had any Tizanidine for 48 hours prior to DC. Initially she had no feeling from the nipple level distally. Toward the end of her stay on rehab she started having burning pain, primarily in the thighs. This bothered her mostly at night. She was started on Gabapentin 100 mg at and this was effective in controlling the pain. Lab was rechecked 2 days prior to discharge and they went till count was normal. Hemoglobin is up to 12.2 with normocytic, normochromic indices. Platelets were within normal limits. INR has been stable between 2.7 and 2.9 since 02/27/2025. On 03/05/2025 it was 2.8. BMP was unremarkable. Creatinine is stable at 0.68. LFTs and calcium are within normal limits. The urine in the Valencia bag and tubing is pale yellow and clear. A UA was done on 03/03/2025 and showed 0-5 WBCs per high-power field with no bacteria. She has been afebrile with stable vital signs. She was started on a bowel regimen and receives a Dulcolax suppository daily in the AM. She has been having 0-2 bowel movements daily. Her sxeadf-ao-upm, Lisa, came in to the rehab unit multiple days prior to DC and had training in how to care for Violet by therapists and nursing. Both Lisa and Violet feel comfortable with Lisa doing the [place] transfers and the daily care at the time of DC. Lisa and Violet were educated on things to look for that would trigger a call to HHC SN or her PCP. At the time of discharge she is able to propel the wheelchair on various surfaces 330 feet at mod I. Slide board transfers are at max assist x 1 with min assist of another for safety. She is contact-guard assist/min assist for rolling and she is standby assist for supine to long sit then contact-guard assist from long sit to sit at the edge of the bed. She is dependent x 2 persons for [place] lift out of the bed to the chair and from the chair into bed max assist of 1 to get the lower extremities into the bed. She is independent with eating and requires minimal assistance for grooming. She requires moderate assistance for bathing and lower body dressing. She is standby assist for upper body dressing. She is total assistance with toileting, toilet transfer and shower transfer. Tasha was discharged on 03/06/2025 and will be going home with her brother and [id number]. She will receive home health care for PT/OT/SN/SENIOR WINDOWS SYSTEMS ADMINISTRATOR. Durable medical equipment, to be delivered on the day of discharge, includes a [place] lift, hospital bed and a reclining wheelchair. She has follow-up appointment scheduled for her with Katya García HOTEL RECEPTIONIST, PCP, and Dr. Gentile (spine surgeon). She will also need to follow up with her sales applications engineer. Physical Exam Const alert, oriented x3 and no apparent distress Constitutional Narrative: Upbeat and positive attitude. Smiling. General Appearance: cooperative, comfortable and well kempt HEENT head/scalp atraumatic, hearing grossly normal bilaterally and moist oral mucous membranes Eyes PERRL, EOMs intact bilaterally, conjunctivae normal and no scleral icterus Eyes Narrative: No discharge from the eyes and no mattering of the eyelashes. Neck No nuchal rigidity, supple, No nodes and no carotid bruits General: trachea midline Resp clear to auscultation bilaterally Resp Narrative: Not tachypneic, no conversational dyspnea. Effort and Inspection: able to speak in complete sentences Cardio regular rate, regular rhythm, no rub and no gallops Cardio Narrative: No ectopy GI normal to inspection, nondistended, normoactive bowel sounds, soft to palpation and non-tender no CVA tenderness Extremity no calf tenderness Extremity Narrative: ISABEL hose are in place. General Extremity: Negative for edema Skin General Skin Exam: no breakdown Rashes: no rashes Neuro Neuro Narrative: NO sensation to pinprick or light touch up to the nipple level. No movement of the LE's. Incontinent of urine and bowel. Has burning pain in the anterior thighs.........controlled with 1 dose of Gabapentin at HS. 5/5 strength on the UE's with intact sensation. Psych mental status grossly normal, thought process normal, affect normal, speech normal, denies homicidal ideation and denies suicidal ideation Appearance: grossly normal, appropriate and well kempt Attitude: calm and engaged Activity / Motor Behavior: appropriate eye contact Mood & Affect: euthymic mood Weight / BMI Weight Weight: 155 lb 3.287 oz Body Mass Index (BMI) 26.6 ABG / Lab / Microbiology Data 03/04/25 05:29 03/04/25 05:29 Microbiology: Microbiology 02/03/25 11:30 Urine Catheter - Valencia Urine Culture - Final Citrobacter freundii Pseudomonas aeruginosa D/C Instructions Discharge Diet: No restrictions Weight Bearing Status: No weight bearing (No weightbearing on the lower extremities-patient is paraplegic.) Keep extremity elevated above heart level: Legs Call your doctor if you observe: Fever of 101 or Higher, Inability to have a bowel movement, Shortness of breath, Dizziness, Fainting spells, Swelling in the ankles, Chest pain, Increased palpitations (irregular heartbeat), Uncontrolled pain and - (Any openings in the skin. Change in the urine such as blood in the urine or it gets cloudy. FEver, night sweats, shaking chills. Increased burning pain in the legs. ) Suture Line Care: Avoid Pulling/Pushing and Avoid Pinching/Bending Cleanse incision/area with: Soap & Water DC O2, CPAP, BIPAP Needs Home O2 Discharge instructions: No Pending Tests Upon Discharge: none Please Follow Up With: Katya Trujillo PA-C When: Appt has been scheduled for March 17 at 10:45 AM. You also have an appointment to follow-up with on 03/11/25at 10 AM. You will also need to follow up with your sales applications engineer. Meaningful Use Info Meaningful Use Meaningful Use Diagnoses (Choose all that apply): None applicable Ischemic Stroke Statin Dosing Therapy Reference: STATIN DOSE THERAPY REFERENCE: * Patients > 75 years receive moderate or high dose statin therapy. * Patients 75 years or YOUNGER should receive HIGH intensity statin dose unless contraindicated. You will be required to document reason for non-treatment if statin daily dose does not meet guidelines. HIGH DOSE STATIN THERAPY DAILY Atorvastatin > than or = to 40 mg Rosuvastatin > than or = to 20 mg Amlodipine + Atorvastatin > than or = to 2.5/40 mg Ezetimibe + Simvastatin 10/80 mg Simvastatin 80mg Discharge Plan Admission Admit Date/Time: 02/02/25 15:15 Primary Reason for Your Visit: Debility due to spinal stenosis with cord injury and paraplegia. Attending Provider: Brooke Alvarado Primary Care Provider: Katya Trujillo Instructions Patient Instructions: SCI Prevent Complications, SCI Pressure Injuries, SCI Manage Bowel, SCI Manage Bladder, SCI Understanding, Indwelling Urinary Catheter Dc, ED Pressure Injury Additional Instructions / Restrictions: 1. I have included in the Discharge instructions some literature on things to look out for in patients with spinal cord injuries. Please read through them and if you have any questions please do not hesitate to call me for clarification. 2. All you lab and the urine analysis done 1-2 days prior to discharge looked good. The INR was 2.8 and it has been stable between 2.7 and 2.9 the last 3 times we have checked it. The dose of Warfarin you are taking now is 3 mg daily. 3. Check for any skin breakdown, abraham on the heels and the buttocks, daily. If there are any openings in the skin notify the home health nurse immediately. Also look at the urine in the catheter tubing and bag daily. If the urine becomes cloudy or has a bad odor that is new or if there is blood in the urine then let the home health nurse know. They will want to check a urine analysis to check for infection. The first thing in the morning the urine is usually more concentrated and there may be a stronger ammonia smell......if the smell is different/stronger, abraham if cloudy, then this could be due to a urinary tract infection. 4. If you have fever, sweats, shaking chills, nausea/vomiting, cough call your primary care provider for instructions. 5. If you or your family have any questions please call me. OFFICE: [phone] CELL: [phone] NURSES STATION ON REHAB: [phone] Discharge Orders/Prescriptions Prescriptions: New acetaminophen 325 mg Tablet 650 mg PO Q6H PRN PRN (Reason: Pain 1-10 Or Fever) Qty: 1 0RF bisacodyl 10 mg suppository 10 mg MO DAILY Qty: 30 0RF multivitamin Tablet 1 tab PO DAILY Qty: 1 0RF bisacodyl 10 mg Suppository 10 mg MO 0800 Qty: 30 0RF midodrine 10 mg tablet 10 mg PO TID Qty: 90 0RF Rx Instructions: do not give last dose of day after 6PM or within 4 hrs of bedtime gabapentin 100 mg capsule 100 mg PO QHS Qty: 30 0RF tizanidine 2 mg tablet 2 mg PO Q8H PRN (Reason: muscle spasticity) Qty: 30 0RF warfarin 3 mg tablet 3 mg PO DAILY Qty: 30 0RF midodrine 10 mg tablet 10 mg PO TID Qty: 90 0RF Rx Instructions: do not give last dose of day after 6PM or within 4 hrs of bedtime. Administer at 7:30 AM, 1130 and 2-3 PM Continued amiodarone 200 mg tablet 200 mg PO DAILY Qty: 30 0RF ergocalciferol (vitamin D2) 1,250 mcg (50,000 unit) capsule 1,250 mcg PO QWEEK Qty: 4 0RF Patient Comments: Every Monday Discontinued cefdinir 300 mg capsule 300 mg PO BID enoxaparin 80 mg/0.8 mL syringe 80 mg subcut Q12H midodrine 5 mg tablet 5 mg PO TID pantoprazole 40 mg tablet,delayed release (DR/EC) 40 mg PO DAILY tizanidine 2 mg tablet 2 mg PO Q8H warfarin 2 mg tablet 2 mg PO DAILY Referrals / Follow Up: Tripp Gentile MD [Non-Staff] - 03/11/25 10:00 am Katya Trujillo PA-C [Primary Care Provider] - 03/17/25 10:45 am Disposition Disposition (needs filled in before D/C Order can be placed): Home Health Service Charges/Coding Visit Charges Inpatient E&M: 41094 Disch Hosp >30min
[2025-03-06 14:02] VITALS: BP 123/63; PULSE 70; RESP 16; TEMP 36.9; O2SAT 97
--- NOTE | 2025-03-06 14:03 | NURSING ---
discharged home with [facility] via [facility]. discharge instruction, medications and appointments reviewed with pt and sister. denies questions or concerns
== END 2025-03-06 13:05 | disposition home health service (06) | DRG 92 ==
PROVIDERS: Family Medicine Geriatric Medicine; Admitting Provider Internal Medicine; PCP Family Medicine; Visit Provider Internal Medicine
DX: G95.19 Other vascular myelopathies (principal); I48.92 Unspecified atrial flutter; N30.00 Acute cystitis without hematuria; B96.5 Pseudomonas (aeruginosa) (mallei) (pseudomallei) as the cause of diseases classified elsewhere; G82.20 Paraplegia, unspecified; Z95.2 Presence of prosthetic heart valve; S24.101D Unspecified injury at T1 level of thoracic spinal cord, subsequent encounter; G95.29 Other cord compression; I95.1 Orthostatic hypotension; M79.2 Neuralgia and neuritis, unspecified; I45.19 Other right bundle-branch block; I95.81 Postprocedural hypotension; K59.09 Other constipation; E86.0 Dehydration; R15.9 Full incontinence of feces; N31.9 Neuromuscular dysfunction of bladder, unspecified; Z79.01 Long term (current) use of anticoagulants; R33.9 Retention of urine, unspecified; X58.XXXD Exposure to other specified factors, subsequent encounter; Z79.899 Other long term (current) drug therapy; T83.511D Infection and inflammatory reaction due to indwelling urethral catheter, subsequent encounter
CPT/HCPCS: 36415; 74018; 80048; 80053; 81001; 82533; 83735; 84100; 84443; 85025; 85027; 85610; 87077; 87086; 87088; 87184; 87186; 92523; 93005; 94668; 97110; 97112; 97116; 97140; 97162; 97166; 97530; 97535; 97542; 97802; A4216

== ENCOUNTER 2025-04-04 07:32 | Day surgery (SDC) | payer BC, SELFPAY ==
--- NOTE | 2025-03-28 12:59 | PAT.ANE_ITS ---
Pre-Assessment Diagnosis/Proposed Procedure Planned Operative Procedure(s): Cysto,Insertion Suprapubic Catheter Anesthesia History Anesthesia History - release of information specialist: Anesthesia History - release of information specialist Hx Hospitalization Yes: surgery in 03/27/25 11:33 mike Any Problems With Anesthesia No 03/27/25 11:33 Cholinesterase deficiency No 03/27/25 11:33 You/Your Family Experience No 03/27/25 11:33 fever (hyperthermia) with Relationship Recent Exposure to Contagious Disease Does patient have nerve No 03/27/25 11:33 stimulator Patient instructed to have device shut off --Does patient have Pacemaker or ICD? When Was Last Pacemaker Check QUESTION #4 FULL TEXT: You/Your Family Experience fever (hyperthermia) with Anesthesia Last Oral Intake Last Oral intake: Last Oral Intake NPO since Meds taken in AM with sips of water? Meds patient instructed to take am of surgery PONV PONV - release of information specialist: PONV - release of information specialist Female Yes 03/27/25 11:33 HX of Motion Sickness No 03/27/25 11:33 HX of N/V After Surgery No 03/27/25 11:33 Non-Smoker Yes 03/27/25 11:33 Duration of Surgery greater No 03/27/25 11:33 than 60 minutes Number of Risk Factors 2 03/27/25 11:33 PONV Score Moderate Risk 03/27/25 11:33 Height & Weight Height & Weight: Anesthesia: Height & Weight Height 5 ft 4 in 02/10/25 11:35 Respiratory Assessment Respiratory Assessment - release of information specialist: Respiratory Tract Infection Hx - release of information specialist Hx Respiratory Tract Infection No 03/27/25 11:33 STOP Sleep Apnea STOP Sleep Apnea - release of information specialist: STOP Sleep Apnea - release of information specialist Hx Hypertension Yes: on meds 03/27/25 11:33 Hx Sleep Apnea No 03/27/25 11:33 CPAP BIPAP Do you snore loudly (louder No 03/27/25 11:33 than talking or can be heard Do you often feel tired/ No 03/27/25 11:33 fatigued/ sleepy during daytime? Has anyone observed you stop No 03/27/25 11:33 breathing during sleep? STOP Results Negative 03/27/25 11:33 QUESTION #5 FULL TEXT : Do you snore loudly (louder than talking or can be heard through closed doors)? Tobacco Use History Tobacco Use History - release of information specialist: Tobacco Use History - release of information specialist Tobacco Use Smoking Status Never smoker 03/27/25 11:33 Hx Tobacco Use No 03/27/25 11:33 Years Smoking Packs Smoked per Day Smoking Cessation Date was within the last 15 years Hx Smoking Cessation Date Hx Smoking Cessation Counseling Hematologic Medial History Hematologic Hx - release of information specialist: Hematologic Medical Hx - moving consultant Hx of Blood Transfusion No 03/27/25 11:33 Hx of Transfusion in last 3 No 03/27/25 11:33 Months Date of Last Transfusion (if within last 3 months) Ever experience any problems No 03/27/25 11:33 with transfusion(s)? Specify any problems Hx of Preganancy in last 3 No 03/27/25 11:33 Months Nurse Filling Out Transfusion JZOLLINGE 03/27/25 11:33 & Questions: Date: 03/27/25 03/27/25 11:33 Time: 11:37 03/27/25 11:33 Patient unable to answer at this time (ie. confused, unrespo /Reproduction History /Reproductive History - release of information specialist: /Reproductive Hx- release of information specialist Hx Now No 03/27/25 11:33 Gestational Age (in weeks): EDC: Hx Hx Para Hx Section SAB No 03/27/25 11:33 [facility] Medical History (Updated 03/27/25 @ 11:33 by Judi Nicolas) Uses wheelchair Dietary restriction Non-smoker History of stress test Cardiology follow-up encounter History of rheumatic fever Atrial flutter Chronic anticoagulation Spinal cord injury at T1-T6 level Home Medications ?Medication ?Instructions ?Recorded ?Last Taken ?Type acetaminophen 325 mg tablet 650 mg (2 x 325 mg) PO Q6H PRN PRN 03/05/25 Unknown Rx Pain 1-10 Or Fever #1 TAB amiodarone 200 mg tablet 200 mg PO DAILY b/p #30 tabs 03/05/25 Unknown Rx bisacodyl 10 mg rectal suppository 10 mg [place] DAILY #30 ea 03/05/25 Unknown Rx ergocalciferol (vitamin D2) 1,250 1,250 mcg PO QWEEK s upplement #4 03/05/25 Unknown Rx mcg (50,000 unit) capsule caps gabapentin 100 mg capsule 100 mg PO QHS #30 caps 03/05 Unknown Rx multivitamin 1 tab PO DAILY #1 TAB Unknown Rx tizanidine 2 mg tablet 2 mg PO Q8H PRN muscle spast icity 03/05/25 Unknown Rx #30 tabs midodrine 10 mg tablet 10 mg PO TID #90 tabs Unknown Rx warfarin 3 mg tablet 3 mg PO QODAY 03/27/25 Unkno wn History warfarin 5 mg tablet 1.5 mg PO QODAY 03/27/25 Unk nown History Allergy/AdvReac Type Severity Reaction Status Date / Time No Known Allergies Allergy Verified 03/27/25 11:15 Family History (Updated 02/03/25 @ 11:[address] Brooke Alvarado DO) Grandmother CVA (cerebral vascular accident) maternal GM of a stroke Father , of COVID complications. No problems noted. Other Hypertension Surgical History (Updated 03/27/25 @ 11:33 by Judi Nicolas) History of left atrial appendage closure History of tricuspid valve repair H/O laminectomy History of mitral valve replacement with mechanical valve Social History (Updated 02/03/25 @ 11:[address] 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 Brooke Alvarado DO Status: ADM IN Ordering : Brooke Alvarado DO Date: 02/09/25 Location: Sex: F C Admitted: 02/02/25 Test Reason : MED CHANGE Blood Pressure : */* mmHG Vent. Rate : 63 BPM Atrial Rate : 63 BPM P-R Int : 164 ms QRS Dur : 92 ms QT Int : 444 ms P-R-T Axes : 77 86 62 degrees QTcB Int : 454 ms Normal sinus rhythm Low voltage QRS Incomplete right bundle branch block Borderline ECG When compared with ECG of 07-Feb-2025 12:08, MANUAL COMPARISON REQUIRED DATA IS UNCONFIRMED Confirmed by Osvaldo Torres ([id number]), copy editor NEYMAR NORIEGA ([id number]) on 02/13/2025 10:02:37 AM Referred By: Confirmed By: Osvaldo Torres 02/13/25 1002 Recommendation Anesthesia Recommendation Anesthesia recommendation: OPTIMIZED for anesthesia
[2025-04-04] VITALS (10 sets, daily range): BP systolic 114–146; BP diastolic 55–86; PULSE 58–66; RESP 16; TEMP 36.1–36.5; O2SAT 95–100; BMI 26.6
--- NOTE | 2025-04-04 07:55 | PCM.PRE.AN2 ---
ASA Classification* ASA Classification ASA Classification: 3 Assessment & Plan Anesthesia* Anesthesia Assessment Anesthesia Assessment: Discussed sedation and/or anesthesia options, risks, benefits, and alternatives with patient/parents/legal guardian/POA. Questions invited. The patient/parents/legal guardian/POA seems to understand and agrees to proceed with anesthesia plan. Reviewed the physical assessment, medical history, allergy history and patient home medications list prior to surgery/procedure/anesthetic and documented any changes. Performed airway and anesthesia risk assessments. Anesthesia Type Anesthesia Type: MAC Anesthesia Focused Assessment* Airway Assessment Mouth opens: >3 cm Mallampati Score: II Focused Labs Anesthesia Preop lab: CBC WBC 8.6 K/mm3 (4.4-11.0) 03/04/25 05:03/04/25 RBC 3.87 M/mm3 (4.2-5.4) L 03/04/25 05:03/04/25 Hgb 12.1 g/dL (12.0-15.0) 03/04/25 05:03/04/25 Hct 36.9 % (37-47) L 03/04/25 05:03/04/25 Plt Count 283 K/mm3 (150-450) 03/04/25 05:03/04/25 CHEMISTRY Potassium 4.2 mmol/L (3.3-5.1) 03/04/25 05:03/04/25 Sodium 137 mmol/L (133-145) 03/04/25 05:03/04/25 Magnesium 2.1 mg/dL (1.5-2.2) 02/11/25 05:36 02/11/25 Phosphorus 3.8 mg/dL (2.7-4.5) 02/11/25 05:02/11/25 BUN 13 mg/dL (4-19) 03/04/25 05:03/04/25 Creatinine 0.68 mg/dL (0.70-1.20) L 03/04/25 05:03/04/25 Glucose 93 mg/dL (70-99) 03/04/25 05:03/04/25 TSH 2.690 uIU/mL (0.300-4.200) 02/04/25 05:18 02/04/25 COAG PT 30.2 SECONDS (11.7-14.9) H 03/05/25 05:34 03/05/25 Pre-Assessment Diagnosis/Proposed Procedure Planned Operative Procedure(s): Cysto,Insertion Suprapubic Catheter Anesthesia History Anesthesia History - sole edge inker machine: Anesthesia History - sole edge inker machine Hx Hospitalization Yes: surgery in 03/27/25 11:33 mike Any Problems With Anesthesia No 03/27/25 11:33 Cholinesterase deficiency No 03/27/25 11:33 You/Your Family Experience No 03/27/25 11:33 fever (hyperthermia) with Relationship Recent Exposure to Contagious Disease Does patient have nerve No 03/27/25 11:33 stimulator Patient instructed to have device shut off --Does patient have Pacemaker or ICD? When Was Last Pacemaker Check QUESTION #4 FULL TEXT: You/Your Family Experience fever (hyperthermia) with Anesthesia Last Oral Intake Last Oral intake: Last Oral Intake NPO since Meds taken in AM with sips of water? Meds patient instructed to take am of surgery PONV PONV - sole edge inker machine: PONV - sole edge inker machine Female Yes 03/27/25 11:33 HX of Motion Sickness No 03/27/25 11:33 HX of N/V After Surgery No 03/27/25 11:33 Non-Smoker Yes 03/27/25 11:33 Duration of Surgery greater No 03/27/25 11:33 than 60 minutes Number of Risk Factors 2 03/27/25 11:33 PONV Score Moderate Risk 03/27/25 11:33 Height & Weight Height & Weight: Anesthesia: Height & Weight Height 5 ft 4 in 04/03/25 07:49 Weight: 70.307 kg 04/03/25 07:49 Respiratory Assessment Respiratory Assessment - sole edge inker machine: Respiratory Tract Infection Hx - sole edge inker machine Hx Respiratory Tract Infection No 03/27/25 11:33 STOP Sleep Apnea STOP Sleep Apnea - sole edge inker machine: STOP Sleep Apnea - sole edge inker machine Hx Hypertension Yes: on meds 03/27/25 11:33 Hx Sleep Apnea No 03/27/25 11:33 CPAP BIPAP Do you snore loudly (louder No 03/27/25 11:33 than talking or can be heard Do you often feel tired/ No 03/27/25 11:33 fatigued/ sleepy during daytime? Has anyone observed you stop No 03/27/25 11:33 breathing during sleep? STOP Results Negative 03/27/25 11:33 QUESTION #5 FULL TEXT : Do you snore loudly (louder than talking or can be heard through closed doors)? Tobacco Use History Tobacco Use History - sole edge inker machine: Tobacco Use History - sole edge inker machine Tobacco Use Smoking Status Never smoker 03/27/25 11:33 Hx Tobacco Use No 03/27/25 11:33 Years Smoking Packs Smoked per Day Smoking Cessation Date was within the last 15 years Hx Smoking Cessation Date Hx Smoking Cessation Counseling Hematologic Medial History Hematologic Hx - sole edge inker machine: Hematologic Medical Hx - moss gatherer Hx of Blood Transfusion No 03/27/25 11:33 Hx of Transfusion in last 3 No 03/27/25 11:33 Months Date of Last Transfusion (if within last 3 months) Ever experience any problems No 03/27/25 11:33 with transfusion(s)? Specify any problems Hx of Preganancy in last 3 No 03/27/25 11:33 Months Nurse Filling Out Transfusion JZOLLINGE 03/27/25 11:33 & Questions: Date: 03/27/25 03/27/25 11:33 Time: 11:37 03/27/25 11:33 Patient unable to answer at this time (ie. confused, unrespo /Reproduction History /Reproductive History - sole edge inker machine: /Reproductive Hx- sole edge inker machine Hx Now No 03/27/25 11:33 Gestational Age (in weeks): EDC: Hx Hx Para Hx Section SAB No 03/27/25 11:33 Active Medications Active Medications: Current Medications Generic Name Dose Route Start Last Admin Trade Name Freq PRN Reason Stop Dose Admin Cefazolin Sodium 2 gm/ Sodium 110 mls @ 150 mls/hr 04/04/25 09:50 Chloride IV 04/04/25 10:33 INTRAOP ONE PFSH Medical History Uses wheelchair Dietary restriction Non-smoker History of stress test Cardiology follow-up encounter History of rheumatic fever Atrial flutter Chronic anticoagulation Spinal cord injury at T1-T6 level Home Medications ?Medication ?Instructions ?Recorded ?Last Taken ?Type acetaminophen 325 mg tablet 650 mg (2 x 325 mg) PO Q6H PRN PRN 03/05/25 Unknown Rx Pain 1-10 Or Fever #1 TAB amiodarone 200 mg tablet 200 mg PO DAILY b/p #30 tabs 03/05/25 Unknown Rx bisacodyl 10 mg rectal suppository 10 mg [place] DAILY #30 ea 03/05/25 Unknown Rx ergocalciferol (vitamin D2) 1,250 1,250 mcg PO QWEEK supplement #4 03/05/25 Unknown Rx mcg (50,000 unit) capsule caps gabapentin 100 mg capsule 100 mg PO QHS #30 caps 03/05/25 Unknown Rx multivitamin 1 tab PO DAILY #1 TAB 03/05/25 Unknown Rx tizanidine 2 mg tablet 2 mg PO Q8H PRN muscle spasticity 03/05/25 Unknown Rx #30 tabs midodrine 10 mg tablet 10 mg PO TID #90 tabs 03/06/25 Unknown Rx warfarin 3 mg tablet 3 mg PO QODAY 03/27/25 Unknown History warfarin 5 mg tablet 1.5 mg PO QODAY 03/27/25 Unknown History Allergy/AdvReac Type Severity Reaction Status Date / Time No Known Allergies Allergy Verified 03/27/25 11:15 Family History Grandmother CVA (cerebral vascular accident) maternal GM of a stroke Father , of COVID complications. No problems noted. 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
[2025-04-04 08:07] LABS: INR Fingerstick 1.6; Prothrombin Time Fingerstick 18.4 SEC (11.7-14.9)
[2025-04-04] MEDS: Lactated Ringers 1,000 ML 15 ML IV (08:25)
[2025-04-04 08:50] LABS: International Normalized Ratio 1.5
--- NOTE | 2025-04-04 09:39 | PCM.HP.STD ---
HPI - General General Date of Service: 04/04/25 Chief Complaint: Spinal cord injury HPI Narrative VIC GOLDSTEIN, is a 49 F who presents for placement of a suprapubic catheter she currently has an injury to his spinal cord T1-T6 as a result of a hematoma spontaneously. She may have recovery of her function with time so could put a suprapubic catheter to manage her bladder for the time being as her bladder function recovers we might be able to do intermittent clamping trials. [facility] Medical History Uses wheelchair Dietary restriction Non-smoker History of stress test Cardiology follow-up encounter History of rheumatic fever Atrial flutter Chronic anticoagulation Spinal cord injury at T1-T6 level Home Medications ?Medication ?Instructions ?Recorded ?Last Taken ?Type acetaminophen 325 mg tablet 650 mg (2 x 325 mg) PO Q6H PRN PRN 03/05/25 Unknown Rx Pain 1-10 Or Fever #1 TAB amiodarone 200 mg tablet 200 mg PO DAILY b/p #30 tabs 03/05/25 Unknown Rx bisacodyl 10 mg rectal suppository 10 mg [place] DAILY #30 ea 03/05/25 Unknown Rx ergocalciferol (vitamin D2) 1,250 1,250 mcg PO QWEEK supplement #4 03/05/25 Unknown Rx mcg (50,000 unit) capsule caps gabapentin 100 mg capsule 100 mg PO QHS #30 caps 03/05/25 Unknown Rx multivitamin 1 tab PO DAILY #1 TAB 03/05/25 Unknown Rx tizanidine 2 mg tablet 2 mg PO Q8H PRN muscle spasticity 03/05/25 Unknown Rx #30 tabs midodrine 10 mg tablet 10 mg PO TID #90 tabs 03/06/25 04/04/25 07:00 Rx warfarin 3 mg tablet 3 mg PO QODAY 03/27/25 Unknown History warfarin 5 mg tablet 1.5 mg PO QODAY 03/27/25 03/29/25 History Allergy/AdvReac Type Severity Reaction Status Date / Time No Known Allergies Allergy Verified 03/27/25 11:15 Family History Grandmother CVA (cerebral vascular accident) maternal GM of a stroke Father , of COVID complications. No problems noted. 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 Smoking Status: Never smoker alcohol intake: never substance use type: does not use diet: gluten free scott/scientologist: Mennonite Vital Signs Vital Signs Vital Signs: 04/04/25 08:20 04/04/25 08:20 Temperature 97.7 F L Temperature Source Temporal Pulse Rate 65 Respiratory Rate 16 Respiratory Pattern Normal Blood Pressure 146/86 H Blood Pressure Mean 106 Blood Pressure Source Monitor Blood Pressure Position Semi-Fowlers Blood Pressure Location Right Arm Pulse Ox 100 Oxygen Delivery Method Room Air Weight Weight: 70.307 kg Body Mass Index (BMI) 26.6 Results Lab / Micro Data Labs: Laboratory Results - last 24 hr 04/04/25 07:42: POC PT 18.4 H, INR 1.6 04/04/25 07:46: PT 18.0 H, INR 1.5
--- NOTE | 2025-04-04 09:40 | DCINST_ITS ---
Discharge Instructions Diet Discharge Diet: No restrictions DC O2, CPAP, BIPAP needs Home O2 Discharge instructions: No Dressing / Incision Discharge Activity: Return to Normal Activity and May Not Drive (while taking narcotic pain medications.) Dressing / Incision Call your doctor if you observe: Fever of 101 or Higher Catheter: Valencia to leg bag and Valencia to large bag Drain: [place] Follow Up Care Please Follow Up With: Deshawn Anguiano MD When: Call [phone] for an appointment Test Results: Test results from this visit will be discussed in further detail at your follow- up appointment, if applicable. Discharge Plan Admission Primary Reason for Your Visit: Suprapubic catheter placement Attending Provider: Deshawn Anguiano Primary Care Provider: Katya Trujillo Instructions Print Language: [place] Islander Discharge Orders/Prescriptions Prescriptions: Continued acetaminophen 325 mg Tablet 650 mg PO Q6H PRN PRN (Reason: Pain 1-10 Or Fever) Qty: 1 0RF bisacodyl 10 mg suppository 10 mg [place] DAILY Qty: 30 0RF multivitamin Tablet 1 tab PO DAILY Qty: 1 0RF amiodarone 200 mg tablet 200 mg PO DAILY Qty: 30 0RF ergocalciferol (vitamin D2) 1,250 mcg (50,000 unit) capsule 1,250 mcg PO QWEEK Qty: 4 0RF Patient Comments: Every Monday gabapentin 100 mg capsule 100 mg PO QHS Qty: 30 0RF tizanidine 2 mg tablet 2 mg PO Q8H PRN (Reason: muscle spasticity) Qty: 30 0RF midodrine 10 mg tablet 10 mg PO TID Qty: 90 0RF Patient Comments: took 1/2 tab this morning 04/04/25 Rx Instructions: do not give last dose of day after 6PM or within 4 hrs of bedtime. Administer at 7:30 AM, 1130 and 2-3 PM warfarin 5 mg tablet 1.5 mg PO QODAY warfarin 3 mg tablet 3 mg PO QODAY Referrals / Follow Up: Deshawn Anguiano MD [Med Staff - Active Staff] - Katya Trujillo PA-C [Primary Care Provider] - Disposition Disposition (needs filled in before D/C Order can be placed): Home, Self Care
[2025-04-04] MEDS: Cefazolin 2 GM in 0.9% Normal Saline (100mL Bag) 100 ML IV (09:45)
[2025-04-04] MEDS: Lidocaine 2% (20 ml mdv) 20 ML Vial (09:59)
--- NOTE | 2025-04-04 10:08 | OP.PCM_ITS ---
Operative Report (Standard) Operative Information Date of Procedure: 04/04/25 Pre-Operative Diagnosis: Placement of a suprapubic catheter, neurogenic bladder spinal cord injury Post-Operative Diagnosis: The same Surgery/Procedure Performed: Placement of suprapubic catheter water system operator: No Type of Anesthesia: General RN Documented Start/Stop Times: Operation Date: 04/04/25 09:50 Case Time Into Pre-Op 04/04/25 08:05 Out of Pre-Op 04/04/25 09:42 Anesthesia Start 04/04/25 09:45 Into Room 04/04/25 09:45 Procedure Start 04/04/25 10:02 Procedure End 04/04/25 10:07 Procedure Start Time: 10:02 Procedure Stop Time: 10:09 Select all DRAINS/GRAFTS/IMPLANTS that apply: Drains Drain details: SP tube 16 Maltese Estimated Blood Loss: Minimal Specimen collected: No Description of surgery: Indication this is a 49-year-old female unfortunately had a spontaneous hematoma develop on her spinal cord she was on blood thinners for cardiac reasons and had emergency decompression surgery but 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 She does not have enough sufficient function of her hands to do self-catheterization. She is on a chronic catheter very difficult for the family to change it she needs a [place] to move her around and to transfer she is still learning to transfer. Of course her injury could be temporary she may recover but for the time being we will plan to place an SP tube for catheter bladder management will need to change the tube every 4 to 6 weeks the family can do this on their own if she can do this later on for now we will place a Valencia catheter and I will see him in a month for a SP tube change in 1 month from now. Patient was taken back to the operating room after induction of anesthesia she was placed supine on the table patient was frog-legged a Valencia catheter was removed the urethrovaginal area prepped and draped in usual fashion lower belly was prepped and draped in usual fashion went into the bladder with a flexible ureteroscope the bladder was normal I then flexed up and look into the top of the bladder made a small incision in the midline above the suprapubic catheter about 2 cm above the suprapubic bone made a small incision used the trocar to then advanced through the skin into the bladder under direct visualization once the trocar was into the bladder then I advanced a 16 Maltese catheter into the bladder and then 10 cc of sterile water put in the balloon catheter was then pulled back the trocar was then pulled back over the catheter and removed we then secured the catheter to the lower abdomen with a silk stitch. Patient's a nesthetic was reversed she will go home with a suprapubic catheter. Minimal bleeding. I will see her back in the office in 1 month for suprapubic catheter change Surgical Findings: Suprapubic catheter placed Complications Complications: No Admit VTE Documentation VTE Present on Admission: No VTE Mechan Device Prophylaxis: SCD's VTE Pharm Prophylaxis ordered?: No
--- NOTE | 2025-04-04 12:05 | PCM.POST.ANE ---
Anesthesia: Postop Eval I Current Vital Signs Temperature: 97 F Pulse Rate: 66 Blood Pressure: 114/55 Respiratory Rate: 16 Pulse Ox: 99 Assessment Airway patent: Yes Spontaneous unlabored respirations: Yes Mental status: Awake nausea: No Vomiting: No Anesthesia Complication: No Fluid Hydration Crystalloid volume administer (ml): 100 Total IV fluid infused: 100 Progress Note Anesthesia document: Postop Eval 1 completed: Yes
--- NOTE | 2025-04-04 13:50 | PCM.POSTANE2 ---
Anesthesia Postop Eval I Sum Postop Eval Completion status Anesthesia document: Postop Eval 1 completed: Yes Anesthesia Postop Eval I Summary Anesthesia Postop Eval I Summary: Anesthesia Postop Eval I: Assessment Summary Airway patent Yes 04/04/25 13:49 Spontaneous unlabored Yes 04/04/25 13:49 respirations Mental status Awake 04/04/25 13:49 nausea No 04/04/25 13:49 Vomiting No 04/04/25 13:49 Anesthesia Postop Eval I: Fluid Summary Crystalloid volume administer 100 04/04/25 13:49 (ml) Colloids volume administered ( ml) Blood Product volume administered (ml) Total IV fluid infused 100 04/04/25 13:49 Anesthesia Postop Eval I: Summary Notes Anesthesia Complication No 04/04/25 13:49 Anesthesia Complication Comment: Post-operative progress note Anesthesia: Postop Eval II Evaluation Mental status: Awake Pain Level: 0 nausea: No Vomiting: No
== END 2025-04-04 11:54 | disposition home or self-care (01) ==
LOC: SDC 07:37 → AC 07:39
PROVIDERS: PCP Family Medicine; Referring Provider Urology; Visit Provider Urology
PROC: 0T9B40Z Drainage of Bladder with Drainage Device, Percutaneous Endoscopic Approach (ICD-10-PCS; CPT 52005; principal; 2025-04-04 09:40)
DX: N31.0 Uninhibited neuropathic bladder, not elsewhere classified (principal); G82.20 Paraplegia, unspecified; Z79.01 Long term (current) use of anticoagulants; S24.102S Unspecified injury at T2-T6 level of thoracic spinal cord, sequela; S24.101S Unspecified injury at T1 level of thoracic spinal cord, sequela; I10 Essential (primary) hypertension; Z79.899 Other long term (current) drug therapy
CPT/HCPCS: 51102; 00800; 36415; 36416; 85610; J2405